=== PATIENT | female | born 1980 | race Caucasian/White ===

== ENCOUNTER 2020-11-29 15:23 | Outpatient (REF) | payer MEDICARE, MEDICAID, SELFPAY ==
[2020-11-30 11:57] LABS: BV Int Neg Control Negative (Negative); BV Int Pos Control Positive (Positive)
[2020-12-01 21:42] LABS: C. trachomatis RNA TMA NOT DETECTED (NOT DETECTED); N. gonorrhoeae RNA TMA NOT DETECTED (NOT DETECTED)
== END 2020-11-29 15:24 | disposition home or self-care (01) ==
LOC: HO.LAB 15:23
PROVIDERS: Visit Provider Advanced Practice Midwife
DX: Z20.2 Contact with and (suspected) exposure to infections with a predominantly sexual mode of transmission (principal); K08.89 Other specified disorders of teeth and supporting structures; Z13.1 Encounter for screening for diabetes mellitus; Z13.220 Encounter for screening for lipoid disorders; Z13.29 Encounter for screening for other suspected endocrine disorder
CPT/HCPCS: 36415; 80053; 80061; 83036; 84443; 85025; 86704; 86780; 86803; 87389; 87480; 87491; 87510; 87591; 87660; 99212

== ENCOUNTER 2020-11-29 16:19 | Outpatient (REF) | payer MEDICARE, MEDICAID, SELFPAY ==
[2020-11-29 17:14] LABS: MANUAL DIFF FLAG NO
[2020-11-29 17:28] LABS: Basophils Absolute Auto 0.1 X10*3/uL (0.0-0.2); Basophils Percent Auto 0.5 % (0-2); Eosinophils Absolute Auto 0.1 X10*3/uL (0.0-0.4); Eosinophils Percent Auto 1.2 % (0-4); Hematocrit 41.1 % (37-47); Hemoglobin 13.2 g/dl (12.0-16.0); Imm Gran Abs Auto 0.02 X10*3/uL (0.00-0.03); Imm Gran Pct Auto 0.2 % (0.0-0.4); Lymphocytes Absolute Auto 2.5 X10*3/uL (1.2-4.9); Lymphocytes Percent Auto 26.5 % (20-40); Mean Corpuscular HGB Conc 32.1 g/dl (31.0-35.0); Mean Corpuscular Hemoglobin 27.7 pg (27.0-33.0); Mean Corpuscular Volume 86.2 fL (80-98); Mean Platelet Volume 10.3 fL (9.4-12.3); Monocytes Absolute Auto 0.7 X10*3/uL (0.1-1.2); Monocytes Percent Auto 7.6 % (2-11); Platelet Count 243 X10*3/uL (160-400); Red Blood Count 4.77 X10*6/uL (4.20-5.50); Red Cell Distribution Width 13.3 % (11.0-16.0); White Blood Count 9.3 X10*3/uL (4.8-10.8)
[2020-11-29 17:40] LABS: Alanine Aminotransferase 6 U/L (0-31); Albumin Level 4.1 g/dL (3.5-5.0); Alkaline Phosphatase 58 U/L (39-117); Anion Gap 11 (12-20); Aspartate Amino Transferase 13 U/L (5-31); Bilirubin Total 0.7 mg/dL (0.0-1.0); Blood Urea Nitrogen 7 mg/dL (9-16); Calcium 8.6 mg/dL (8.4-10.2); Carbon Dioxide 28 mmol/L (22-29); Chloride 107 mmol/L (96-108); Cholesterol 183 mg/dL; Estimated Glomerular Filt Rate > 60; Glucose Fasting 89 mg/dL (60-99); HDL Cholesterol 43 mg/dL; LDL Cholesterol Calculated 126 mg/dl; Sodium 141 mmol/L (135-145); Total Protein 6.4 g/dL (6.5-8.0); Triglycerides 72 mg/dL
[2020-11-29 17:58] LABS: Syphilis Screen Nonreactive (Nonreactive)
[2020-11-29 18:00] LABS: TSH reflex Free T4 0.59 mIU/mL (0.32-4.0)
[2020-11-29 18:12] LABS: Estimated Average Glucose 97 mg/dL
[2020-11-30 09:08] LABS: ~HepC Num1 0.24 S/CO (0.00-0.79); ~Hepatitis C Antibody Nonreactive (Nonreactive)
[2020-11-30 09:19] LABS: HBc Num1 0.09 S/CO (0.00-0.79); HIV AB/AG Nonreactive (Nonreactive); HIV Num 1 0.16 S/CO (0.00-0.99); Hepatitis B Core Antibody Nonreactive (Nonreactive)
== END 2020-11-29 16:20 | disposition home or self-care (01) ==
LOC: HO.LAB 16:19
PROVIDERS: PCP Physician Assistant; Visit Provider Advanced Practice Midwife
DX: Z13.89 Encounter for screening for other disorder (principal)
CPT/HCPCS: 36415; 80053; 80061; 83036; 84443; 85025; 86704; 86780; 86803; 87389

== ENCOUNTER 2021-06-14 11:44 | Outpatient (REF) | payer MEDICARE, MEDICAID, SELFPAY ==
[2021-06-14 12:53] LABS: Glucose Urine UA NEG (NEG); Leukocyte Esterase Urine NEG (NEG); Nitrite Urine NEG (NEG); Urine Blood NEG (NEG); Urine Ketones NEG (NEG); Urine Protein NEG (NEG-TRACE)
[2021-06-14 12:59] LABS: Appearance Urine CLEAR; Color Urine YELLOW
[2021-06-14 13:05] LABS: Hematocrit 41.1 % (37-47); Hemoglobin 13.3 g/dl (12.0-16.0); Mean Corpuscular HGB Conc 32.4 g/dl (31.0-35.0); Mean Corpuscular Hemoglobin 27.4 pg (27.0-33.0); Mean Corpuscular Volume 84.6 fL (80-98); Mean Platelet Volume 10.4 fL (9.4-12.3); Platelet Count 263 X10*3/uL (160-400); Red Blood Count 4.86 X10*6/uL (4.20-5.50); Red Cell Distribution Width 13.6 % (11.0-16.0); White Blood Count 7.6 X10*3/uL (4.8-10.8)
[2021-06-14 13:15] LABS: Estimated Average Glucose 100 mg/dL; Hemoglobin A1c % 5.1 %
[2021-06-14 13:19] LABS: Albumin Level 4.1 g/dL (3.5-5.0); Alkaline Phosphatase 56 U/L (39-117); Anion Gap 12 (12-20); Aspartate Amino Transferase 12 U/L (5-31); Blood Urea Nitrogen 10 mg/dL (9-16); Calcium 9.1 mg/dL (8.4-10.2); Carbon Dioxide 26 mmol/L (22-29); Chloride 105 mmol/L (96-108); Estimated Glomerular Filt Rate > 60; Glucose Fasting 89 mg/dL (60-99); Potassium 4.3 mmol/L (3.3-5.1); Sodium 139 mmol/L (135-145); Total Protein 6.5 g/dL (6.5-8.0)
[2021-06-14 13:32] LABS: Alanine Aminotransferase < 6 U/L (0-31)
[2021-06-14 13:36] LABS: TSH reflex Free T4 1.12 uIU/mL (0.32-4.0)
== END 2021-06-14 11:45 | disposition home or self-care (01) ==
LOC: HO.LAB 11:44
PROVIDERS: Absent Provider Advanced Practice Midwife; PCP Physician Assistant; Visit Provider Physician Assistant
DX: R30.0 Dysuria (principal); I10 Essential (primary) hypertension; Z12.39 Encounter for other screening for malignant neoplasm of breast; Z13.1 Encounter for screening for diabetes mellitus
CPT/HCPCS: 36415; 80053; 81003; 83036; 84443; 85027

== ENCOUNTER 2021-06-15 12:22 | Outpatient (REF) | payer MEDICARE, MEDICAID, SELFPAY ==
--- NOTE | ~2021-06-15 | XR_ITS ---
EXAMINATION: XR CERVICAL SPINE CLINICAL INFORMATION: Cervicalgia. COMPARISON: None TECHNIQUE: 3 views of the cervical spine were obtained. FINDINGS: There are no prevertebral soft tissue or bony abnormalities demonstrated. No compression fractures or subluxations are identified. Alignment is maintained at the atlanto-axial articulation. The disc spaces are preserved. No endplate changes are seen. The prevertebral soft tissues are normal. The foramina are patent. XR/XR cervical spine 3V IMPRESSION: Unremarkable examination.
== END 2021-06-15 12:23 | disposition home or self-care (01) ==
LOC: HO.XRAY 12:22
PROVIDERS: PCP Physician Assistant; Visit Provider Physician Assistant
DX: M54.2 Cervicalgia (principal)
CPT/HCPCS: 72040

== ENCOUNTER 2021-09-08 11:36 | Outpatient (RCR) | payer MEDICARE, MEDICAID, SELFPAY ==
--- NOTE | 2021-09-08 13:39 | MHC.PT.EP ---
[facility] [place] Office [place] Office [place] Office [address] [place] [address] [phone] F: [phone] F: [phone] F: [phone] F: [phone] Physical Therapy Plan of Care Date of Evaluation: Date of Surgery: n/a Diagnosis: unspecified thoracic, thoracolumbar disc disorder Assessment: Patient is a 41 year old female presenting to PT with complaints of pain in her low back extending down BLE. Pt reports onset of pain began 10 years ago due to insidious onset. She presents today with impairments in lumbar ROM, pain, posture, hip strength, core strength, and +ttp lumbar paraspinals. 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 Pt expresses care home goal not specified, and is motivated to work towards this in PT. Clinical presentation today is most consistent with signs and sx associated with low back pain possible with some discogenic componenet and pt will benefit from skilled PT to address the following problems and impairments noted upon evaluation: lumbar ROM, pain, posture, hip strength, core strength, and +ttp lumbar paraspinals. These problems limit the patient with the following functional activities: ambulation, sleep, bending, lifting, ADLs, sitting, and transfers . The prescribed treatment plan of care is medically necessary. Co-morbidities of latex allergy and hx cervical cancer were identified and taken into considerations of plan of care. Pt was educated on HEP, role of PT, prognosis, POC. Frequency and Duration: The patient will be seen 2 x week x 4 weeks Short Term Goals: Pt will demonstrate improved postural awareness by sitting with biomechanically correct posture without cues throughout session to improve overall postural function in 2 weeks. Pt will demonstrate good TA recruitment in hook lying, sitting, and standing in 2 weeks. Pt will demonstrate lumbar AROM in available range without increase in pain in 2 weeks. Pt will demonstrate increased B hip strength by 1/3 MMT for increased lumbopelvic stability in 2 weeks. Pt will demonstrate only minimal ttp to lumbar paraspinals in 2 weeks. Care Home Goals: Pt will demonstrate improved ability to change positions in bed in 4 weeks with pain <3/10 for improved ability to transfer. Pt will demonstrate ability to complete all ADLs including caring for her kids with pain <3/10 in 4 weeks to allow return to PLOF. Pt will demonstrate ability to bend with pain <3/10 in 4 weeks to improve ability to clean at home. Pt will demonstrate ability to ambulate community distances in 4 weeks with min to no pain for improved access to the community. Treatment Plan: Modalities to reduce pain, spasms and effusion. Manual therapy to restore motion and function. Therapeutic exercise to improve strength and flexibility. Neuromuscular re-education for posture and balance. Therapeutic activities to return to functional activities of daily living. Electronically signed by: Yolanda Chowdhury, PT, DPT, ATC Please sign and return to therapist. Thank you for your referral.
--- NOTE | 2021-09-21 12:52 | MHC.PT.DC ---
[facility] [place] Office [place] Office [place] Office [address] [place] [address] [phone] F: [phone] F: [phone] F: [phone] F: [phone] Physical Therapy Discharge Report Diagnosis: unspecified thoracic, thoracolumbar disc disorder Date of Surgery: n/a Date of Evaluation: 09/08/21 Date of Discharge: 09/21/21 Treatments to Date: 1 Cancellations to Date: 0 No Shows to Date: 3 Discharge Status: Visit Non-compliance Discharge Summary: Pt has failed to comply with [facility] [place] policy and no showed 3 appointments. She has not returned since evaluation and her current status is unknown. Electronically signed by: Yolanda Chowdhury, PT, DPT, ATC Please sign and return to therapist. Thank you for your referral.
== END 2021-09-21 12:52 | disposition home or self-care (01) ==
LOC: HO.PT 11:36
PROVIDERS: PCP Physician Assistant; Visit Provider Physician Assistant
DX: M51.9 Unspecified thoracic, thoracolumbar and lumbosacral intervertebral disc disorder (principal)
CPT/HCPCS: 97110; 97161

== ENCOUNTER 2022-01-06 10:55 | Outpatient (REF) | payer MEDICARE, MEDICAID, OTHER, SELFPAY ==
--- NOTE | ~2022-01-06 | XR_ITS ---
EXAMINATION: XR THORACIC SPINE XR CERVICAL SPINE CLINICAL INFORMATION: Pain of thoracic spine. Cervicalgia. COMPARISON: Cervical spine radiographs from 06/15/2021 TECHNIQUE: Cervical spine, 5 views Thoracic spine, 3 views FINDINGS: Cervical spine: The craniocervical junction is normal. The dens and atlantodental articulation are intact. The cervical vertebra have normal height. Alignment is normal. No fracture, subluxation or prevertebral soft tissue swelling. No evidence of neural foraminal stenosis. The disc spaces are normal. The visualized lung apices are normal. Thoracic spine: The thoracic vertebra have normal height and alignment. The disc spaces are maintained. No vertebral endplate erosion or paraspinal soft tissue swelling. The visualized lungs are well expanded and clear. Cardiomediastinal silhouette is normal. XR/XR thoracic spine 3V IMPRESSION: Normal radiographic examinations of the cervical and thoracic spine.
--- NOTE | ~2022-01-06 | XR_ITS ---
EXAMINATION: XR THORACIC SPINE XR CERVICAL SPINE CLINICAL INFORMATION: Pain of thoracic spine. Cervicalgia. COMPARISON: Cervical spine radiographs from 06/15/2021 TECHNIQUE: Cervical spine, 5 views Thoracic spine, 3 views FINDINGS: Cervical spine: The craniocervical junction is normal. The dens and atlantodental articulation are intact. The cervical vertebra have normal height. Alignment is normal. No fracture, subluxation or prevertebral soft tissue swelling. No evidence of neural foraminal stenosis. The disc spaces are normal. The visualized lung apices are normal. Thoracic spine: The thoracic vertebra have normal height and alignment. The disc spaces are maintained. No vertebral endplate erosion or paraspinal soft tissue swelling. The visualized lungs are well expanded and clear. Cardiomediastinal silhouette is normal. XR/XR cervical spine 4V IMPRESSION: Normal radiographic examinations of the cervical and thoracic spine.
[2022-01-06 11:52] LABS: Hematocrit 41.9 % (37.0-47.0); Hemoglobin 13.5 g/dl (12.0-16.0); Mean Corpuscular HGB Conc 32.2 g/dl (31.0-35.0); Mean Corpuscular Volume 86.9 fL (80.0-98.0); Mean Platelet Volume 9.9 fL (9.4-12.3); Platelet Count 274 X10*3/uL (160-400); Red Blood Count 4.82 X10*6/uL (4.20-5.50); Red Cell Distribution Width 13.7 % (11.0-16.0); White Blood Count 5.9 X10*3/uL (4.8-10.8)
[2022-01-06 11:53] LABS: Appearance Urine HAZY; Color Urine YELLOW; Glucose Urine UA NEG (NEG); Leukocyte Esterase Urine NEG (NEG); Nitrite Urine POS (NEG); PH 6.5 (5.0-8.0); UACC Culture Trigger YES; Urine Blood NEG (NEG); Urine Ketones NEG (NEG); Urine Protein NEG (NEG-TRACE)
[2022-01-06 12:14] LABS: Alanine Aminotransferase < 6 U/L (0-31); Alkaline Phosphatase 53 U/L (39-117); Anion Gap 10 (12-20); Aspartate Amino Transferase 11 U/L (5-31); Bilirubin Direct 0.3 mg/dL (0.0-0.5); Bilirubin Total 0.7 mg/dL (0.0-1.0); Blood Urea Nitrogen 8 mg/dL (9-16); Calcium 9.1 mg/dL (8.4-10.2); Carbon Dioxide 28 mmol/L (22-29); Chloride 107 mmol/L (96-108); Estimated Glomerular Filt Rate > 60; Glucose Random 113 mg/dL (60-115); Potassium 4.6 mmol/L (3.3-5.1); Sodium 140 mmol/L (135-145); Total Protein 6.2 g/dL (6.5-8.0)
[2022-01-06 12:44] LABS: WBC Urine 0-2 /HPF (0-4)
[2022-01-06 12:47] LABS: Bacteria Urine 3+ /LPF; RBC Urine 0-2 /HPF (0); Squamous Epithelial Cell Urine 1+ /LPF; Trichomonas Urine NOTED
[2022-01-07 08:42] LABS: SARS COV2 IgG Positive (Negative)
[2022-01-13 23:17] LABS: Estrogen 310.3 pg/mL
== END 2022-01-06 10:56 | disposition home or self-care (01) ==
LOC: HO.LAB 10:55
PROVIDERS: PCP Physician Assistant; Visit Provider Physician Assistant
DX: M54.2 Cervicalgia (principal); M54.6 Pain in thoracic spine; B34.9 Viral infection, unspecified; R30.0 Dysuria; R23.2 Flushing; Z01.84 Encounter for antibody response examination
CPT/HCPCS: 36415; 72050; 72072; 80048; 80076; 81001; 81003; 82672; 85027; 86769; 87086; 87088; 87186

== ENCOUNTER 2022-04-10 10:55 | Outpatient (REF) | payer OTHER, SELFPAY ==
--- NOTE | ~2022-04-10 | XR_ITS ---
EXAMINATION: XR LUMBOSACRAL SPINE CLINICAL INFORMATION: COMPARISON: None TECHNIQUE: Three views of the lumbosacral spine. FINDINGS: The vertebral bodies and posterior elements are normal. Well-developed partially lumbarized S1. The disc spaces are preserved and the vertebral alignment is normal. The paraspinal soft tissues are normal. XR/XR lumbar spine 2-3V IMPRESSION: Normal radiograph. Normal variant, well-developed partially lumbarized S1. Intervertebral disc spaces are preserved.
== END 2022-04-10 10:56 | disposition home or self-care (01) ==
LOC: HO.XRAY 10:55
PROVIDERS: PCP Physician Assistant; Visit Provider Physician Assistant
DX: M51.9 Unspecified thoracic, thoracolumbar and lumbosacral intervertebral disc disorder (principal)
CPT/HCPCS: 72100

== ENCOUNTER 2022-04-28 10:24 | Outpatient (REF) | payer OTHER, SELFPAY ==
--- NOTE | ~2022-04-28 | MR_ITS ---
EXAMINATION: MR LUMBAR SPINE WITHOUT CONTRAST CLINICAL INFORMATION: Spinal stenosis. Status post fall. Legs go numb. Tingling of legs. Low back pain. Difficulty sleeping. Self-reported bilateral leg weakness, numbness and pain. COMPARISON: Lumbar spine radiograph 04/10/2022. TECHNIQUE: MRI of the lumbar spine was obtained using routine sequences without contrast. FINDINGS: VERTEBRAL BODIES AND PARASPINAL STRUCTURES: 6 lumbar type vertebral bodies are identified vertebral body levels are enumerated with reference to the inferior most definitive rib bearing vertebral body which is presumed to represent T12. On this basis, the S1 vertebral body demonstrates near complete bilateral lumbarization commensurate with the enumeration scheme utilized on the 04/10/2022 exam. Vertebral body height and alignment are normal in appearance. No suspicious marrow abnormalities are identified. Near-complete intervertebral disc is present at the S1-S2 level utilizing the enumeration scheme detailed above. CONUS MEDULLARIS AND CAUDA EQUINA: Normal, terminating at the level of L1-L2 SPINAL LEVELS: T12-L1: Normal. No central or foraminal stenoses. Normal intervertebral disc. L2-L3: Normal L3-L4: Minimal posterior broad-based disc bulge. No significant central or foraminal stenoses. Mild bilateral ligamentum flavum hypertrophy. L4-L5 5: Mild central and mild bilateral foraminal stenoses secondary to a mild posterior broad-based disc bulge with bilateral intraforaminal extension. Moderate bilateral ligamentum flavum hypertrophy and mild left facet hypertrophic changes. L5-S1: Mild posterior broad-based disc bulge mildly effacing the ventral thecal sac CSF space minimally abutting the traversing left and right S1 nerve roots (series 5 image 24). No significant foraminal stenoses. Normal intervertebral disc height. S1-S2:: No central or foraminal stenoses. 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 Of note, anomalous vertebral bodies may give rise to ambiguity in vertebral body level enumeration. *L5-S1 mild posterior broad-based disc bulge resulting in minimal bilateral S1 nerve root abutment; elsewhere within the lumbar spine, no direct nerve root impingement or significant central or foraminal stenoses noted.
== END 2022-04-28 10:25 | disposition home or self-care (01) ==
LOC: HO.MRI 10:24
PROVIDERS: Visit Provider Physician Assistant
DX: M48.061 Spinal stenosis, lumbar region without neurogenic claudication (principal); G99.2 Myelopathy in diseases classified elsewhere
CPT/HCPCS: 72148

== ENCOUNTER 2022-10-23 10:45 | Outpatient (REF) | payer OTHER, SELFPAY ==
[2022-10-23 13:19] LABS: Alanine Aminotransferase 8 U/L (0-31); Albumin Level 4.1 g/dL (3.5-5.0); Alkaline Phosphatase 55 U/L (39-117); Anion Gap 11 (12-20); Aspartate Amino Transferase 14 U/L (5-31); Bilirubin Total 0.5 mg/dL (0.0-1.0); Blood Urea Nitrogen 8 mg/dL (9-16); Calcium 8.9 mg/dL (8.4-10.2); Carbon Dioxide 27 mmol/L (22-29); Chloride 107 mmol/L (96-108); Estimated Glomerular Filt Rate > 60; Glucose Random 86 mg/dL (60-115); Potassium 4.2 mmol/L (3.3-5.1); Sodium 141 mmol/L (135-145); Total Protein 6.2 g/dL (6.5-8.0)
[2022-10-25 00:25] LABS: Follicle Stimulating Hormone 16.2 mIU/mL
== END 2022-10-23 10:46 | disposition home or self-care (01) ==
LOC: HO.LAB 10:45
PROVIDERS: Visit Provider Physician Assistant
DX: R23.2 Flushing (principal); Z13.29 Encounter for screening for other suspected endocrine disorder; Z13.1 Encounter for screening for diabetes mellitus
CPT/HCPCS: 36415; 80053; 83001; 84443

== ENCOUNTER → 2022-11-07 08:37 | Outpatient (REF) | payer OTHER, MEDICAID, SELFPAY ==
--- NOTE | 2022-11-07 08:40 | CA_ITS ---
Acquisition Time: 2022-11-07 09:08:30 Total Exercise Time: 00:05:17 Test Indications: CP Medications: SEE CHART Protocol: ELIZABETH Max HR: 113 BPM 63% of Pred: 177 BPM Max BP: 148/072 mmHG Max Work Load: 7.0 METS Exercise stress test with exercise 5 min 17 sec of Elizabeth protocol, achieving 64% MPHR with need to stop due severe sharp mid chest pains with clutching of chest and reported increased pain with inspiration ( mid CP 5/10 at baseline), without arrythmia during exercise, with normotensive response to exercise, with nondiagnostic EKG for ischemia due to suboptimal heart rate. In recovery he chest discomfort gradually improved back to baseline. Test reviewed with Dr Amador Msg sent to her PCP with report and recommedation for an exercise nuclear stress test. Referred By: Nathaniel Basurto Overread By: VAZQUEZ ALEXANDER
== END ==
LOC: HO.CARD 08:37
PROVIDERS: Visit Provider Physician Assistant
DX: R07.89 Other chest pain (principal)
CPT/HCPCS: 93017

== ENCOUNTER → 2022-12-06 08:52 | Outpatient (REF) | payer OTHER, MEDICAID, SELFPAY ==
--- NOTE | ~2022-12-06 | NM_ITS ---
Lexiscan Myocardial perfusion study Indication: Chest pain, for coronary disease and ischemia Technique: The patient was brought in for a Lexiscan perfusion study on 12/06/2022 and was injected 0.4 mg of Lexiscan intravenously. Within a minute of this injection 25 mCi of sestamibi was given intravenously. Images were obtained using the SPECT gamma camera interlaced with the gating device. Images were obtained in supine position. Resting perfusion study was performed on 12/07/2022. Patient was administered 31 mCi of sestamibi intravenously at rest. Images were then obtained in supine position. Images were processed with the software and compared side to side in short axis, horizontal long axis and vertical long axis views. Total DLP 70mGy-cm. Findings: Raw acquisition reviewed. The stress perfusion study showed no significant perfusion abnormality. Both uncorrected as well as CT attenuation corrected images were reviewed. There is evidence of subdiaphragmatic tracer uptake as well. The gated study shows normal LV systolic function with calculated LVEF of 58%. LV cavity is normal in size. The gated study shows normal wall thickening and contraction of segments. Resting study shows no significant perfusion abnormality. Gating at rest reveals normal wall motion with ejection fraction at 45%-visually appears normal. The findings are consistent with no reversible or fixed perfusion defects. NM/NM cardiolite stress test Impression: 1. Myocardial perfusion imaging study shows normal myocardial perfusion. 2. Gated LVEF is normal. 3. Transient ischemic dilatation not present. EKG component of the test reported separately.
--- NOTE | 2022-12-06 08:55 | CA_ITS ---
Acquisition Time: 2022-12-06 09:00:57 Total Exercise Time: 00:02:00 Test Indications: chest pain Medications: Protocol: LEXISCAN Max HR: 126 BPM 71% of Pred: 177 BPM Max BP: 118/080 mmHG Max Work Load: 1.6 METS Pharmacological stress test with Lexiscan injection, while walking slow on treadmill, with 7/10 anterior chest discomfort at baseline which did not change during test, without arrythmia, with normotensive response to injection, with nondiagnostic EKG for ischemia. Nuclear images pending. Test reviewed with Dr Romo. Referred By: Nathaniel Basurto Overread By: VAZQUEZ ALEXANDER
== END ==
LOC: HO.CARD 08:52
PROVIDERS: PCP Physician Assistant; Visit Provider Physician Assistant
DX: R07.89 Other chest pain (principal); R94.39 Abnormal result of other cardiovascular function study
CPT/HCPCS: 78452; 93017; A9500; J2785

== ENCOUNTER 2022-12-07 11:12 | Outpatient (REF) | payer OTHER, MEDICAID, SELFPAY ==
[2022-12-12 16:30] LABS: HPV mRNA E6/E7 rflx Not Detected (Not Detected)
== END 2022-12-07 11:13 | disposition home or self-care (01) ==
LOC: HO.LNP 11:12
PROVIDERS: PCP Physician Assistant; Visit Provider Advanced Practice Midwife
DX: Z01.419 Encounter for gynecological examination (general) (routine) without abnormal findings (principal); Z11.51 Encounter for screening for human papillomavirus (HPV)
CPT/HCPCS: 87624; 88142

== ENCOUNTER 2022-12-07 12:09 | Outpatient (REF) | payer OTHER, MEDICAID, SELFPAY ==
[2022-12-08 08:44] LABS: HBc Num1 0.08 S/CO (0.00-0.79); HIV AB/AG Nonreactive (Nonreactive); HIV Num 1 0.06 S/CO (0.00-0.99); Hepatitis B Core Antibody Nonreactive (Nonreactive); ~HepC Num1 0.15 S/CO (0.00-0.79); ~Hepatitis C Antibody Nonreactive (Nonreactive)
[2022-12-08 08:59] LABS: Syphilis Screen Nonreactive (Nonreactive)
== END 2022-12-07 12:10 | disposition home or self-care (01) ==
LOC: HO.LAB 12:09
PROVIDERS: PCP Physician Assistant; Visit Provider Advanced Practice Midwife
DX: Z11.4 Encounter for screening for human immunodeficiency virus [HIV] (principal); Z20.2 Contact with and (suspected) exposure to infections with a predominantly sexual mode of transmission
CPT/HCPCS: 36415; 86704; 86780; 86803; 87389

== ENCOUNTER 2022-12-28 10:48 | Outpatient (REF) | payer MEDICARE, MEDICAID, SELFPAY ==
--- NOTE | ~2022-12-28 | MM_ITS ---
EXAMINATION: MM SCREENING DIGITAL BREAST TOMOSYNTHESIS, BILATERAL CLINICAL INFORMATION: Screening. Asymptomatic. The lifetime risk of breast cancer based on the Tyrer-Cuzick Model is 5.1%. COMPARISON: Mammography: August 19, 2019 and studies dating back to August 13, 2015 TECHNIQUE: Digital breast tomosynthesis is performed in both the craniocaudal and mediolateral oblique views along with computer-aided detection (CAD). Synthesized 2D images are generated from the tomosynthesis. FINDINGS: The breasts are extremely dense, which lowers the sensitivity of mammography (ACR BI-RADS breast composition Category d). There is a stable parenchymal pattern of the left breast with no new abnormal dominant mass or suspicious grouping of microcalcifications. Within the medial aspect of the right breast approximately 3 cm from nipple there is a partially circumscribed density for which spot compression view is recommended. MM/MM tomosynthesis screening BI IMPRESSION: Right breast density for further evaluation. ASSESSMENT: BI-RADS 0: Incomplete - Need Additional Imaging Evaluation RECOMMENDATION: 1. Additional views of the right breast 2. Targeted ultrasound if warranted after review of the additional views. 3. Radiology department staff will contact the patient for additional imaging. This patient's information was entered into a reminder system with a target due date for their next mammogram.
== END 2022-12-28 10:49 | disposition home or self-care (01) ==
LOC: HO.MAMMO 10:48
PROVIDERS: Visit Provider Advanced Practice Midwife
DX: Z12.31 Encounter for screening mammogram for malignant neoplasm of breast (principal)
CPT/HCPCS: 77063; 77067

== ENCOUNTER 2023-01-11 13:38 | Outpatient (REF) | payer MEDICARE, MEDICAID, SELFPAY ==
--- NOTE | ~2023-01-11 | MM_ITS ---
EXAMINATION: MM DIAGNOSTIC DIGITAL BREAST TOMOSYNTHESIS, RIGHT US DIAGNOSTIC ULTRASOUND BREAST, RIGHT CLINICAL INFORMATION: Recall from screening for question of asymmetric density anterior medial right breast. COMPARISON: Mammography: 12/28/2022, 08/19/2019; outside mammography 08/13/2015 ([facility]) TECHNIQUE: Digital breast tomosynthesis is performed. 2D images are generated from the tomosynthesis. The following views are obtained: Spot CC. Ultrasound right breast is targeted to the medial breast. Grayscale imaging and color Doppler are performed without and with harmonics. FINDINGS: The breasts are heterogeneously dense, which may obscure small masses (ACR BI-RADS breast composition Category c). Breast tissue composition borders on average fibroglandular. Additional views show no developing density or interval mass or architectural abnormality from prior studies. Ultrasound demonstrates no cystic or solid mass or architectural abnormality or focal duct ectasia. No skin thickening or edema tracking in soft tissue planes. Results are discussed with the patient at time of visit. MM/MM tomosynthesis added views R IMPRESSION: -No mammographic evidence of malignancy. -Normal targeted right breast ultrasound. ASSESSMENT: BI-RADS 1: Negative RECOMMENDATION: Routine annual mammography screening. This patient's information was entered into a reminder system with a target due date for their next mammogram.
== END 2023-01-11 13:39 | disposition home or self-care (01) ==
LOC: HO.MAMMO 13:38
PROVIDERS: PCP Physician Assistant; Visit Provider Advanced Practice Midwife
DX: R92.2 Inconclusive mammogram (principal)
CPT/HCPCS: 76642; 77061; 77065

== ENCOUNTER → 2023-02-05 10:37 | Outpatient (BNVA) | payer MEDICARE, MEDICAID, SELFPAY | PROVIDERS: PCP Physician Assistant; Visit Provider Internal Medicine | DX: K62.5 Hemorrhage of anus and rectum (principal); K64.9 Unspecified hemorrhoids | CPT/HCPCS: 99202 ==

== ENCOUNTER 2023-02-13 12:50 | Outpatient (REF) | payer MEDICARE, MEDICAID, SELFPAY ==
--- NOTE | 2023-02-13 12:56 | ECG_ITS ---
Test Reason : CP Blood Pressure : / mmHG Vent. Rate : 073 BPM Atrial Rate : 073 BPM P-R Int : 156 ms QRS Dur : 068 ms QT Int : 368 ms P-R-T Axes : 083 077 066 degrees QTc Int : 405 ms Normal sinus rhythm Normal ECG No previous ECGs available Referred By: Nathaniel Basurto Electronically Signed By:SOFÍA CARBAJAL MD
[2023-02-13 13:18] LABS: Hematocrit 41.7 % (37.0-47.0); Hemoglobin 13.3 g/dl (12.0-16.0); Mean Corpuscular HGB Conc 31.9 g/dl (31.0-35.0); Mean Corpuscular Hemoglobin 27.3 pg (27.0-33.0); Mean Corpuscular Volume 85.5 fL (80.0-98.0); Mean Platelet Volume 9.5 fL (9.4-12.3); Platelet Count 241 X10*3/uL (160-400); Red Blood Count 4.88 X10*6/uL (4.20-5.50); Red Cell Distribution Width 13.5 % (11.0-16.0); White Blood Count 5.9 X10*3/uL (4.8-10.8)
[2023-02-13 14:05] LABS: Iron 106 mcg/dL (30-160); Percent Iron Saturation 38 % (15-50); Total Iron Binding Capacity 278 mcg/dL (228-428); Unsaturated Iron Binding 172 ug/dL
[2023-02-13 14:18] LABS: Ferritin 38 ng/mL (10-250)
== END 2023-02-13 12:51 | disposition home or self-care (01) ==
LOC: HO.LAB 12:50
PROVIDERS: Absent Provider Physician Assistant; PCP Physician Assistant; Visit Provider Internal Medicine
DX: K62.5 Hemorrhage of anus and rectum (principal); R07.89 Other chest pain
CPT/HCPCS: 36415; 82728; 83540; 85027; 93005

== ENCOUNTER 2023-06-13 09:07 | Outpatient (AMB) | payer MEDICARE, MEDICAID, SELFPAY ==
[2023-06-13 09:13] VITALS: BP 116/80; PULSE 77; O2SAT 99; BMI 20.5
--- NOTE | 2023-06-13 09:13 | A.OFFPC_ITS ---
Vital Signs 06/13/23 09:13 Height 5 ft 7 in Weight 131 lb BMI 20.5 BP 116/80 Blood Pressure Location Lt brachial Position Sitting Pulse 77 Pulse Source Pulse Oximeter Pulse Oximetry (%) 99 Oxygen Delivery Method Room Air Intake Visit Reasons: f/u Smoking cessation Vector Control Specialist Required: No Accompanied by: Self / Same As Patient Allergies latex Allergy (Unknown, Verified 06/13/23 09:28) pruritis orange Allergy (Unknown, Verified 06/13/23 09:28) Pruritis Medication List - Last Reconciled 06/13/23 by Nathaniel Basurto PA-C albuterol sulfate 90 mcg/actuation 1 inh inhalation QID PRN 30 days amitriptyline 25 mg PO BEDTIME 30 days betamethasone dipropionate 0.05% appl topical clonidine HCl 0.2 mg PO BID 30 days cyclobenzaprine 10 mg PO BEDTIME 30 days hydrocortisone 1% 1 appl TX DAILY ibuprofen 800 mg PO TID PRN lorazepam 0.5 mg PO DAILY PRN 30 days minoxidil mg PO nicotine 1 inh inhalation Q2-4H PRN 30 days nicotine (polacrilex) (Nicorette) 2 mg buccal Q2H PRN 30 days omeprazole 20 mg PO DAILY ondansetron HCl 8 mg PO Q12H 10 days polyethylene glycol 3350 (Miralax) 17 grams PO DAILY prednisone 10 mg PO DAILY 5 days sennosides (Natural Senna Laxative) 8.6 mg PO DAILY sertraline (Zoloft) 50 mg PO DAILY tramadol 50 mg PO DAILY PRN 7 days Tobacco use date assessed: 06/13/23 Dental Screening Dental Screen Date: 06/13/23 Did you have a dental visit in the last 12 months?: Yes Did you have a dental problem in the last 6 months where you did not have access to dental care?: No Was dental information given to patient?: Patient has dentist HPI f/u Smoking cessation HPI Details Patient is a 43-year-old female follow-up visit.. Patient has a past medical history significant for tobacco use disorder, generalized anxiety disorder, chronic lumbar spine pain, migraines. Concern--> she reports her frequent episodes of hot flashes to the point that it could incapacitates her and needs to use a fan to help cool down.? She does report she physically has a tactile temperature during these attacks.? She reports these attacks happen 3 to 4 times a day She does report having partial hysterectomy though still remains her with her ovaries.? Unknown if she is perimenopausal. We have checked her estrogen FSH levels which are not in postmenopausal levels. .. Tabacco use disorder:? unfortunately still smoking though has cut down some.? She continues to try to quit smoking. .. Chronic lumbar spine pain:? Continues to be on worker's Comp due to continue neck and lower back pain.? 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 ? Continues the use of ibuprofen and p.r.n. use of tramadol with minimal relief of her back pain.? Has done physical therapy though has not gotten any better.? She is awaiting to establish care with pain management. Has gotten Cervical spine and thoracic Xrays? without any significant disease. Has had MRI of her lumbar spine that did show--> *L5-S1 mild posterior broad- based disc bulge resulting in minimal bilateral S1 nerve root abutment. Has seen pain management at [facility] and was advised to increase her dose of gabapentin and perhaps seeing a neurologist for the peripheral neuropathy sympt oms. Unfortunately patient continues to have symptoms of lower back pain and weakness in her lower extremities and she is not interested in seeing a neurologist. Will try for another MRI as it has been nearly a year now and still has symptoms acute low back pains with lower extremity weakness. Will try for 2nd opinion here at the [facility] Medical History Hx of cervical cancer Surgical History H/O colonoscopy History of section History of elbow surgery History of esophagogastroduodenoscopy (EGD) History of hysterectomy History of removal of cyst Family History Father Diabetes PAD (peripheral artery disease) Hypertension Mother CAD (coronary artery disease) Emphysema lung Sister No problems noted. Brother No problems noted. 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 1. Little interest or pleasure in doing things: nearly every day 2. Feeling down, depressed, or hopeless: more than half the days 3. Trouble falling or staying asleep, or sleeping too much: nearly every day 4. Feeling tired or having little energy: not at all 5. Poor appetite or overeating: not at all 6. Feeling bad about yourself - or that you are a failure or have let yourself or your family down: not at all 7. Trouble concentrating on things, such as reading the newspaper or watching television: not at all 8. Moving or speaking so slowly that other people could have noticed. Or the opposite - being so fidgety or restless that you have been moving around a lot more than usual: not at all 9. Thoughts that you would be better off or of hurting yourself in some way: not at all Total score: 8 Depression Screening Interpretation: Negative 16465 - PHQ-9 Billing: Yes Source: Developed by Drs. Milton Yu, Diamante Naik, Syd Wooten and colleagues, with an educational jeffrey from [employer]. Thrive Questionnaire Date Thrive assessed: 03/12/23 I am a: Patient What is your living situation today?: I have a steady place to live Within the past 12 months, did the food you bought not last and you didn't have the money to get more?: Never true Within the past 12 months, did you worry whether your food would run out before you got money to buy more?: Never true Do you have trouble paying for medicines?: No Do you have trouble getting transportation to medical appointments?: No Do you have trouble paying your heating and electricity bill?: No Do you have trouble taking care of your child, family member or friend?: No Do you have trouble with day-to-day activities such as bathing, preparing meals, shopping, managing finances, etc.?: No Are you currently unemployed and looking for a job?: No Are you interested in more education?: No Please select the resources that you would like help with: None Currently or been in a relationship where the following occur: no concerns reported AUDIT C Alcohol Use Questionnaire (AUDIT-C) 1. How often do you have a drink containing alcohol?: Never Total Score: 0 RAMIRO-7 AMB Questionnaire RAMIRO-7 Date RAMIRO - 7 assessed: 06/13/23 Feeling nervous, anxious, or on edge: 3 = Nearly every day Not being able to stop or control worryin = Nearly every day Worrying too much about different things: 3 = Nearly every day Trouble relaxin = Nearly every day Being so restless that it is hard to sit still: 0 = Not at all Becoming easily annoyed or irritable: 0 = Not at all Feeling afraid as if something awful might happen: 3 = Nearly every day Total RAMIRO-7 score (0-4 normal; 5-9 mild; 10-14 moderate; 15-21 severe): 15 Source: Developed by Drs. Milton Yu, Diamante Naik, Syd Wooten and colleagues, with an educational jeffrey from [employer]. RAMIRO-7 Assessment Billing RAMIRO-7 Assessment Tool: RAMIRO-7 Assessment 69229 Physical exam (Primary Care) Vital Signs: Last Vital Signs Pulse 77 06/13/23 09:13 BP 116/80 06/13/23 09:13 Pulse Ox 99 06/13/23 09:13 Oxygen Delivery Method Room Air 06/13/23 09:13 BMI result Body Mass Index 20.5 Tobacco/Smoking Status: Tobacco use Status Tobacco use date assessed 06/13/23 06/13/23 09:23 Patient Tobacco Use Status Current everyday Tobacco 06/13/23 09:23 Tobacco use type Cigarette 06/13/23 09:23 e-Cigarette/Vaping Use Never Used 06/13/23 09:23 Are you ready to quit: No Tobacco cessation counseling provided: Yes Relapse Prevention: discussed the importance of a supportive environment, discussed negative mood or depression after quitting, weight gain after smoking is common and discussed dietary, exercise and/or lifestyle changes Number of minutes spent counselin CPT code: 64033 - 4-10 Minutes PHQ-9: PHQ-9 Score PHQ-9: Total score 8 06/13/23 09:32 Depression Screening Interpretation: Negative Thrive Assessment: Date of Thrive Assessment Date Thrive assessed 03/12/23 06/13/23 09:23 Currently or been in a relationship where the following occur: no concerns reported Assessment and Plan Assessment & Plan (1) RAMIRO (generalized anxiety disorder): Code(s): F41.1 - Generalized anxiety disorder Plan: Patient does seem to be suffering with the generalized anxiety disorder and panic disorder. Patient's RAMIRO-7 score positive for moderate to severe anxiety. Has been able to establish care with a mental health therapist and doing talk therapy. Will increase her SSRI therapy to Zoloft 100 mg for better control of her anxiety. Will supply patient with lorazepam to use on an emergency basis only for panic. (2) Syncope: Code(s): R55 - Syncope and collapse Qualifiers: Syncope type: psychogenic syncope Qualified Code(s): F48.8 - Other specified nonpsychotic mental disorders Plan: Unclear etiology to patient's syncopal episodes. Could be psychogenic as she does report anxiety at the times of her events. Has been checked out at ER after the events though no significant findings have been found. Will check catecholamines (3) Tobacco dependence: Code(s): F17.200 - Nicotine dependence, unspecified, uncomplicated Plan: Patient does understand she needs to quit smoking and has nicotine supplementation available to her. (4) Lumbar disc herniation with myelopathy: Code(s): M51.06 - Intervertebral disc disorders with myelopathy, lumbar region Plan: Patient continues to have signs symptoms own lumbar disc radiculopathy. Continues to have cramping and weakness in her lower extremities. MRI of lumbar spine in 2021 showing broad-based herniation at L5-S1. Will try for new MRI due to continued symptoms and 2nd opinion with [facility]. Orders: Orders Cortisol Random Today F48.8 - Other specified nonpsychotic mental disorders Catecholamines, Frac., Plasma Today F48.8 - Other specified nonpsychotic mental disorders MR lumbar spine wo con Today M51.06 - Intervertebral disc disorders with myelopathy, lumbar region UA CC w/rflx Micro + Cult Today R30.0 - Dysuria, Z20.2 - Contact with and (suspected) exposure to infections with a predominantly sexual mode of transmission Referrals Neuro Spine Referral M51.06 - Intervertebral disc disorders with myelopathy, lumbar region Medications: New sertraline (Zoloft) 100 mg PO DAILY 30 days 30 tabs 3RF F41.1 - Generalized anxiety disorder Changed From tramadol 50 mg PO DAILY 7 days PRN 7 tabs 0RF pain G95.9 - Disease of spinal cord, unspecified, G99.2 - Myelopathy in diseases classified elsewhere, M48.061 - Spinal stenosis, lumbar region without neurogenic claudication, M54.12 - Radiculopathy, cervical region To tramadol 50 mg PO BID 7 days PRN 14 tabs 0RF pain G95.9 - Disease of spinal cord, unspecified, G99.2 - Myelopathy in diseases classified elsewhere, M48.061 - Spinal stenosis, lumbar region without neurogenic claudication, M54.12 - Radiculopathy, cervical region Refilled lorazepam 0.5 mg PO DAILY 30 days PRN 7 tabs 0RF anxiety F41.1 - Generalized anxiety disorder Discontinued sertraline (Zoloft) Discontinued Reason: Doctor's Order 50 mg PO DAILY 90 tabs 1RF F41.1 - Generalized anxiety disorder Coding Level of Care Code Est Pt Level 4 (19144) Diagnoses RAMIRO (generalized anxiety disorder) F41.1 Syncope F48.8 Syncope type: psychogenic syncope Tobacco dependence F17.200 Lumbar disc herniation with myelopathy M51.06 Additional Codes Vital Signs *Quality* - CPT code: 34102 - 4-10 Minutes ([id number]) RAMIRO-7 Assessment Billing - RAMIRO-7 Assessment Tool: RAMIRO-7 Assessment [id number] ([id number])
== END 2023-06-13 10:07 | disposition home or self-care (01) ==
PROVIDERS: PCP Physician Assistant; Visit Provider Physician Assistant
DX: F41.1 Generalized anxiety disorder (principal); F48.8 Other specified nonpsychotic mental disorders; F17.200 Nicotine dependence, unspecified, uncomplicated; M51.06 Intervertebral disc disorders with myelopathy, lumbar region
CPT/HCPCS: 96127; 99214

== ENCOUNTER 2023-06-29 10:43 | Outpatient (REF) | payer MEDICARE, MEDICAID, SELFPAY ==
[2023-06-29 12:37] LABS: Appearance Urine Clear; Color Urine Yellow; Glucose Urine UA Negative (Negative); Leukocyte Esterase Urine Negative (Negative); Nitrite Urine Negative (Negative); PH 7.5 (5.0-9.0); Specific Gravity - Urine 1.015 (1.005-1.025); Urine Blood Negative (Negative); Urine Ketones Negative (Negative); Urine Protein Negative (Neg-Trace)
[2023-06-29 20:12] LABS: TSH reflex Free T4 1.34 uIU/mL (0.32-4.0)
[2023-07-01 06:38] LABS: Follicle Stimulating Hormone 75.9 mIU/mL
[2023-07-05 18:19] LABS: Aldosterone/Renin Ratio 17.6 Ratio (0.9-28.9); Plasma Renin Activity 0.17 ng/mL/h (0.25-5.82)
[2023-07-06 14:04] LABS: Estrogen 69 pg/mL
[2023-07-17 17:18] LABS: Catecholamine Frac, Total 534 pg/mL
== END 2023-06-29 10:44 | disposition home or self-care (01) ==
LOC: HO.LAB 10:43
PROVIDERS: PCP Physician Assistant; Visit Provider Physician Assistant
DX: F48.8 Other specified nonpsychotic mental disorders (principal); J45.20 Mild intermittent asthma, uncomplicated; R30.0 Dysuria; R23.2 Flushing
CPT/HCPCS: 36415; 81003; 82088; 82384; 82533; 82672; 83001; 84443

== ENCOUNTER 2023-09-12 13:52 | Outpatient (AMB) | payer MEDICARE, MEDICAID, SELFPAY ==
[2023-09-12 14:08] VITALS: BP 120/84; PULSE 94; RESP 15; O2SAT 95; BMI 21.0
--- NOTE | 2023-09-12 14:08 | A.OFFPC_ITS ---
Vital Signs 09/12/23 14:08 Height 5 ft 7 in Weight 134 lb 2 oz BMI 21.0 BP 120/84 Blood Pressure Location Lt brachial Position Sitting Respiration 15 Pulse 94 Pulse Source Pulse Oximeter Pulse Oximetry (%) 95 Oxygen Delivery Method Room Air Intake Visit Reasons: f/u RAMIRO/ smoking cessation Horticulturalist Required: No Accompanied by: Self / Same As Patient Allergies latex Allergy (Unknown, Verified 09/12/23 14:17) pruritis orange Allergy (Unknown, Verified 09/12/23 14:17) Pruritis Medication List - Last Reconciled 09/12/23 by Nathaniel Basurto PA-C albuterol sulfate 90 mcg/actuation 1 puff inhalation QID PRN amitriptyline 25 mg PO BEDTIME 30 days clonidine HCl 0.2 mg PO BID 30 days cyclobenzaprine 10 mg PO BEDTIME 30 days ibuprofen 800 mg PO TID PRN lorazepam 0.5 mg PO DAILY PRN 30 days lorazepam 0.5 mg PO DAILY PRN 30 days omeprazole 20 mg PO DAILY ondansetron HCl 8 mg PO Q12H 10 days ondansetron HCl 8 mg PO Q12H 10 days permethrin 5% 1 appl topical Q14D 2 doses prednisone 10 mg PO DAILY 5 days sennosides (Natural Senna Laxative) 8.6 mg PO DAILY sennosides (Natural Senna Laxative) 8.6 mg PO DAILY sertraline (Zoloft) 100 mg PO DAILY 30 days sertraline (Zoloft) 100 mg PO DAILY 30 days tramadol 50 mg PO BID PRN 7 days Tobacco use date assessed: 06/13/23 HPI f/u RAMIRO/ smoking cessation HPI Details Patient is a 43-year-old female follow-up visit.. Patient has a past medical history significant for tobacco use disorder, generalized anxiety disorder, chronic lumbar spine pain, migraines. Concern--> she reports her frequent episodes of hot flashes to the point that it could incapacitates her and needs to use a fan to help cool down.? She does report she physically has a tactile temperature during these attacks.? She reports these attacks happen 3 to 4 times a day She does report having partial hysterectomy though still remains her with her ovaries.? Unknown if she is perimenopausal. We have checked her FSH levels which was somewhat elevated at 75. She reports not having a periods or last 20 years ,has a partial hysterectomy. Advised on trying black cohosh Advised to follow-up with her plastics tooling engineer to discuss possible vasomotor menopausal symptoms. Also reports she has been having some bright red blood per rectum and attributes this to her hemorrhoidal bleeding. Has been trying laxatives which help at times. Generalized anxiety disorder: Continues to suffer with anxiety on nearly daily basis. She is now speaking with a mental health therapist. Continues on SSRI therapy with Zoloft 100 mg daily.. She does use clonidine and lorazepam on a p.r.n. basis for panic attacks. .. Tabacco use disorder:? unfortunately still smoking though has cut down some.? She continues to try to quit smoking. PLAN: She is willing to start chance .. Chronic lumbar spine pain:? Continues to be on worker's Comp due to continue neck and lower back pain.? 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 ? Continues the use of ibuprofen and p.r.n. use of tramadol with minimal relief of her back pain.? Has done physical therapy though has not gotten any better.? She is awaiting to establish care with pain management. Has gotten Cervical spine and thoracic Xrays? without any significant disease. Has had MRI of her lumbar spine that did show--> *L5-S1 mild posterior broad- based disc bulge resulting in minimal bilateral S1 nerve root abutment. Has seen pain management at [facility] and was advised to increase her dose of gabapentin and perhaps seeing a neurologist for the peripheral neuropathy symptoms. Unfortunately patient continues to have symptoms of lower back pain and weakness in her lower extremities and she is not interested in seeing a neurologist. Will try for another MRI as it has been nearly a year now and still has symptoms acute low back pains with lower extremity weakness. Will try for 2nd opinion here at the [facility] Medical History Hx of cervical cancer Surgical History History of esophagogastroduodenoscopy (EGD) H/O colonoscopy History of elbow surgery History of removal of cyst History of hysterectomy History of section Family History Father Diabetes PAD (peripheral artery disease) Hypertension Mother CAD (coronary artery disease) Emphysema lung Sister No problems noted. Brother No problems noted. 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 Milton Yu, Diamante Naik, Syd Wooten and colleagues, with an educational jeffrey from [employer]. Review of Systems Const Denies headache(s) Eyes Denies loss of vision ENT Denies vertigo, Denies dizziness, Denies headache(s) and Denies sore throat Card Denies chest pain, Denies leg edema and Denies lightheadedness Resp Denies cough, Denies hemoptysis and Denies wheezing GI Denies abdominal pain, Denies melena, Denies constipation, Denies diarrhea and Denies vomiting Denies urinary frequency, Denies dysuria and Denies urinary urgency Musc Denies arthralgias, Denies joint swelling, Denies numbness and Denies tingling Neuro Denies Abnormal speech present, Denies behavioral changes, Denies vertigo, Denies dizziness, Denies headache(s), Denies loss of vision, Denies memory loss, Denies numbness and Denies tingling Psych Denies anxiety, Denies behavioral changes, Denies depression, Denies memory loss and Denies panic attacks Willam/Lymph Denies easy bleeding and Denies easy bruising Aller/Immun Denies wheezing Physical exam (Primary Care) Vital Signs: Last Vital Signs Pulse 94 09/12/23 14:08 Resp 15 09/12/23 14:08 BP 120/84 09/12/23 14:08 Pulse Ox 95 09/12/23 14:08 Oxygen Delivery Method Room Air 10/18/23 14:08 BMI result Body Mass Index 21.0 Tobacco/Smoking Status: Tobacco use Status Tobacco use date assessed 06/13/23 09/12/23 14:09 Patient Tobacco Use Status Current everyday Tobacco 09/12/23 14:09 Tobacco use type Cigarette 09/12/23 14:09 e-Cigarette/Vaping Use Never Used 09/12/23 14:09 Are you ready to quit: Yes Tobacco cessation counseling provided: Yes Items discussed: Other Relapse Prevention: discussed negative mood or depression after quitting, weight gain after smoking is common and discussed dietary, exercise and/or lifestyle changes Number of minutes spent counselin CPT code: 88253 - 4-10 Minutes Thrive Assessment: Date of Thrive Assessment Date Thrive assessed 03/12/23 09/12/23 14:09 Const General: healthy appearing, no acute distress, alert and awake Nutritional Appearance: well nourished Orientation/consciousness: oriented to person, oriented to place and oriented to time HENMT Ears: TM's normal bilaterally General nose exam: Normal nasal mucous membranes and turbinates present Eyes Conjunctivae: conjunctivae normal Sclerae: sclerae normal Pupils: Equal, round and reactive pupils present Neck Neck: Yes no lymphadenopathy and Yes no JVD Thyroid: Thyroid normal Carotids: no bruits Resp Effort & Inspection: normal respiratory effort and not tachypneic Auscultation: no crackles, no rales, no rhonchi and no wheezes Cardio Rate: regular rate Rhythm: regular rhythm Heart sounds: no murmurs and normal S1 and S2 GI Palpation (GI): Soft to palpation, nontender, no hepatomegaly and no splenomegaly Auscultation: normal bowel sounds Skin General skin exam: no rashes or lesions noted and dry skin Neuro General: oriented to person, oriented to place and oriented to time Cranial nerves: Yes Equal, round and reactive pupils present Speech: No Abnormal speech present Gait exam (Neuro): Normal gait present Motor exam (neuro): no tremor noted Extrem Right upper extremity: full ROM Left upper extremity: full ROM Right lower extremity: full ROM; no edema Left lower extremity: full ROM; no edema Psych Mental Status: mental status grossly normal Speech and movement: Normal speech and movement present Affect: normal affect Attitude: cooperative Thought process: Normal thought process present Office Procedures Flu Questionnaire Does the patient have a severe egg allergy?: No Does the patient have severe life threatening allergies?: No Does the patient have a fever or illness today?: No Has the patient ever had Guillain-[place] Syndrome?: No Has the patient ever had any past reaction to a flu shot?: No Immunizations flu vacc [id number] 6mos up(PF) 60 mcg(15 mcgx4)/0.5 mL IM syringe Performing Provider: Nathaniel Basurto PA-C [facility] Administered by: TREY Burger on 09/12/23 14:13 Dose Route Admin Location Dispensed Lot Number Expiration Date [employer] Office Assistant 0.5 mL IM Left Deltoid 0.5 mL [id number] 05/25/24 46403-959-05 [email or web address] VIS Given Date VIS Provided VIS Publication Date 09/12/23 Single Vaccine 21 Eligibility Eligibility Date Funding Source Not [facility] Eligible 09/12/23 Private Assessment and Plan Assessment & Plan (1) RAMIRO (generalized anxiety disorder): Code(s): F41.1 - Generalized anxiety disorder Plan: Patient does seem to be suffering with the generalized anxiety disorder and panic disorder. Has been able to establish care with a mental health therapist and doing talk therapy. Will increase her SSRI therapy to Zoloft 100 mg for better control of her anxiety. Will supply patient with lorazepam to use on an emergency basis only for panic. (2) Tobacco dependence: Code(s): F17.200 - Nicotine dependence, unspecified, uncomplicated Plan: Patient does understand she needs to quit smoking and has nicotine supplementation available to her. She is now willing to try Chantix to help her quit smoking (3) Lumbar disc herniation with myelopathy: Code(s): M51.06 - Intervertebral disc disorders with myelopathy, lumbar region Plan: Patient continues to have signs symptoms own lumbar disc radiculopathy. Continues to have cramping and weakness in her lower extremities. MRI of lumbar spine in 2021 showing broad-based herniation at L5-S1. Will try for new MRI due to continued symptoms and 2nd opinion with [facility]. (4) Hemorrhoid: Code(s): K64.9 - Unspecified hemorrhoids Qualifiers: Hemorrhoid type: other Qualified Code(s): K64.8 - Other hemorrhoids Plan: Reports having symptomatic hemorrhoids as of late. Will check CBC and iron study. Will tried new laxative medication to help loosen stool temporarily. Advised on increasing her fluids and fiber in her diet. (5) Hot flashes: Code(s): R23.2 - [place] Plan: Has a history of partial hysterectomy. Most recent FSH had 75 which seems to be quite elevated. We discussed the possibility of her being perimenopause . She tried follow-up with her plastics tooling engineer specialist about basal motor symptoms. Unable to take oral control she is continuing to smoke. Orders: Orders Comprehensive [place]. Panel Fast 09/12/23 Z13.1 - Encounter for screening for diabetes mellitus IRON PROFILE 09/12/23 D50.9 - Iron deficiency anemia, unspecified, K62.5 - Hemorrhage of anus and rectum Influenza [id number] Immunization 09/12/23 Z23 - Encounter for immunization Complete Blood Count no Diff 09/12/23 K62.5 - Hemorrhage of anus and rectum Medications: New varenicline 0.5 mg PO; Take 0.5 mg qd x 3 days, then 0.5 mg b.i.d. x4 days 7 days 11 tabs 0RF F17.200 - Nicotine dependence, unspecified, uncomplicated lactulose 20 grams (30 mL) PO BID 15 days PRN 1,200 mL 1RF laxative effect K64.8 - Other hemorrhoids varenicline 1 mg PO BID 28 days 56 tabs 3RF F17.200 - Nicotine dependence, unspecified, uncomplicated Changed From lorazepam 0.5 mg PO DAILY 30 days PRN 7 tabs 0RF anxiety F41.1 - Generalized anxiety disorder To lorazepam 0.5 mg PO DAILY 30 days 14 tabs 2RF anxiety F41.1 - Generalized anxiety disorder From tramadol 50 mg PO BID 7 days PRN 14 tabs 0RF pain G95.9 - Disease of spinal cord, unspecified, G99.2 - Myelopathy in diseases classified elsewhere, M48.061 - Spinal stenosis, lumbar region without neurogenic claudication, M54.12 - Radiculopathy, cervical region To tramadol 50 mg PO BID 30 days 14 tabs 3RF pain G95.9 - Disease of spinal cord, unspecified, G99.2 - Myelopathy in diseases classified elsewhere, M48.061 - Spinal stenosis, lumbar region without neurogenic claudication, M54.12 - Radiculopathy, cervical region Refilled ibuprofen 800 mg PO TID PRN 90 tabs 3RF pain G99.2 - Myelopathy in diseases classified elsewhere, M48.061 - Spinal stenosis, lumbar region without neurogenic claudication sertraline (Zoloft) 100 mg PO DAILY 30 days 30 tabs 3RF F41.1 - Generalized anxiety disorder sennosides (Natural Senna Laxative) 8.6 mg PO DAILY 30 tabs 1RF prednisone 10 mg PO DAILY 5 days 5 tabs 0RF J45.20 - Mild intermittent asthma, uncomplicated permethrin 5% apply second treatment 14 days after first treatment if live lice remain 1 appl topical Q14D 60 grams 0RF B85.2 - Pediculosis, unspecified omeprazole 20 mg PO DAILY 90 caps 1RF K29.70 - Gastritis, unspecified, without bleeding clonidine HCl increase dose to 0.2 mg PRN 0.2 mg PO BID 30 days 60 tabs 3RF F41.1 - Generalized anxiety disorder albuterol sulfate 90 mcg/actuation 1 puff inhalation QID PRN 18 ea 1RF for wheezing J45.20 - Mild intermittent asthma, uncomplicated cyclobenzaprine 10 mg PO BEDTIME 30 days 30 tabs 1RF G99.2 - Myelopathy in diseases classified elsewhere, M48.061 - Spinal stenosis, lumbar region without neurogenic claudication lorazepam 0.5 mg PO DAILY 30 days PRN 7 tabs 0RF anxiety F41.1 - Generalized anxiety disorder ondansetron HCl 8 mg PO Q12H 10 days 20 tabs 0RF K29.70 - Gastritis, unspecified, without bleeding Coding Level of Care Code Est Pt Level 4 (58169) Diagnoses RAMIRO (generalized anxiety disorder) F41.1 Tobacco dependence F17.200 Lumbar disc herniation with myelopathy M51.06 Other hemorrhoids K64.8 Hemorrhoid type: other Hot flashes R23.2 Additional Codes Vital Signs *Quality* - CPT code: 33940 - 4-10 Minutes ([id number])
== END 2023-09-12 14:48 | disposition home or self-care (01) ==
PROVIDERS: PCP Physician Assistant; Visit Provider Physician Assistant
DX: Z23 Encounter for immunization (principal)
CPT/HCPCS: 90471; 90686; 99214; 99406

== ENCOUNTER 2023-12-11 14:31 | Outpatient (AMB) | payer MEDICARE, MEDICAID, SELFPAY ==
--- NOTE | 2023-12-11 14:23 | A.OFFPC_ITS ---
Intake Visit Reasons: Follow-up smoking cessation/ anxiety [phone] Geoscience Professor Required: No Accompanied by: Self / Same As Patient Allergies latex Allergy (Unknown, Verified 12/11/23 14:34) pruritis orange Allergy (Unknown, Verified 12/11/23 14:34) Pruritis Medication List - Last Reconciled 12/11/23 by Nathaniel Basurto PA-C albuterol sulfate 90 mcg/actuation 1 puff inhalation QID PRN amitriptyline 25 mg PO BEDTIME 30 days clonidine HCl 0.2 mg PO BID 30 days cyclobenzaprine 10 mg PO BEDTIME 30 days ibuprofen 800 mg PO TID PRN lactulose 20 grams (30 mL) PO BID PRN 15 days lorazepam 0.5 mg PO DAILY 30 days omeprazole 20 mg PO DAILY ondansetron HCl 8 mg PO Q12H 10 days permethrin 5% 1 appl topical Q14D 2 doses prednisone 10 mg PO DAILY 5 days sennosides (Natural Senna Laxative) 8.6 mg PO DAILY sertraline (Zoloft) 100 mg PO DAILY 30 days tramadol 50 mg PO BID 30 days varenicline 0.5 mg PO; Take 0.5 mg qd x 3 days, then 0.5 mg b.i.d. x4 days 7 days varenicline 1 mg PO BID 28 days Tobacco use date assessed: 12/11/23 Dental Screening Dental Screen Date: 12/11/23 Did you have a dental visit in the last 12 months?: Yes Did you have a dental problem in the last 6 months where you did not have access to dental care?: No Was dental information given to patient?: Patient has dentist HPI Follow-up smoking cessation/ anxiety [phone] HPI Details Patient is a 43-year-old female being evaluated today via telephone. Patient has a past medical history significant for tobacco use disorder, generalized anxiety disorder, chronic lumbar spine pain, migraines. Concern--> she reports her frequent episodes of hot flashes to the point that it could incapacitates her and needs to use a fan to help cool down.? She does report she physically has a tactile temperature during these attacks.? She reports these attacks happen 3 to 4 times a day She does report having partial hysterectomy though still remains her with her ovaries.? Unknown if she is perimenopausal. We have checked her FSH levels which was somewhat elevated at 75. She reports not having a periods or last 20 years ,has a partial hysterectomy. Advised to follow-up with her talent acquisition assistant to discuss possible vasomotor menopausal symptoms. Lumbar disc disease: She is followed by [facility] pain management has been getting injections which she reports is helping her pain. She does use tramadol on a p.r.n. basis. Generalized anxiety disorder: Continues to suffer with anxiety on nearly daily basis. She is now speaking with a mental health therapist. Continues on SSRI therapy with Zoloft 100 mg daily.. She does use clonidine and lorazepam on a p.r.n. basis for panic attacks. .. Tabacco use disorder:? unfortunately still smoking though has cut down some.? She continues to try to quit smoking. PLAN: She is willing to start Chantix again [facility] Medical History Hx of cervical cancer Surgical History History of esophagogastroduodenoscopy (EGD) H/O colonoscopy History of elbow surgery History of removal of cyst History of hysterectomy History of section Family History Father Diabetes PAD (peripheral artery disease) Hypertension Mother CAD (coronary artery disease) Emphysema lung Sister No problems noted. Brother No problems noted. 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 1. Little interest or pleasure in doing things: several days 2. Feeling down, depressed, or hopeless: several days 3. Trouble falling or staying asleep, or sleeping too much: nearly every day 4. Feeling tired or having little energy: several days 5. Poor appetite or overeating: several days 6. Feeling bad about yourself - or that you are a failure or have let yourself or your family down: not at all 7. Trouble concentrating on things, such as reading the newspaper or watching television: nearly every day 8. Moving or speaking so slowly that other people could have noticed. Or the opposite - being so fidgety or restless that you have been moving around a lot more than usual: several days 9. Thoughts that you would be better off or of hurting yourself in some way: not at all Total score: 11 Depression Screening Interpretation: Positive Depression Screening Follow-up: Existing condition and In treatment Depression Screening Done: Yes 60262 - PHQ-9 Billing: Yes Source: Developed by Drs. Milton Yu, Diamante Naik, Syd Wooten and colleagues, with an educational jeffrey from [employer]. Thrive Questionnaire Date Thrive assessed: 12/11/23 I am a: Patient What is your living situation today?: I have a steady place to live Within the past 12 months, did the food you bought not last and you didn't have the money to get more?: Never true Within the past 12 months, did you worry whether your food would run out before you got money to buy more?: Never true Do you have trouble paying for medicines?: No AUDIT C Alcohol Use Questionnaire (AUDIT-C) 1. How often do you have a drink containing alcohol?: Never 3. How often do you have six or more drinks on one occasion?: Never Total Score: 0 RAMIRO-7 AMB Questionnaire RAMIRO-7 Date RAMIRO - 7 assessed: 12/11/23 Feeling nervous, anxious, or on edge: 1 = Several days Not being able to stop or control worryin = Several days Worrying too much about different things: 1 = Several days Trouble relaxin = Nearly every day Being so restless that it is hard to sit still: 0 = Not at all Becoming easily annoyed or irritable: 1 = Several days Feeling afraid as if something awful might happen: 3 = Nearly every day Total RAMIRO-7 score (0-4 normal; 5-9 mild; 10-14 moderate; 15-21 severe): 10 Source: Developed by Drs. Milton Yu, Diamante Naik, Syd Wooten and colleagues, with an educational jeffrey from [employer]. RAMIRO-7 Assessment Billing RAMIRO-7 Assessment Tool: RAMIRO-7 Assessment 71015 Review of Systems Const Denies headache(s) Eyes Denies loss of vision ENT Denies vertigo, Denies dizziness, Denies headache(s) and Denies sore throat Card Denies chest pain, Denies leg edema and Denies lightheadedness Resp Denies cough, Denies hemoptysis and Denies wheezing GI Denies abdominal pain, Denies melena, Denies constipation, Denies diarrhea and Denies vomiting Denies urinary frequency, Denies dysuria and Denies urinary urgency Musc Denies arthralgias, Denies joint swelling, Denies numbness and Denies tingling Neuro Denies behavioral changes, Denies vertigo, Denies dizziness, Denies headache(s), Denies loss of vision, Denies memory loss, Denies numbness and Denies tingling Psych Denies anxiety, Denies behavioral changes, Denies depression, Denies memory loss and Denies panic attacks Willam/Lymph Denies easy bleeding and Denies easy bruising Aller/Immun Denies wheezing Physical exam (Primary Care) Tobacco/Smoking Status: Tobacco use Status Tobacco use date assessed 12/11/23 12/11/23 14:30 Patient Tobacco Use Status Current everyday Tobacco 12/11/23 14:30 Tobacco use type Cigarette 12/11/23 14:30 e-Cigarette/Vaping Use Never Used 12/11/23 14:30 Are you ready to quit: Yes Tobacco cessation counseling provided: Yes Items discussed: Nicotine replacement and QuitWorks Relapse Prevention: discussed the importance of a supportive environment, discussed negative mood or depression after quitting, weight gain after smoking is common and discussed dietary, exercise and/or lifestyle changes Number of minutes spent counselin CPT code: 81134 - 4-10 Minutes PHQ-9: PHQ-9 Score PHQ-9: Total score 11 12/11/23 14:30 Depression Screening Interpretation: Positive Depression Screening Follow-up: Existing condition and In treatment Thrive Assessment: Date of Thrive Assessment Date Thrive assessed 12/11/23 12/11/23 14:30 Telehealth Telehealth Location of provider rendering services: practice address Location of patient: other Patient Identification confirmed using: Name, : Yes Telehealth method: voice only Patient verbally consented to treatment: Yes Patient verbally consented to billing insurance company: Yes Patient informed of any privacy concerns related to visit: Yes Minutes spent on Phone/Video with Pt.: 11 Assessment and Plan Assessment & Plan (1) Smoker: Code(s): F17.200 - Nicotine dependence, unspecified, uncomplicated Plan: She does understand she needs to quit smoking. She is willing to try Chantix again. (2) RAMIRO (generalized anxiety disorder): Code(s): F41.1 - Generalized anxiety disorder Plan: Patient continues to suffer with anxiety. Does use SSRI therapy and p.r.n. use of lorazepam. She has not interested in mental health therapy at this time (3) Asthma: Code(s): J45.909 - Unspecified asthma, uncomplicated Qualifiers: Asthma severity: mild Asthma persistence: intermittent Asthma complication type: uncomplicated Qualified Code(s): J45.20 - Mild intermittent asthma, uncomplicated Plan: Her asthma has been fairly well controlled though still does smoke which causes her some shortness of breath at times. She does admit to using prednisone on a very limited basis that helps her breathing. She does have an albuterol inhaler that she uses on occasion as well. 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 Has been getting injections which have been helping reduce her pain. Again does use tramadol on a p.r.n. basis for both her migraines and her back pain. (5) Cervical myelopathy with cervical radiculopathy: Code(s): G95.9 - Disease of spinal cord, unspecified; M54.12 - Radiculopathy, cervical region Plan: Followed by [facility] pain management (6) Hot flashes: Code(s): R23.2 - [place] Plan: Continues to have intermittent episodes of hot flashes that she reports are unbearable. Hormonal testing shows an elevated FSH. Likely in premature menopause. She has upcoming appointment with her talent acquisition assistant and will discuss treatment options. Unfortunately a smoker thus estrogen products relatively contraindicated. (7) MDD (major depressive disorder), recurrent episode, moderate: Code(s): F33.1 - Major depressive disorder, recurrent, moderate Plan: Patient's PHQ-9 score positive for depression which has been existing condition for her. She continues on SSRI therapy. Orders: Orders Follicle Stimulating Hormone Today R23.2 - [place] Lutenizing Hormone Today R23.2 - [place] UA CC w/rflx Micro + Cult Today N39.0 - Urinary tract infection, site not specified, R30.0 - Dysuria Estrogen Today R23.2 - [place] Medications: Changed From sertraline (Zoloft) 100 mg PO DAILY PRN F41.1 - Generalized anxiety disorder To sertraline (Zoloft) 100 mg PO DAILY 30 days 30 tabs 3RF F41.1 - Generalized anxiety disorder Refilled ondansetron HCl 8 mg PO Q12H 10 days 20 tabs 0RF K29.70 - Gastritis, unspecified, without bleeding tramadol 50 mg PO BID 30 days 14 tabs 3RF pain G95.9 - Disease of spinal cord, unspecified, G99.2 - Myelopathy in diseases classified elsewhere, M48.061 - Spinal stenosis, lumbar region without neurogenic claudication, M54.12 - Radiculopathy, cervical region varenicline 0.5 mg PO; Take 0.5 mg qd x 3 days, then 0.5 mg b.i.d. x4 days 7 days 11 tabs 0RF F17.200 - Nicotine dependence, unspecified, uncomplicated varenicline 1 mg PO BID 28 days 56 tabs 3RF F17.200 - Nicotine dependence, unspecified, uncomplicated ibuprofen 800 mg PO TID PRN 90 tabs 3RF pain G99.2 - Myelopathy in diseases classified elsewhere, M48.061 - Spinal stenosis, lumbar region without neurogenic claudication amitriptyline 25 mg PO BEDTIME 30 days 30 tabs 0RF G43.709 - Chronic migraine without aura, not intractable, without status migrainosus albuterol sulfate 90 mcg/actuation 1 puff inhalation QID PRN 18 ea 1RF for wheezing J45.20 - Mild intermittent asthma, uncomplicated prednisone 10 mg PO DAILY 5 days 5 tabs 0RF J45.20 - Mild intermittent asthma, uncomplicated lorazepam 0.5 mg PO DAILY 30 days 14 tabs 2RF anxiety F41.1 - Generalized anxiety disorder Coding Level of Care Code Tele Est Pt Level 4 (66479) Diagnoses Smoker F17.200 RAMIRO (generalized anxiety disorder) F41.1 Mild intermittent asthma without complication J45.20 Asthma severity: mild Asthma persistence: intermittent Asthma complication type: uncomplicated 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
--- OUTSIDE RECORDS SUMMARY | 2023-12-11 14:32 | XMS_ITS | Continuity of Care Document ---
Author Name Unknown Organization [facility] Address [address] [place] [address]- Care Team Providers Care Bathhouse Attendant Name Role Phone [facility] Mark JONES Primary Care Physician [phone] [facility] ACCT R [id number] Date(s): 06/06/23 - 07/06/23 [facility] [address] [place] [id number]- Attending Physician: Ely Ricks Admitting Physician: Ely Ricks Referring Physician: Ely Ricks Allergies, Adverse Reactions, Alerts Substance Reaction Severity Status Latex C/O: itching Active Other Food Allergy oranges cause hives Ac tive Immunizations Given and Recorded Vaccine Date Status Refusal Reason tetanus/diphtheria/pertussis, acel(Tdap) 08/12/16 Given Boostrix (Tdap) (oldterm) 1 11/19/10 Given 1Admin Note: pt given tdap information sheet Medications Ativan 1 mg oral tablet 1 tablet = 1 mg, By Mouth, 2 times a day, PRN as needed for anxiety, # 10 tablet, 0 Refills, Maintenance, 03/29/23 23:12:00 EDT, [facility]/pharmacy #[id number], Partial fill upon patient request if the prescription is for a schedule II opioid drug. Start Date: 03/29/23 Stop Date: 04/05/23 Status: Ordered ibuprofen 600 mg oral tablet 600 mg, 1, tablet, By Mouth, 4 times a day, PRN, # 40 tablet, Refills 0, Tot. Refills 0, Maintenance, Pain, 09/08/19 8:03:48 EDT, Print Requisition Start Date: 09/08/19 Status: Ordered LORazepam 1 mg oral tablet 1 tablet = 1 mg, By Mouth, 3 times a day, PRN as needed for anxiety, 0 Refills, Maintenance, 07/20/18 20:03:03 EDT Start Date: 07/20/18 Status: Ordered oxycodone 5 mg oral capsule 1 capsule = 5 mg, By Mouth, Every 6 hours, PRN Pain, # 12 capsule, 0 Refills Start Date: 07/19/09 Stop Date: 07/26/09 Status: Ordered tramadol 50 mg oral tablet 50, mg, 1, tablet, By Mouth, Every 12 hours, 60, 0, 0, 08/10/08 16:23:05, Print CLARISSA Number, 103, Constant Indicator Start Date: 08/10/08 Status: Ordered Problem List Condition Confirmation Course Effective Dates Status Health St atus Informant 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 Social History Social History Type Response Smoking Status 10 or more cigarette s (1/2 pack or more)/day in last 30 days entered on: 03/29/23 Sex Patient Care team information Care Team Personnel Name: Mark Nichols MD Position: S Physician - Primary Care Member Role: PCP Address: Address: [address] [place] [address] [address] [place] [address] [place] [address]- Care Team Related Persons Name: ALDEN TAM Address: home [address] [place] [address] Name: LOGAN TAM Address: [address] [place] [address] Name: SHAN GERAMN Address: home [address] [place] [address] Name: MIO BELCHER Address: home [address] [place] [address]
== END 2023-12-11 15:13 | disposition home or self-care (01) ==
LOC: HO.HMGH 14:31
PROVIDERS: PCP Physician Assistant; Visit Provider Physician Assistant
DX: J45.20 Mild intermittent asthma, uncomplicated (principal); F17.210 Nicotine dependence, cigarettes, uncomplicated; M48.061 Spinal stenosis, lumbar region without neurogenic claudication; G99.2 Myelopathy in diseases classified elsewhere; G95.9 Disease of spinal cord, unspecified; M54.12 Radiculopathy, cervical region; R23.2 Flushing
CPT/HCPCS: 99406; 99442

== ENCOUNTER 2023-12-17 13:03 | Outpatient (REF) | payer MEDICARE, MEDICAID, SELFPAY ==
[2023-12-17 15:35] LABS: Appearance Urine Turbid; Color Urine Yellow; Glucose Urine UA Negative (Negative); Leukocyte Esterase Urine Negative (Negative); Nitrite Urine Negative (Negative); Urine Blood Negative (Negative); Urine Ketones Negative (Negative); Urine Protein Negative (Neg-Trace)
[2023-12-18 09:48] LABS: Follicle Stimulating Hormone 80.4 mIU/mL; Lutenizing Hormone 28.7 mIU/mL
[2023-12-22 17:49] LABS: Estrogen <25 pg/mL
== END 2023-12-17 13:04 | disposition home or self-care (01) ==
LOC: HO.LAB 13:03
PROVIDERS: PCP Physician Assistant; Visit Provider Physician Assistant
DX: R30.0 Dysuria (principal); N39.0 Urinary tract infection, site not specified; R23.2 Flushing
CPT/HCPCS: 36415; 81003; 82672; 83001; 83002

== ENCOUNTER → 2023-12-31 11:45 | Outpatient (BNV) | payer MEDICARE, MEDICAID, SELFPAY | PROVIDERS: PCP Physician Assistant; Visit Provider Radiology Diagnostic Radiology | DX: Z12.31 Encounter for screening mammogram for malignant neoplasm of breast (principal) | CPT/HCPCS: 77063; 77067 ==

== ENCOUNTER 2023-12-31 12:00 | Outpatient (REF) | payer MEDICARE, MEDICAID, SELFPAY | END 2023-12-31 12:01 | disposition home or self-care (01) | LOC: HO.MAMMO 12:00 | PROVIDERS: PCP Physician Assistant; Visit Provider Physician Assistant | DX: Z12.31 Encounter for screening mammogram for malignant neoplasm of breast (principal) | CPT/HCPCS: 77063; 77067 ==

== ENCOUNTER 2024-01-01 13:32 | Outpatient (REF) | payer MEDICARE, MEDICAID, SELFPAY ==
[2024-01-07 20:09] LABS: HPV mRNA E6/E7 rflx Not Detected (Not Detected)
== END 2024-01-01 13:33 | disposition home or self-care (01) ==
LOC: HO.LNP 13:32
PROVIDERS: PCP Physician Assistant; Visit Provider Advanced Practice Midwife
DX: Z01.419 Encounter for gynecological examination (general) (routine) without abnormal findings (principal); Z11.51 Encounter for screening for human papillomavirus (HPV); Z85.41 Personal history of malignant neoplasm of cervix uteri
CPT/HCPCS: 87624; 88142; G0101

== ENCOUNTER 2024-01-01 13:32 | Outpatient (AMB) | payer MEDICARE, MEDICAID, SELFPAY ==
--- NOTE | 2024-01-01 13:44 | MHC.OFFVIS ---
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 Doing well with concerns: daily hot flashes. bothering her sleep. Labs evaluated by her PCP. She tries to eat healthy, skips meals, eat late. Currently is sexually active, same partner x 3yrs. She denies vaginal itching and irritation. Denies family history of breast, ovarian or colon cancer. Last pap smear: 2018, negative. Mammogram: Up-to-date, not read. Smoker, has a prescription for Chantix but did not started due to her increased stress levels last month with of family member. She also reports an episode of pain in the chest to the shoulder going down her arm with numbness, she has not been seen for those symptoms. [facility] Medical History MDD (major depressive disorder), recurrent episode, moderate Lumbar disc herniation with myelopathy Asthma Chronic migraine Hx of cervical cancer Surgical History History of esophagogastroduodenoscopy (EGD) H/O colonoscopy History of elbow surgery History of removal of cyst History of hysterectomy History of section Family History Father Diabetes PAD (peripheral artery disease) Hypertension Mother CAD (coronary artery disease) Emphysema lung Sister No problems noted. Brother No problems noted. 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 Cognitive needs: No Hearing needs: No Vision needs: No Female Reproductive History Menstrual Age of Menarche: 11 Menopause type: surgical Date of last pap smear: 12/07/22 (neg pap and hpv) History of abnormal pap smear: Yes Date of Mammogram: 12/31/23 Review of Systems Const All systems reviewed & are unremarkable except as noted in HPI and below Reports as per HPI Eyes Reports no additional complaints ENT Reports no additional complaints Card Reports no additional complaints Resp Reports no additional complaints GI Reports as per HPI and Reports no additional complaints Reports as per HPI Musc Reports no additional complaints Skin/Breast Reports as per HPI Neuro Reports no additional complaints Psych Reports no additional complaints Endo Reports no additional complaints Willam/Lymph Reports no additional complaints Aller/Immun Reports no additional complaints Physical Exam Vital Signs: Last Vital Signs BP 112/70 01/01/24 13:56 BMI result Body Mass Index 21.8 Const General: cooperative, healthy appearing, no acute distress, well developed and alert Orientation/consciousness: patient oriented x3 HEENT Head: Yes normal to inspection Eyes General: appearance normal, both eyes and all related structures Neck Neck: Yes normal visual inspection Thyroid: Thyroid normal Chest Chest palpation & inspection: normal inspection of the chest and other (no puckering, dimpling, peau de orange, retraction, discharge, masses) Breast/axilla inspection: normal inspection of the breasts Breast/axilla palpation: normal palpation of the breasts Resp Effort & Inspection: normal respiratory effort GI Inspection: Yes normal to inspection Palpation (GI): Soft to palpation Rectal Exam - Female: deferred General: Yes bladder normal to palpation External Female Exam: normal external appearance and normal appearance of the urethra Speculum Exam - Vagina: normal appearance of the vagina, normal palpation and normal vaginal discharge Speculum Exam - Cervix: normal appearance of the cervix and normal palpation Bimanual exam- vagina & uterus: normal bimanual exam, normal palpation, uterine size normal, bladder normal to palpation, normal palpation and non-tender Bimanual Exam- Adnexa, other: no masses Skin General skin exam: no rashes or lesions noted Rashes: no rashes Neuro General: patient oriented x3 Cognition (Neuro): normal cognition Extrem General: Yes normal to inspection Psych Attitude: cooperative Thought process: Normal thought process present Assessment & Plan Assessment & Plan (1) Encounter for well woman exam with routine gynecological exam: Code(s): Z01.419 - Encounter for gynecological examination (general) (routine) without abnormal findings (2) History of cervical cancer: Code(s): Z85.41 - Personal history of malignant neoplasm of cervix uteri Plan Discussed: Current recommendations for pap smears per ASCCP guidelines. Breast awareness and periodic breast exams. Maintain a healthy lifestyle including a well balanced diet and routine exercise. Use condoms for STI and prevention. Mammogram yearly. Colonoscopy >45, or at risk sooner. Strongly recommended to quit smoking and to use other alternative to help her with stress reduction Counseled on treatment options for her hot flashes to include hormone replacement therapy, risks reviewed including for deep vein thrombosis or pulmonary embolus and slight risk for breast cancer. She has not comfortable with the risks of these discussed. I encouraged her to think seriously about stopping smoking to decrease her risk. Also [id number] and self-help measures when she is having hot flashes including cooling fabric, laying ring clothing, fan including a neck fan, hydrating well Advised to speak with her primary care about her recent numbness and pain going down her shoulder left arm and feeling discomforts on the left side of her chest, she is agreeable to do that radha. Patient verbalizes understanding and agrees to the plan of care. She was given opportunity to ask questions and all questions were answered to the best of my ability. RTO in one year for annual corporate fitness program coordinator examination. This note is constructed using voice recognition software. While every effort has been made to ensure accuracy, automobile service advisor errors may have been included. Orders: Orders Pap Smear Today Z01.419 - Encounter for gynecological examination (general) (routine) without abnormal findings, Z85.41 - Personal history of malignant neoplasm of cervix uteri Coding Level of Care Code Est Pt Prev Care 40-64y(57602) Diagnoses Encounter for well woman exam with routine gynecological exam Z01.419 History of cervical cancer Z85.41
[2024-01-01 13:56] VITALS: BP 112/70; BMI 21.8
== END 2024-01-01 14:57 | disposition home or self-care (01) ==
PROVIDERS: PCP Physician Assistant; Visit Provider Advanced Practice Midwife
DX: Z01.419 Encounter for gynecological examination (general) (routine) without abnormal findings (principal); Z85.41 Personal history of malignant neoplasm of cervix uteri
CPT/HCPCS: G0101; Q0091

== ENCOUNTER 2024-03-13 14:08 | Outpatient (AMB) | payer MEDICARE, MEDICAID, SELFPAY ==
[2024-03-13 14:40] VITALS: BP 116/80; PULSE 60; O2SAT 100; BMI 22.2
--- NOTE | 2024-03-13 14:40 | MHC.PC.OV ---
Vital Signs 03/13/24 14:40 Height 5 ft 7 in Weight 141 lb 8 oz BMI 22.2 BP 116/80 Blood Pressure Location Lt brachial Position Sitting Pulse 60 Pulse Source Pulse Oximeter Pulse Oximetry (%) 100 Oxygen Delivery Method Room Air Intake Visit Reasons: pe Intake Note: Patient is here today for a physical. 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: No Accompanied by: Self / Same As Patient Allergies latex Allergy (Unknown, Verified 03/13/24 14:56) pruritis orange Allergy (Unknown, Verified 03/13/24 14:56) Pruritis Medication List - Last Reconciled 03/13/24 by Nathaniel Basurto PA-C albuterol sulfate 90 mcg/actuation 1 puff inhalation QID PRN amitriptyline 25 mg PO BEDTIME 30 days clonidine HCl 0.2 mg PO BID 30 days cyclobenzaprine 10 mg PO BEDTIME 30 days ibuprofen 800 mg PO TID PRN lactulose 20 grams (30 mL) PO BID PRN 15 days lorazepam 0.5 mg PO DAILY 30 days omeprazole 20 mg PO DAILY ondansetron HCl 8 mg PO Q12H 10 days permethrin 5% 1 appl topical Q14D 2 doses prednisone 10 mg PO DAILY 5 days sennosides (Natural Senna Laxative) 8.6 mg PO DAILY sertraline (Zoloft) 100 mg PO DAILY 30 days tramadol 50 mg PO BID 30 days varenicline 0.5 mg PO; Take 0.5 mg qd x 3 days, then 0.5 mg b.i.d. x4 days 7 days varenicline 1 mg PO BID 28 days Tobacco use date assessed: 12/11/23 Dental Screening Dental Screen Date: 12/11/23 HPI pe HPI Details Patient is a 44-year-old female here today for routine annual physical. Patient has a past medical history significant for tobacco use disorder, generalized anxiety disorder, chronic lumbar spine pain, migraines.. Hot flashes: Has been experiencing episodes of hot flashes that have gradually gotten better over the last few weeks.. Has elevated FSH, likely in menopause. Has not had a menstrual period in quite some time. Did have a partial hysterectomy years ago. She has followed up with senior lead java developer specialty though no recommendations on starting hormonal therapy due to her smoking Lumbar disc disease: She is followed by [facility] pain management has been getting injections which she reports is helping her pain. She does use tramadol on a p.r.n. basis. Generalized anxiety disorder: Continues to suffer with anxiety on nearly daily basis. She is now speaking with a mental health therapist. Continues on SSRI therapy with Zoloft 100 mg daily.. She does use clonidine and lorazepam on a p.r.n. basis for panic attacks. .. Tabacco use disorder:? unfortunately still smoking though has cut down some.? She continues to try to quit smoking. Has tried Chantix though has not been effective. Vaccine : UTD with all vaccine. Colon cancer screening: Has had colonoscopies in the past [facility] Medical History MDD (major depressive disorder), recurrent episode, moderate Lumbar disc herniation with myelopathy Asthma Chronic migraine Hx of cervical cancer Surgical History History of esophagogastroduodenoscopy (EGD) H/O colonoscopy History of elbow surgery History of removal of cyst History of hysterectomy History of section Family History Father Diabetes PAD (peripheral artery disease) Hypertension Mother CAD (coronary artery disease) Emphysema lung Sister No problems noted. Brother No problems noted. 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 Milton Yu, Diamante Naik, Syd Wooten and colleagues, with an educational jeffrey from [employer]. Review of Systems Const Denies body aches, Denies chills, Denies excessive sweating, Denies fatigue, Denies fever(s) and Denies headache(s) Eyes Denies blurry vision ENT Denies dysphagia, Denies vertigo, Denies dizziness, Denies headache(s), Denies hearing loss and Denies tinnitus Card Denies chest pain, Denies chest pain with activity, Denies syncope, Denies irregular heart rhythm and Denies dyspnea Resp Denies chest congestion, Denies cough, Denies hemoptysis, Denies dyspnea and Denies wheezing GI Denies abdominal pain, Denies melena, Denies hematochezia, Denies coffee ground emesis, Denies dysphagia, Denies diarrhea, Denies nausea and Denies vomiting Denies urinary frequency, Denies dysuria, Denies urinary hesitancy and Denies urinary urgency Musc Denies arthralgias, Denies limited range of motion, Denies muscle cramps and Denies muscle weakness Skin/Breast Denies rash and Denies skin ulcer Neuro Denies Abnormal speech present, Denies confusion, Denies vertigo, Denies dizziness, Denies syncope, Denies headache(s), Denies memory loss and Denies seizure-like activity Psych Denies anxiety, Denies confusion, Denies depression, Denies memory loss, Denies panic attacks and Denies paranoia Endo Denies excessive sweating, Denies fatigue, Denies flushing, Denies polydipsia and Denies polyuria Aller/Immun Denies wheezing Physical exam (Primary Care) Vital Signs: Last Vital Signs Pulse 60 03/13/24 14:40 BP 116/80 03/13/24 14:40 Pulse Ox 100 03/13/24 14:40 Oxygen Delivery Method Room Air 03/13/24 14:40 BMI result Body Mass Index 22.2 Tobacco/Smoking Status: Tobacco use Status Tobacco use date assessed 12/11/23 03/13/24 14:46 Patient Tobacco Use Status Current everyday Tobacco 03/13/24 14:46 Tobacco use type Cigarette 03/13/24 14:46 e-Cigarette/Vaping Use Never Used 03/13/24 14:46 Are you ready to quit: No Tobacco cessation counseling provided: Yes Items discussed: Nicotine replacement and QuitWorks Relapse Prevention: discussed the importance of a supportive environment, discussed negative mood or depression after quitting, weight gain after smoking is common and discussed dietary, exercise and/or lifestyle changes Number of minutes spent counselin CPT code: 05532 - 4-10 Minutes Thrive Assessment: Date of Thrive Assessment Date Thrive assessed 12/11/23 03/13/24 14:46 Const General: cooperative, comfortable, no acute distress, alert and awake; No confusion Orientation/consciousness: oriented to person, oriented to place, patient oriented x3 and No confusion HENMT Head: Yes normocephalic Ears: external ears normal and TM's normal bilaterally Face and sinus: No sinus tenderness Mouth: Normal oral and palatal mucosa present and tongue normal Teeth and gingiva: dentition normal and gingiva normal Throat: Yes posterior oropharynx normal, Yes tonsils normal and Yes uvula midline Eyes Conjunctivae: conjunctivae normal Sclerae: sclerae normal Pupils: Equal, round and reactive pupils present EOM: EOMs intact bilaterally Direct Ophthalmoscopy: No no photophobia Neck Neck: Yes no lymphadenopathy, No tender and Yes no JVD Thyroid: Thyroid normal Carotids: no bruits Chest Chest palpation & inspection: no tenderness Resp Effort & Inspection: normal respiratory effort, no audible wheezes, not labored and no stridor Auscultation: no crackles, no rales, no rhonchi and no wheezes Cardio Jugular venous distension: no JVD Rate: regular rate, not bradycardic and not tachycardic Rhythm: regular rhythm Bruits: no carotid bruits Peripheral pulses: Peripheral pulses 2+ throughout GI Inspection: Yes normal to inspection, No abdominal wall ecchymosis and No visible herniation Palpation (GI): Soft to palpation, nontender, no guarding, not rigid and No hepatosplenomegaly present Auscultation: normoactive bowel sounds General: Yes no CVA tenderness Back/Spine/Pelvis Back: no CVA tenderness and No back tenderness Cervical Spine: cervical ROM normal Thoracic/Lumbar Spine: thoracic and lumbar spine normal to inspection, straight leg raise negative bilaterally, No thoraco-lumbar ROM limited and No lumbar spinal tenderness Skin Lesions: no lesions Rashes: no rashes Wounds: no wounds Neuro General: oriented to person, oriented to place, patient oriented x3, CN's II-XI intact bilaterally and No confusion Cranial nerves: Yes Equal, round and reactive pupils present and Yes Normal accommodation reflex present Cognition (Neuro): normal cognition Speech: No Abnormal speech present Gait exam (Neuro): Normal gait present Motor exam (neuro): 5/5 motor strength present throughout Extrem Right upper extremity: full ROM; no cyanosis Left upper extremity: full ROM; no cyanosis Right lower extremity: no edema Left lower extremity: no edema Psych Appearance: grossly normal Mental Status: mental status grossly normal Affect: normal affect Attitude: cooperative Thought process: Normal thought process present Results Reviewed Results Reviewed: Laboratory Last Values Urine pH (Auto) 7.0 03/13/24 12:43 Specific [place] (Auto) 1.015 03/13/24 12:43 Urine Protein (Auto) 0 mg/dL 03/13/24 12:43 Glucose (UA)(Auto) 0 mg/dL 03/13/24 12:43 Urine Ketones (Auto) Negative 03/13/24 12:43 Urine Blood (Auto) 0 Luis/uL 03/13/24 12:43 Urine Nitrite (Auto) Negative 03/13/24 12:43 Urine Bilirubin (Auto) 0 mg/dL 03/13/24 12:43 Urine Urobilinogen (Auto) 0 mg/dL 03/13/24 12:43 Leukocyte Esterase (Auto) 0 Susanna/uL 03/13/24 12:43 Assessment and Plan Assessment & Plan (1) Annual physical exam: Code(s): Z00.00 - Encounter for general adult medical examination without abnormal findings (2) Smoker: Code(s): F17.200 - Nicotine dependence, unspecified, uncomplicated Plan: She does understand she needs to quit smoking. She has tried Chantix though has not been effective. She is willing to try nicotine patches again. (3) RAMIRO (generalized anxiety disorder): Code(s): F41.1 - Generalized anxiety disorder Plan: Patient continues to suffer with anxiety. Does use SSRI therapy and p.r.n. use of lorazepam. She has not interested in mental health therapy at this time (4) Asthma: Code(s): J45.909 - Unspecified asthma, uncomplicated Qualifiers: Asthma complication type: uncomplicated Asthma persistence: intermittent Asthma severity: mild Qualified Code(s): J45.20 - Mild intermittent asthma, uncomplicated Plan: Her asthma has been fairly well controlled though still does smoke which causes her some shortness of breath at times. She does admit to using prednisone on a very limited basis that helps her breathing. She does have an albuterol inhaler that she uses on occasion as well. (5) Cervical myelopathy with cervical radiculopathy: Code(s): G95.9 - Disease of spinal cord, unspecified; M54.12 - Radiculopathy, cervical region Plan: Followed by [facility] pain management (6) Hot flashes: Code(s): R23.2 - Flushing Plan: Continues to have intermittent episodes of hot flashes that she reports are unbearable. Hormonal testing shows an elevated FSH. Likely in menopause. She has upcoming appointment with her senior lead java developer and will discuss treatment options. Unfortunately a smoker thus estrogen products are contraindicated. (7) MDD (major depressive disorder), recurrent episode, moderate: Code(s): F33.1 - Major depressive disorder, recurrent, moderate Plan: She continues on SSRI therapy with good effect on both her depression and anxiety.. (8) Flank pain: Code(s): R10.9 - Unspecified abdominal pain Plan: Urine in office today without any evidence UTI. Will send for urine culture. Orders: Orders Comprehensive [place]. Panel Fast 03/13/24 Z13.1 - Encounter for screening for diabetes mellitus AMB Urinalysis Automated 03/13/24 M54.9 - Dorsalgia, unspecified Complete Blood Count no Diff 03/13/24 K21.9 - Gastro-esophageal reflux disease without esophagitis UA CC w/rflx Micro + Cult 03/13/24 R10.9 - Unspecified abdominal pain, R30.0 - Dysuria Urine Culture 03/13/24 R10.9 - Unspecified abdominal pain Medications: New nicotine 1 patch transdermal DAILY 14 ea 1RF 14 days F17.200 - Nicotine dependence, unspecified, uncomplicated nicotine 1 patch transdermal Q24H 14 ea 0RF 14 days F17.200 - Nicotine dependence, unspecified, uncomplicated Refilled lorazepam 0.5 mg PO DAILY 14 tabs 3RF anxiety 30 days F41.1 - Generalized anxiety disorder sertraline (Zoloft) 100 mg PO DAILY 30 tabs 3RF 30 days F41.1 - Generalized anxiety disorder tramadol 50 mg PO BID 14 tabs 3RF pain 30 days G95.9 - Disease of spinal cord, unspecified, G99.2 - Myelopathy in diseases classified elsewhere, M48.061 - Spinal stenosis, lumbar region without neurogenic claudication, M54.12 - Radiculopathy, cervical region ibuprofen 800 mg PO TID PRN 90 tabs 3RF pain G99.2 - Myelopathy in diseases classified elsewhere, M48.061 - Spinal stenosis, lumbar region without neurogenic claudication ondansetron HCl 8 mg PO Q12H 20 tabs 3RF 10 days K29.70 - Gastritis, unspecified, without bleeding prednisone 10 mg PO DAILY 5 tabs 0RF 5 days J45.20 - Mild intermittent asthma, uncomplicated Discontinued permethrin 5% apply second treatment 14 days after first treatment if live lice remain Discontinued Reason: Doctor's Order 1 appl topical Q14D 60 grams 0RF B85.2 - Pediculosis, unspecified varenicline Discontinued Reason: Duplicate 0.5 mg PO; Take 0.5 mg qd x 3 days, then 0.5 mg b.i.d. x4 days 7 days 11 tabs 0RF F17.200 - Nicotine dependence, unspecified, uncomplicated varenicline Discontinued Reason: Doctor's Order 1 mg PO BID 28 days 56 tabs 3RF F17.200 - Nicotine dependence, unspecified, uncomplicated Coding Level of Care Code Est Pt Prev Care 40-64y(71303) Diagnoses Annual physical exam Z00.00 Smoker F17.200 RAMIRO (generalized anxiety disorder) F41.1 Mild intermittent asthma without complication J45.20 Asthma complication type: uncomplicated Asthma persistence: intermittent Asthma severity: mild Cervical myelopathy with cervical radiculopathy G95.9; M54.12 Hot flashes R23.2 MDD (major depressive disorder), recurrent episode, moderate F33.1 Flank pain R10.9 Additional Codes Vital Signs *Quality* - CPT code: 56479 - 4-10 Minutes ([id number])
== END 2024-03-13 15:25 | disposition home or self-care (01) ==
PROVIDERS: PCP Physician Assistant; Visit Provider Physician Assistant
DX: Z00.00 Encounter for general adult medical examination without abnormal findings (principal); F17.210 Nicotine dependence, cigarettes, uncomplicated; G95.9 Disease of spinal cord, unspecified; F33.1 Major depressive disorder, recurrent, moderate; F41.1 Generalized anxiety disorder; J45.20 Mild intermittent asthma, uncomplicated; M54.12 Radiculopathy, cervical region; R23.2 Flushing; R10.9 Unspecified abdominal pain
CPT/HCPCS: 81003; 99396

== ENCOUNTER 2024-06-05 12:44 | Outpatient (REF) | payer MEDICARE, MEDICAID, SELFPAY ==
--- NOTE | ~2024-06-05 | XR_ITS ---
EXAMINATION: XR CERVICAL SPINE CLINICAL INFORMATION: Neck pain COMPARISON: 01/06/2022 TECHNIQUE: 3 views of the cervical spine were obtained. FINDINGS: Overlying wavy opacities are characteristic of overlying fabric or hair. Straightening of the normal cervical lordosis. Cervical disc space heights are preserved. Mild multilevel cervical spondylosis. XR/XR cervical spine 3V IMPRESSION: Mild multilevel cervical spondylosis. This study was presented today June 25, 2024 for interpretation. Stat results provided at this time as requested by referring provider.
[2024-06-05 13:27] LABS: Hematocrit 41.9 % (37.0-47.0); Hemoglobin 13.6 g/dl (12.0-16.0); Mean Corpuscular HGB Conc 32.5 g/dl (31.0-35.0); Mean Corpuscular Hemoglobin 27.5 pg (27.0-33.0); Mean Corpuscular Volume 84.8 fL (80.0-98.0); Mean Platelet Volume 9.7 fL (9.4-12.3); Platelet Count 279 X10*3/uL (160-400); Red Blood Count 4.94 X10*6/uL (4.20-5.50); Red Cell Distribution Width 13.8 % (11.0-16.0); White Blood Count 5.7 X10*3/uL (4.8-10.8)
[2024-06-05 14:35] LABS: Appearance Urine Turbid; Color Urine Yellow; Glucose Urine UA Negative (Negative); Leukocyte Esterase Urine Negative (Negative); Nitrite Urine Negative (Negative); PH 8.5 (5.0-9.0); Specific Gravity - Urine 1.015 (1.005-1.025); Urine Blood Negative (Negative); Urine Ketones Negative (Negative); Urine Protein Negative (Neg-Trace)
[2024-06-05 14:39] LABS: Alanine Aminotransferase 8 U/L (0-31); Alkaline Phosphatase 55 U/L (39-117); Anion Gap 12 (12-20); Aspartate Amino Transferase 12 U/L (5-31); Bilirubin Total 0.3 mg/dL (0.0-1.0); Blood Urea Nitrogen 7 mg/dL (9-16); Calcium 9.1 mg/dL (8.4-10.2); Carbon Dioxide 26 mmol/L (22-29); Chloride 108 mmol/L (96-108); Estimated Glomerular Filt Rate > 60; Glucose Fasting 109 mg/dL (60-99); Iron 76 mcg/dL (30-160); Percent Iron Saturation 29 % (15-50); Potassium 4.3 mmol/L (3.3-5.1); Sodium 142 mmol/L (135-145); Total Iron Binding Capacity 262 mcg/dL (228-428); Total Protein 6.4 g/dL (6.5-8.0); Unsaturated Iron Binding 186 ug/dL
== END 2024-06-05 12:45 | disposition home or self-care (01) ==
LOC: HO.XRAY 12:44
PROVIDERS: Absent Provider Physician Assistant; PCP Physician Assistant; Visit Provider Internal Medicine
DX: D50.9 Iron deficiency anemia, unspecified (principal); K62.5 Hemorrhage of anus and rectum; M54.2 Cervicalgia; R30.0 Dysuria; R10.9 Unspecified abdominal pain; K21.9 Gastro-esophageal reflux disease without esophagitis; Z13.1 Encounter for screening for diabetes mellitus
CPT/HCPCS: 36415; 72040; 80053; 81003; 83540; 85027; 87086

== ENCOUNTER 2024-06-17 10:33 | Outpatient (AMB) | payer MEDICARE, MEDICAID, SELFPAY ==
[2024-06-17 10:41] VITALS: BP 132/90; PULSE 86; BMI 21.1
--- NOTE | 2024-06-17 10:41 | A.OFFPC_ITS ---
Vital Signs 06/17/24 10:41 Height 5 ft 7 in Weight 134 lb 8 oz BMI 21.1 BP 132/90 H Blood Pressure Location Lt brachial Position Sitting Pulse 86 Pulse Source Palpation Intake Visit Reasons: f/u smoking cessation Intake Note: The patient has been experiencing pain on the right side of the neck, which has been causing headaches for the past month. Glass Sagger Required: No Accompanied by: Self / Same As Patient Allergies latex Allergy (Unknown, Verified 06/17/24 10:43) pruritis orange Allergy (Unknown, Verified 06/17/24 10:43) Pruritis Medication List - Last Reconciled 06/17/24 by Nathaniel Basurto PA-C albuterol sulfate 90 mcg/actuation 1 puff inhalation QID PRN amitriptyline 25 mg PO BEDTIME 30 days clonidine HCl 0.2 mg PO BID 30 days cyclobenzaprine 10 mg PO BEDTIME 30 days ibuprofen 800 mg PO TID PRN lactulose 20 grams (30 mL) PO BID PRN 15 days lorazepam 0.5 mg PO DAILY 30 days nicotine 1 patch transdermal DAILY 14 days nicotine 1 patch transdermal Q24H 14 days omeprazole 20 mg PO DAILY ondansetron HCl 8 mg PO Q12H 10 days prednisone 10 mg PO DAILY 5 days sennosides (Natural Senna Laxative) 8.6 mg PO DAILY sertraline (Zoloft) 100 mg PO DAILY 30 days tramadol 50 mg PO BID 30 days Tobacco use date assessed: 12/11/23 Dental Screening Dental Screen Date: 12/11/23 HPI f/u smoking cessation HPI Details Patient is a 44-year-old female here today for a follow up. Patient has a past medical history significant for tobacco use disorder, generalized anxiety disorder, chronic lumbar spine pain, migraines.. Neck pain: Reports having 1 month history of acute posterior right-sided neck pain worse upon some rotational and flexion range of motions of her neck. She believes her neck pain is making her migraines worse. She has been using Excedrin on a muscle daily basis.. Of note she also reports having worsening migraine type symptoms even to the point she wakes up in the middle the night with nausea and has to vomit. She has had no neurology follow-up at this point in his interested in doing so. Hot flashes: Has been experiencing episodes of hot flashes that have gradually gotten better over the last few weeks.. Has elevated FSH, likely in menopause. Has not had a menstrual period in quite some time. Did have a partial hysterectomy years ago. She has followed up with [facility] though no recommendations on starting hormonal therapy due to her smoking Tabacco use disorder:? unfortunately still smoking though has cut down some.? She continues to try to quit smoking she does have nicotine patches available to her. Has tried Chantix though has not been effective. [facility] Medical History MDD (major depressive disorder), recurrent episode, moderate Lumbar disc herniation with myelopathy Asthma Chronic migraine Hx of cervical cancer Surgical History History of esophagogastroduodenoscopy (EGD) H/O colonoscopy History of elbow surgery History of removal of cyst History of hysterectomy History of section Family History Father Diabetes PAD (peripheral artery disease) Hypertension Mother CAD (coronary artery disease) Emphysema lung Sister No problems noted. Brother No problems noted. 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 Milton Yu, Diamante Naik, Syd Wooten and colleagues, with an educational jeffrey from [employer]. Review of Systems Const Reports headache(s) Eyes Denies loss of vision ENT Denies vertigo, Denies dizziness, Reports headache(s) and Denies sore throat Card Denies chest pain, Denies leg edema and Denies lightheadedness Resp Denies cough, Denies hemoptysis and Denies wheezing GI Denies abdominal pain, Denies melena, Denies constipation, Denies diarrhea and Denies vomiting Denies urinary frequency, Denies dysuria and Denies urinary urgency Musc Denies arthralgias, Denies joint swelling, Denies numbness and Denies tingling Neuro Denies Abnormal speech present, Denies behavioral changes, Denies vertigo, Denies dizziness, Reports headache(s), Denies loss of vision, Denies memory loss, Denies numbness and Denies tingling Psych Denies anxiety, Denies behavioral changes, Denies depression, Denies memory loss and Denies panic attacks Willam/Lymph Denies easy bleeding and Denies easy bruising Aller/Immun Denies wheezing Physical exam (Primary Care) Vital Signs: Last Vital Signs Pulse 86 06/17/24 10:41 BP 132/90 H 06/17/24 10:41 BMI result Body Mass Index 21.1 Tobacco/Smoking Status: Tobacco use Status Tobacco use date assessed 12/11/23 06/17/24 10:43 Patient Tobacco Use Status Current everyday Tobacco 06/17/24 10:43 Tobacco use type Cigarette 06/17/24 10:43 e-Cigarette/Vaping Use Never Used 06/17/24 10:43 Are you ready to quit: Yes Tobacco cessation counseling provided: Yes Items discussed: Nicotine replacement Relapse Prevention: discussed the importance of a supportive environment, discussed negative mood or depression after quitting, weight gain after smoking is common and discussed dietary, exercise and/or lifestyle changes Number of minutes spent counselin CPT code: 50847 - 4-10 Minutes Thrive Assessment: Date of Thrive Assessment Date Thrive assessed 12/11/23 06/17/24 10:43 Const General: healthy appearing, no acute distress, alert and awake Nutritional Appearance: well nourished Orientation/consciousness: oriented to person, oriented to place and oriented to time HENMT Ears: TM's normal bilaterally General nose exam: Normal nasal mucous membranes and turbinates present Eyes Conjunctivae: conjunctivae normal Sclerae: sclerae normal Pupils: Equal, round and reactive pupils present Neck Neck: Yes no lymphadenopathy and Yes no JVD Thyroid: Thyroid normal Carotids: no bruits Resp Effort & Inspection: normal respiratory effort and not tachypneic Auscultation: no crackles, no rales, no rhonchi and no wheezes Cardio Rate: regular rate Rhythm: regular rhythm Heart sounds: no murmurs and normal S1 and S2 GI Palpation (GI): Soft to palpation, nontender, no hepatomegaly and no splenomegaly Auscultation: normal bowel sounds Skin General skin exam: no rashes or lesions noted and dry skin Neuro General: oriented to person, oriented to place and oriented to time Cranial nerves: Yes Equal, round and reactive pupils present Speech: No Abnormal speech present Gait exam (Neuro): Normal gait present Motor exam (neuro): no tremor noted Extrem Right upper extremity: full ROM Left upper extremity: full ROM Right lower extremity: full ROM; no edema Left lower extremity: full ROM; no edema Psych Mental Status: mental status grossly normal Speech and movement: Normal speech and movement present Affect: normal affect Attitude: cooperative Thought process: Normal thought process present Assessment and Plan Assessment & Plan (1) Smoker: Code(s): F17.200 - Nicotine dependence, unspecified, uncomplicated Plan: She does understand she needs to quit smoking. She has tried Chantix though has not been effective. She is willing to try nicotine patches again. (2) Cervical myelopathy with cervical radiculopathy: Code(s): G95.9 - Disease of spinal cord, unspecified; M54.12 - Radiculopathy, cervical region Plan: Followed by [facility] pain management. Has recent x-ray of her neck and waiting radiology read out. Her symptoms do seem more muscular than discogenic at this point and will likely benefit from physical therapy and patient agrees. Will continue with p.r.n. use of tramadol and muscle relaxer. (3) Migraine: Code(s): G43.909 - Migraine, unspecified, not intractable, without status migrainosus Qualifiers: Intractability: not intractable Migraine type: unspecified Status migrainosus presence: without status migrainosus Qualified Code(s): G43.909 - Migraine, unspecified, not intractable, without status migrainosus Plan: Patient continues to have chronic migraines though have been worse lately due to her neck pain. She does admit to nighttime awakenings with migraine symptoms to the point she feels nauseous and vomits. Unclear what has been a trigger to her migraines. We did discuss starting vitamin B2 and magnesium. Will refer to Neurology due to some concerning migraine symptoms and the chronicity of her migraines. Orders: Orders PT Evaluation and Treatment Today G95.9 - Disease of spinal cord, unspecified, M54.12 - Radiculopathy, cervical region Referrals Neurology Referral G43.909 - Migraine, unspecified, not intractable, without status migrainosus Coding Level of Care Code Est Pt Level 4 (08009) Diagnoses Smoker F17.200 Cervical myelopathy with cervical radiculopathy G95.9; M54.12 Migraine without status migrainosus, not intractable, unspecified migraine type G43.909 Intractability: not intractable Migraine type: unspecified Status migrainosus presence: without status migrainosus Additional Codes Vital Signs *Quality* - CPT code: 28412 - 4-10 Minutes ([id number])
== END 2024-06-17 12:38 | disposition home or self-care (01) ==
PROVIDERS: PCP Physician Assistant; Visit Provider Physician Assistant
DX: F17.200 Nicotine dependence, unspecified, uncomplicated (principal); G95.9 Disease of spinal cord, unspecified; M54.12 Radiculopathy, cervical region; G43.909 Migraine, unspecified, not intractable, without status migrainosus
CPT/HCPCS: 99214; 99406

== ENCOUNTER 2024-09-18 10:04 | Outpatient (AMB) | payer MEDICARE, MEDICAID, SELFPAY ==
[2024-09-18 10:17] VITALS: BP 100/68; PULSE 74; BMI 23.5
--- NOTE | 2024-09-18 10:17 | MHC.PC.OV ---
Vital Signs 09/18/24 10:17 Height 5 ft 7 in Weight 150 lb 2 oz BMI 23.5 BP 100/68 Blood Pressure Location Lt brachial Position Sitting Pulse 74 Pulse Source Pulse Oximeter Intake Visit Reasons: f/u tabacco dependence Media Producer Required: No Accompanied by: Self / Same As Patient Allergies latex Allergy (Unknown, Verified 09/18/24 10:20) pruritis orange Allergy (Unknown, Verified 09/18/24 10:20) Pruritis Medication List - Last Reconciled 09/18/24 by Nathaniel Basurto PA-C albuterol sulfate 90 mcg/actuation 1 puff inhalation QID PRN amitriptyline 25 mg PO BEDTIME 30 days clonidine HCl 0.2 mg PO BID 30 days cyclobenzaprine 10 mg PO BEDTIME 30 days ibuprofen 800 mg PO TID PRN lactulose 20 grams (30 mL) PO BID PRN 15 days lorazepam 0.5 mg PO DAILY 30 days nicotine 1 patch transdermal DAILY 14 days nicotine 1 patch transdermal Q24H 14 days omeprazole 20 mg PO DAILY ondansetron HCl 8 mg PO Q12H 10 days prednisone 10 mg PO DAILY 5 days sennosides (Natural Senna Laxative) 8.6 mg PO DAILY sertraline (Zoloft) 100 mg PO DAILY 30 days Tobacco use date assessed: 12/11/23 Dental Screening Dental Screen Date: 12/11/23 HPI f/u tabacco dependence HPI Details Patient is a 44-year-old female here today for a follow up. Patient has a past medical history significant for tobacco use disorder, generalized anxiety disorder, chronic lumbar spine pain, migraines.. Migraines: Has noted that extension migraine has been helpful for migraines. She is not taking anymore tramadol and I congratulated her about this. .. Anxiety: She does report her anxiety is fairly well controlled with p.r.n. use of her lorazepam. Does have clonidine she uses on an as needed basis as well. He is not speaking with a mental health therapist at this time Tabacco use disorder:? unfortunately still smoking though has cut down some.? She continues to try to quit smoking she does have nicotine patches available to her. Has tried Chantix though has not been effective. [facility] Medical History MDD (major depressive disorder), recurrent episode, moderate Lumbar disc herniation with myelopathy Asthma Chronic migraine Hx of cervical cancer Surgical History History of esophagogastroduodenoscopy (EGD) H/O colonoscopy History of elbow surgery History of removal of cyst History of hysterectomy History of section Family History Father Diabetes PAD (peripheral artery disease) Hypertension Mother CAD (coronary artery disease) Emphysema lung Sister No problems noted. Brother No problems noted. 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 Milton Yu, Diamante Naik, Syd Wooten and colleagues, with an educational jeffrey from [employer]. Physical exam (Primary Care) Vital Signs: Last Vital Signs Pulse 74 09/18/24 10:17 BP 100/68 09/18/24 10:17 BMI result Body Mass Index 23.5 Tobacco/Smoking Status: Tobacco use Status Tobacco use date assessed 12/11/23 09/18/24 10:18 Patient Tobacco Use Status Current everyday Tobacco 09/18/24 10:18 Tobacco use type Cigarette 09/18/24 10:18 e-Cigarette/Vaping Use Never Used 09/18/24 10:18 Are you ready to quit: No Tobacco cessation counseling provided: Yes Items discussed: Nicotine replacement Relapse Prevention: discussed the importance of a supportive environment, discussed negative mood or depression after quitting, weight gain after smoking is common and discussed dietary, exercise and/or lifestyle changes Number of minutes spent counselin CPT code: 26022 - 4-10 Minutes Thrive Assessment: Date of Thrive Assessment Date Thrive assessed 12/11/23 09/18/24 10:18 Office Procedures Flu Questionnaire Does the patient have a severe egg allergy?: No Does the patient have severe life threatening allergies?: No Does the patient have a fever or illness today?: No Has the patient ever had Guillain-[place] Syndrome?: No Has the patient ever had any past reaction to a flu shot?: No Immunizations Fluarix Triv [id number] (PF) 45 mcg (15 mcg x 3)/0.5 mL IM syringe Performing Provider: Nathaniel Basurto PA-C [facility] Administered by: TREY Burger on 09/18/24 10:50 Dose Route Admin Location Dispensed Lot Number Expiration Date NDC 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 0.5 mL IM Left Deltoid 0.5 mL [id number] 05/25/25 [id number] [employer] VIS Given Date VIS Provided VIS Publication Date 09/18/24 Single Vaccine 21 Eligibility Eligibility Date Funding Source Not [facility] Eligible 09/18/24 Private Coding Level of Care Code Est Pt Level 4 (33581) Diagnoses ARMIRO (generalized anxiety disorder) F41.1 Tobacco dependence F17.200 Additional Codes Vital Signs *Quality* - CPT code: 52996 - 4-10 Minutes ([id number]) Assessment & Plan Assessment & Plan (1) RAMIRO (generalized anxiety disorder): Code(s): F41.1 - Generalized anxiety disorder Category: Medical Plan: Patient continues to suffer with some anxiety which most likely is a trigger for her smoking. She does use lorazepam on a very as needed basis with good effect on her anxiety. (2) Tobacco dependence: Code(s): F17.200 - Nicotine dependence, unspecified, uncomplicated Category: Medical Plan: Patient does understand she needs to quit smoking and does have nicotine replacement available to her to use when she needs. She has tried medication should she is Chantix though has not been effective. Orders: Orders Comprehensive [place]. Panel Fast 09/18/24 Z13.1 - Encounter for screening for diabetes mellitus Influenza [id number] Immunization 09/18/24 Z23 - Encounter for immunization Complete Blood Count no Diff 09/18/24 Z13.1 - Encounter for screening for diabetes mellitus Medications: Refilled cyclobenzaprine 10 mg PO BEDTIME 30 tabs 1RF 30 days G99.2 - Myelopathy in diseases classified elsewhere, M48.061 - Spinal stenosis, lumbar region without neurogenic claudication lorazepam 0.5 mg PO DAILY 14 tabs 3RF anxiety 30 days F41.1 - Generalized anxiety disorder amitriptyline 25 mg PO BEDTIME 30 tabs 3RF 30 days G43.709 - Chronic migraine without aura, not intractable, without status migrainosus ondansetron HCl 8 mg PO Q12H 20 tabs 3RF 10 days K29.70 - Gastritis, unspecified, without bleeding
== END 2024-09-18 10:54 | disposition home or self-care (01) ==
PROVIDERS: PCP Physician Assistant; Visit Provider Physician Assistant
DX: F41.1 Generalized anxiety disorder (principal); F17.200 Nicotine dependence, unspecified, uncomplicated

== ENCOUNTER → 2024-09-18 10:04 | Outpatient (BNVA) | payer MEDICARE, MEDICAID, SELFPAY | PROVIDERS: PCP Physician Assistant; Visit Provider Physician Assistant | DX: Z23 Encounter for immunization (principal); F41.1 Generalized anxiety disorder; F17.200 Nicotine dependence, unspecified, uncomplicated; Z71.6 Tobacco abuse counseling | CPT/HCPCS: 90471; 90656; 99212 ==

== ENCOUNTER 2025-01-05 11:49 | Outpatient (REF) | payer OTHER, SELFPAY | END 2025-01-05 11:50 | disposition home or self-care (01) | LOC: HO.MAMMO 11:49 | PROVIDERS: PCP Physician Assistant; Visit Provider Physician Assistant | DX: Z12.31 Encounter for screening mammogram for malignant neoplasm of breast (principal) | CPT/HCPCS: 77063; 77067 ==

== ENCOUNTER → 2025-01-05 12:00 | Outpatient (BNV) | payer OTHER, SELFPAY | PROVIDERS: PCP Physician Assistant; Visit Provider Internal Medicine | DX: Z12.31 Encounter for screening mammogram for malignant neoplasm of breast (principal) | CPT/HCPCS: 77063; 77067 ==

== ENCOUNTER 2025-01-16 09:13 | Outpatient (AMB) | payer OTHER, SELFPAY ==
--- NOTE | 2025-01-16 09:15 | A.OFFVIS_ITS ---
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: Migraines Intake Note: referred by Solis Basurto for migraines Allergies latex Allergy (Unknown, Verified 01/16/25 09:19) pruritis orange Allergy (Unknown, Verified 01/16/25 09:19) Pruritis Medication List - Last Reconciled 01/16/25 by Berta Dooley MD albuterol sulfate 90 mcg/actuation 1 puff inhalation QID PRN amitriptyline 25 mg PO BEDTIME 30 days clonidine HCl 0.2 mg PO BID 30 days cyclobenzaprine 10 mg PO BEDTIME 30 days gabapentin 300 mg PO BEDTIME ibuprofen 800 mg PO TID PRN lactulose 20 grams (30 mL) PO BID PRN 15 days lorazepam 0.5 mg PO DAILY 30 days magnesium oxide 400 mg PO BEDTIME nicotine 1 patch transdermal Q24H 14 days nicotine 1 patch transdermal DAILY 14 days omeprazole 20 mg PO DAILY ondansetron HCl 8 mg PO Q12H 10 days prednisone 10 mg PO DAILY 5 days riboflavin (vitamin B2) 400 mg PO QAM sennosides (Natural Senna Laxative) 8.6 mg PO DAILY sumatriptan succinate take 1 tab at onset of headache; if no relief may repeat 1 tab after at least 2 hrs; max = 4 tabs/24 hr PO HPI Comments Details: 44y/o Right handed female comes for management of chronic headaches. She started getting noticeable headaches in her teens and has increased intensity and frequency since then. Headaches can be unilateral or bilateral, temporal, occipital , whole head pulsating , pounding pain with severe nausea, vomiting, photophobia, phonophobia ,blurry vision , visual aura, has neck pain , tingling in her hands. The headaches lasts few hrs to days. she used to take tramadol for many years but her PCP stopped and now takes OTC ibuprofen 800mg 2 tabs . she has 5-7 headaches days a week and takes 30 ibuprofens a week or more. she also tries tylenol- but does not help. she has tried some triptans many years ago and it did not work. She has anxiety which is fairly controlled No known major head injuries she is not aware of family history She had partial hysterectomy 14 years ago. she does not sleep good- has trouble falling asleep and frequent arousals during sleep with headaches and excessive daytime fatigue.she also reports leg cramps at rest he has first cousin with aneurysm she sees [facility] pain management [facility] Medical History (Updated 01/16/25 @ 10:07 by Berta Dooley MD) Chronic migraine with aura FHx: cerebral aneurysm Leg cramps, sleep related Snoring Hypersomnia MDD (major depressive disorder), recurrent episode, moderate Lumbar disc herniation with myelopathy Asthma Chronic migraine Hx of cervical cancer Surgical History History of esophagogastroduodenoscopy (EGD) H/O colonoscopy History of elbow surgery History of removal of cyst History of hysterectomy History of section Family History Father Diabetes PAD (peripheral artery disease) Hypertension Mother CAD (coronary artery disease) Emphysema lung Sister No problems noted. Brother No problems noted. 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 Cognitive needs: No Hearing needs: No Vision needs: No Female Reproductive History Menstrual Age of Menarche: 11 Physical Exam Vital Signs: Last Vital Signs BP 124/74 01/16/25 09:16 BMI result Body Mass Index 24.7 Const General: cooperative, healthy appearing, comfortable and no acute distress Nutritional Appearance: average body habitus Orientation/consciousness: patient oriented x3 Eyes Pupils: Equal, round and reactive pupils present Neuro Other: neck tightness and tenderness General: patient oriented x3, gait normal, tone normal, moves all extremities and no focal motor deficits Cranial nerves: Yes Facial sensation intact/muscles of mastication intact, Yes Equal, round and reactive pupils present, Yes Bilaterally intact EOM present, Yes Nystagmus not present, Yes Normal facial strength present and Yes Midline tongue present Cognition (Neuro): normal cognition Gait exam (Neuro): Normal gait present Motor exam (neuro): 5/5 motor strength present throughout and Normal motor muscle tone present throughout Deep tendon reflexes (DTR's): Right triceps reflex intensity grade: 1+, Left triceps reflex intensity grade: 1+, Rt Biceps (C5, C6): 1+, Left biceps reflex intensity grade: 1+, Right brachioradialis reflex intensity grade: 1+, Left brachioradialis reflex intensity grade: 1+, Right patellar reflex intensity grade: 1+ and Left patellar reflex intensity grade: 1+ Coordination: [id number] test normal Assessment & Plan Assessment & Plan (1) Chronic migraine with aura: Code(s): G43.E09 - Chronic migraine with aura, not intractable, without status migrainosus Category: Medical Qualifiers: Status migrainosus presence: without status migrainosus Intractability: not intractable Qualified Code(s): G43.E09 - Chronic migraine with aura, not intractable, without status migrainosus (2) FHx: cerebral aneurysm: Code(s): Z82.49 - Family history of ischemic heart disease and other diseases of the circulatory system Category: Medical (3) Leg cramps, sleep related: Code(s): G47.62 - Sleep related leg cramps Category: Medical (4) Snoring: Code(s): R06.83 - Snoring Category: Medical (5) Hypersomnia: Code(s): G47.10 - Hypersomnia, unspecified Category: Medical Plan Take amitriptyline 25 mg qhs consistently I will trial her on magnesium 400mg qhs and Riboflavin 400mg qam , gabapentin 300mg qhs for prophylaxis Sumatriptan 50mg as needed for migraine MRI MRA brain F/u [facility] pain management Cyclobenzaprine 5 mg qhs Orders: Orders RT home sleep study Today G47.10 - Hypersomnia, unspecified, G47.62 - Sleep related leg cramps, R06.83 - Snoring MR head/brain wo con Today G43.709 - Chronic migraine without aura, not intractable, without status migrainosus, Z82.49 - Family history of ischemic heart disease and other diseases of the circulatory system MR angio head wo/w con Today F48.8 - Other specified nonpsychotic mental disorders, G43.709 - Chronic migraine without aura, not intractable, without status migrainosus, Z82.49 - Family history of ischemic heart disease and other diseases of the circulatory system Medications: New gabapentin 300 mg PO BEDTIME 90 caps 6RF sumatriptan succinate take 1 tab at onset of headache; if no relief may repeat 1 tab after at least 2 hrs; max = 4 tabs/24 hr PO 14 tabs 6RF magnesium oxide 400 mg PO BEDTIME 90 tabs 6RF riboflavin (vitamin B2) 400 mg PO QAM 90 tabs 6RF Coding Level of Care Code New Pt Level 4 (95677) Complex EM visit Add On G2211 Diagnoses Chronic migraine with aura without status migrainosus, not intractable G43.E09 Status migrainosus presence: without status migrainosus Intractability: not intractable FHx: cerebral aneurysm Z82.49 Leg cramps, sleep related G47.62 Snoring R06.83 Hypersomnia G47.10
[2025-01-16 09:16] VITALS: BP 124/74; BMI 24.7
== END 2025-01-16 10:03 | disposition home or self-care (01) ==
PROVIDERS: PCP Physician Assistant; Visit Provider Psychiatry & Neurology Neurology
DX: G43.E09 Chronic migraine with aura, not intractable, without status migrainosus (principal); Z82.49 Family history of ischemic heart disease and other diseases of the circulatory system; G47.62 Sleep related leg cramps; R06.83 Snoring; G47.10 Hypersomnia, unspecified
CPT/HCPCS: 99204; G2211

== ENCOUNTER → 2025-01-16 09:13 | Outpatient (BNVA) | payer OTHER, SELFPAY | PROVIDERS: PCP Physician Assistant; Visit Provider Psychiatry & Neurology Neurology | DX: G43.E09 Chronic migraine with aura, not intractable, without status migrainosus (principal); G47.62 Sleep related leg cramps; G47.10 Hypersomnia, unspecified; R06.83 Snoring; Z82.49 Family history of ischemic heart disease and other diseases of the circulatory system | CPT/HCPCS: 99202 ==

== ENCOUNTER 2025-02-03 13:32 | Outpatient (REF) | payer OTHER, SELFPAY ==
[2025-02-06 15:07] LABS: HPV Genotype 16 Negative (Negative); HPV Genotype 18 Negative (Negative); HPV High Risk Negative (Negative)
== END 2025-02-03 13:33 | disposition home or self-care (01) ==
LOC: HO.LNP 13:32
PROVIDERS: PCP Physician Assistant; Visit Provider Advanced Practice Midwife
DX: Z01.419 Encounter for gynecological examination (general) (routine) without abnormal findings (principal); Z85.41 Personal history of malignant neoplasm of cervix uteri; F17.200 Nicotine dependence, unspecified, uncomplicated
CPT/HCPCS: 87626; 88175; 99396; 99459

== ENCOUNTER 2025-02-03 13:32 | Outpatient (AMB) | payer OTHER, SELFPAY ==
[2025-02-03 13:34] VITALS: BP 126/70
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
== END 2025-02-03 15:05 | disposition home or self-care (01) ==
LOC: HO.HWSM 13:32
PROVIDERS: PCP Physician Assistant; Visit Provider Advanced Practice Midwife
DX: Z01.419 Encounter for gynecological examination (general) (routine) without abnormal findings (principal); Z85.41 Personal history of malignant neoplasm of cervix uteri; F17.200 Nicotine dependence, unspecified, uncomplicated; Z12.39 Encounter for other screening for malignant neoplasm of breast
CPT/HCPCS: 99396; 99459

== ENCOUNTER → 2025-02-20 09:38 | Outpatient (BNV) | payer OTHER, SELFPAY | PROVIDERS: PCP Physician Assistant; Visit Provider Radiology Diagnostic Radiology | DX: G43.709 Chronic migraine without aura, not intractable, without status migrainosus (principal) | CPT/HCPCS: 70546; 70551 ==

== ENCOUNTER 2025-02-20 09:39 | Outpatient (REF) | payer OTHER, SELFPAY ==
--- NOTE | ~2025-02-20 | MR_ITS ---
EXAMINATION: MR BRAIN WITHOUT CONTRAST CLINICAL INFORMATION: Chronic migraine. COMPARISON: None available. TECHNIQUE: MRI of the brain was obtained using routine sequences without contrast. FINDINGS: No restricted diffusion. No acute intracranial hemorrhage, mass effect, midline shift, hydrocephalus or herniation. Winn-white matter differentiation is normal. There is a 1.6 cm extra-axial heterogeneous slightly hyperintense FLAIR with hypointense T2 signal centered in the apophysis kyler brandi. Posterior cranial fossa contents demonstrated no acute intracranial hemorrhage or mass effect. There is quite small isointense signal within the right internal auditory canal. Flow-void signal within the main cerebral vessels is normal. Sellar/suprasellar region demonstrated no signal abnormality or gross masses. Craniocervical junction is intact and normal. MR/MR head/brain wo con IMPRESSION: No acute brain abnormality. Questionable meningioma at the apophysis kyler brandi. Recommend dedicated IV contrast enhanced MRI brain. Questionable intracanalicular isointense T2 signal, right internal auditory canal. Electronically signed by: Yazan Ramsay MD 02/20/2025 11:58 AM EDT
--- NOTE | ~2025-02-20 | MR_ITS ---
EXAMINATION: MR ANGIOGRAPHY BRAIN WITHOUT AND WITH CONTRAST CLINICAL INFORMATION: No psychotic mental disorder. Cerebral aneurysm. COMPARISON: None available. TECHNIQUE: Axial 3-D [id number]. Maximum intensity projections. IV contrast,: Total of 7 cc Gadavist. No reported immediate complications. FINDINGS: Anterior cerebral circulation: ICAs: Normal patency. No focal stenosis. No abrupt cut off. Ophthalmic arteries are patent without vascular irregularity at the origin. MCA's: Normal patency. No focal stenosis. No abrupt cut off. Trifurcation/bifurcation demonstrated no vascular irregularity. ACAs: Normal patency. No focal stenosis. No abrupt cut off. Anterior communicating artery is patent. Posterior communicating arteries are patent without vascular irregularity at the origin. Posterior cerebral circulation: V3/V4 segments: Normal patency. No intimal flap. Left posterior inferior cerebellar artery is patent without contour irregularity in its origin. I do not see the right posterior inferior cerebellar artery. Anterior inferior cerebellar arteries are patent. Basilar artery is patent without focal stenosis or intimal flap. Basilar artery tip is normal. Superior cerebellar arteries are patent. peg driver: Normal patency. No focal stenosis. No abrupt cut off. MR/MR angio head wo/w con IMPRESSION: Normal MRA brain. Electronically signed by: Yazan Ramsay MD 02/20/2025 12:28 PM EDT
[2025-02-20] MEDS: gadobutroL 7.5 ML VIAL IVPUSH (11:16)
== END 2025-02-20 09:40 | disposition home or self-care (01) ==
LOC: HO.MRI 09:39
PROVIDERS: PCP Physician Assistant; Visit Provider Psychiatry & Neurology Neurology
DX: F48.8 Other specified nonpsychotic mental disorders (principal); G43.709 Chronic migraine without aura, not intractable, without status migrainosus; Z82.49 Family history of ischemic heart disease and other diseases of the circulatory system
CPT/HCPCS: 70546; 70551; A9585

== ENCOUNTER 2025-02-27 09:20 | Outpatient (AMB) | payer OTHER, SELFPAY ==
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
[2025-02-27 09:28] VITALS: BP 130/90; PULSE 76; O2SAT 98; BMI 24.3
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
== END 2025-02-27 10:12 | disposition home or self-care (01) ==
LOC: HO.HSMS 09:21
PROVIDERS: PCP Physician Assistant; Visit Provider Physician Assistant Medical
DX: M54.2 Cervicalgia (principal); D42.9 Neoplasm of uncertain behavior of meninges, unspecified; G43.E09 Chronic migraine with aura, not intractable, without status migrainosus; Z82.49 Family history of ischemic heart disease and other diseases of the circulatory system; G47.62 Sleep related leg cramps; R06.83 Snoring; G47.10 Hypersomnia, unspecified; R53.83 Other fatigue; G47.9 Sleep disorder, unspecified
CPT/HCPCS: 99214; G2211

== ENCOUNTER → 2025-02-27 09:20 | Outpatient (BNVA) | payer OTHER, SELFPAY | PROVIDERS: PCP Physician Assistant; Visit Provider Physician Assistant Medical | DX: G43.E09 Chronic migraine with aura, not intractable, without status migrainosus (principal); G47.62 Sleep related leg cramps; G47.10 Hypersomnia, unspecified; M54.2 Cervicalgia; D42.9 Neoplasm of uncertain behavior of meninges, unspecified; R06.83 Snoring; R53.83 Other fatigue; Z82.49 Family history of ischemic heart disease and other diseases of the circulatory system | CPT/HCPCS: 99212 ==

== ENCOUNTER 2025-03-03 09:16 | Outpatient (REF) | payer OTHER, SELFPAY ==
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
[2025-03-03 18:41] LABS: MANUAL DIFF FLAG NO
[2025-03-03 18:56] LABS: Basophils Absolute Auto 0.1 X10*3/uL (0.0-0.2); Basophils Percent Auto 1.2 % (0-2); Eosinophils Absolute Auto 0.2 X10*3/uL (0.0-0.4); Eosinophils Percent Auto 2.8 % (0-4); Hemoglobin 13.6 g/dl (12.0-16.0); Imm Gran Abs Auto 0.03 X10*3/uL (0.00-0.03); Imm Gran Pct Auto 0.5 % (0.0-0.4); Lymphocytes Absolute Auto 2.2 X10*3/uL (1.2-4.9); Lymphocytes Percent Auto 37.4 % (20-40); Mean Corpuscular HGB Conc 31.6 g/dl (31.0-35.0); Mean Corpuscular Hemoglobin 27.3 pg (27.0-33.0); Mean Corpuscular Volume 86.3 fL (80.0-98.0); Mean Platelet Volume 10.1 fL (9.4-12.3); Monocytes Absolute Auto 0.7 X10*3/uL (0.1-1.2); Monocytes Percent Auto 11.8 % (2-11); Neutrophils Absolute Auto 2.7 x10*3/uL (2.0-8.3); Neutrophils Percent Auto 46.3 % (45-73); Platelet Count 297 X10*3/uL (160-400); Red Blood Count 4.98 X10*6/uL (4.20-5.50); Red Cell Distribution Width 13.4 % (11.0-16.0); White Blood Count 5.8 X10*3/uL (4.8-10.8)
[2025-03-03 19:09] LABS: Alanine Aminotransferase < 6 U/L (0-31); Albumin Level 3.7 g/dL (3.5-5.0); Alkaline Phosphatase 68 U/L (39-117); Anion Gap 7 (12-20); Aspartate Amino Transferase 22 U/L (5-31); Bilirubin Total 0.6 mg/dL (0.0-1.0); Blood Urea Nitrogen 7 mg/dL (9-16); Calcium 8.9 mg/dL (8.4-10.2); Carbon Dioxide 26 mmol/L (22-29); Chloride 111 mmol/L (96-108); Estimated Glomerular Filt Rate > 60; Glucose Random 92 mg/dL (60-115); Potassium 4.3 mmol/L (3.3-5.1); Sodium 140 mmol/L (135-145); Total Protein 6.1 g/dL (6.5-8.0)
== END 2025-03-03 09:17 | disposition home or self-care (01) ==
LOC: HO.HKASLDS 09:16
PROVIDERS: Nurse Practitioner Family; PCP Physician Assistant; Visit Provider Psychiatry & Neurology Neurology
DX: F17.200 Nicotine dependence, unspecified, uncomplicated (principal); G47.62 Sleep related leg cramps; G47.10 Hypersomnia, unspecified; J45.20 Mild intermittent asthma, uncomplicated; F41.1 Generalized anxiety disorder
CPT/HCPCS: 36415; 80053; 85025

== ENCOUNTER → 2025-03-06 11:08 | Outpatient (BNV) | payer OTHER, SELFPAY | PROVIDERS: PCP Physician Assistant; Visit Provider Radiology Vascular & Interventional Radiology | DX: D32.0 Benign neoplasm of cerebral meninges (principal) | CPT/HCPCS: 70553 ==

== ENCOUNTER 2025-03-06 11:14 | Outpatient (REF) | payer OTHER, SELFPAY ==
--- NOTE | ~2025-03-06 | MR_ITS ---
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 Reference postcontrast axial image 11 and postcontrast coronal image 27, there is a uniformly enhancing dural-based mass along the inferior left frontal lobe, measuring up to 1.6 x1 0.2 x 1.0 cm. This results in mild local mass effect. No midline shift. No surrounding edema. Thin slice high-resolution images through the IAC's demonstrate no cerebellopontine angle mass or abnormal enhancement along the cranial nerves. 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 No cerebellopontine angle mass or evidence of see lesion. This document has been electronically signed by: Christiano Villegas MD on 03/06/2025 12:30:18
[2025-03-06] MEDS: gadobutroL 7.5 ML VIAL IVPUSH (12:06)
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
== END 2025-03-06 11:15 | disposition home or self-care (01) ==
LOC: HO.MRI 11:14
PROVIDERS: PCP Physician Assistant; Visit Provider Physician Assistant Medical
DX: D42.9 Neoplasm of uncertain behavior of meninges, unspecified (principal); M54.2 Cervicalgia
CPT/HCPCS: 70553; A9585

== ENCOUNTER → 2025-03-17 08:34 | Outpatient (REF) | payer OTHER, SELFPAY ==
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
== END ==
LOC: HO.SL 08:34
PROVIDERS: PCP Physician Assistant; Visit Provider Psychiatry & Neurology Neurology
DX: G47.10 Hypersomnia, unspecified (principal); R06.83 Snoring; G47.62 Sleep related leg cramps
CPT/HCPCS: 95806

== ENCOUNTER → 2025-03-17 08:43 | Outpatient (BNV) | payer OTHER, SELFPAY | PROVIDERS: PCP Physician Assistant; Visit Provider Psychiatry & Neurology Neurology | DX: R06.83 Snoring (principal); G47.10 Hypersomnia, unspecified | CPT/HCPCS: 95806 ==

== ENCOUNTER 2025-03-24 10:13 | Outpatient (AMB) | payer OTHER, SELFPAY ==
--- NOTE | 2025-03-24 10:17 | MHC.PC.OV ---
Vital Signs 03/24/25 10:25 Height 5 ft 8 in Weight 156 lb 8 oz BMI 23.8 BP 110/60 Blood Pressure Location Lt brachial Position Sitting Pulse 80 Pulse Source Pulse Oximeter Temp 97.5 F Temp Source Temporal Artery Scan Pulse Oximetry (%) 96 Oxygen Delivery Method Room Air Intake Visit Reasons: PE Scale Technician Required: No Accompanied by: Self / Same As Patient Allergies latex Allergy (Unknown, Verified 03/24/25 10:30) pruritis orange Allergy (Unknown, Verified 03/24/25 10:30) Pruritis Medication List - Last Reconciled 03/24/25 by Nathaniel Basurto PA-C albuterol sulfate 90 mcg/actuation 1 puff inhalation QID PRN amitriptyline 25 mg PO BEDTIME 30 days clonidine HCl 0.2 mg PO BID 30 days cyclobenzaprine 10 mg PO BEDTIME 30 days gabapentin 300 mg PO BEDTIME ibuprofen 800 mg PO TID PRN lactulose 20 grams (30 mL) PO BID PRN 15 days lorazepam 0.5 mg PO DAILY 30 days magnesium oxide 400 mg PO BEDTIME nicotine 1 patch transdermal Q24H 14 days nicotine 1 patch transdermal DAILY 14 days omeprazole 20 mg PO DAILY ondansetron HCl 8 mg PO Q12H 10 days riboflavin (vitamin B2) 400 mg PO QAM sennosides (Natural Senna Laxative) 8.6 mg PO DAILY sumatriptan succinate take 1 tab at onset of headache; if no relief may repeat 1 tab after at least 2 hrs; max = 4 tabs/24 hr PO Tobacco use date assessed: 03/24/25 Dental Screening Dental Screen Date: 03/24/25 Did you have a dental visit in the last 12 months?: Yes Did you have a dental problem in the last 6 months where you did not have access to dental care?: No Was dental information given to patient?: Patient has dentist HPI PE HPI Details Patient is a 45-year-old female here today for routine annual physical Patient has a past medical history significant for tobacco use disorder, generalized anxiety disorder, chronic lumbar spine pain, migraines.. Recently found to have a meningioma on brain MRI. She has been referred to neurosurgeon at [facility] for evaluation and further treatment. Migraines: Has noted that sumatriptan has been helpful for her migraines. She is not taking anymore tramadol and I congratulated her about this. .. Anxiety: She does report her anxiety is fairly well controlled with p.r.n. use of her lorazepam. Does have clonidine she uses on an as needed basis as well. He is not speaking with a mental health therapist at this time Tabacco use disorder:? unfortunately still smoking though has cut down some.? She continues to try to quit smoking she does have nicotine patches available to her. Has tried Chantix though has not been effective. Vaccine : UTD with all vaccine. Colon cancer screening: Has had colonoscopies in the past [facility] Medical History Chronic migraine with aura FHx: cerebral aneurysm Leg cramps, sleep related Snoring Hypersomnia MDD (major depressive disorder), recurrent episode, moderate Lumbar disc herniation with myelopathy Asthma Chronic migraine Hx of cervical cancer Surgical History History of esophagogastroduodenoscopy (EGD) H/O colonoscopy History of elbow surgery History of removal of cyst History of hysterectomy History of section Family History Father Diabetes PAD (peripheral artery disease) Hypertension Mother CAD (coronary artery disease) Emphysema lung Sister No problems noted. Brother No problems noted. 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 1. Little interest or pleasure in doing things: not at all 2. Feeling down, depressed, or hopeless: more than half the days 3. Trouble falling or staying asleep, or sleeping too much: more than half the days 4. Feeling tired or having little energy: several days 5. Poor appetite or overeating: more than half the days 6. Feeling bad about yourself - or that you are a failure or have let yourself or your family down: not at all 7. Trouble concentrating on things, such as reading the newspaper or watching television: more than half the days 8. Moving or speaking so slowly that other people could have noticed. Or the opposite - being so fidgety or restless that you have been moving around a lot more than usual: not at all 9. Thoughts that you would be better off or of hurting yourself in some way: not at all Total score: 9 Depression Screening Interpretation: Positive Depression Screening Follow-up: Existing condition and In treatment Depression Screening Done: Yes 06566 - PHQ-9 Billing: Yes Source: Developed by Drs. Milton Yu, Diamante Naik, Syd Wooten and colleagues, with an educational jeffrey from [employer]. Thrive Questionnaire Date Thrive assessed: 03/24/25 I am a: Patient What is your living situation today?: I have a steady place to live Within the past 12 months, did the food you bought not last and you didn't have the money to get more?: Never true Within the past 12 months, did you worry whether your food would run out before you got money to buy more?: Never true Do you have trouble paying for medicines?: No Do you have trouble getting transportation to medical appointments?: No Do you have trouble paying your heating and electricity bill?: No Do you have trouble taking care of your child, family member or friend?: No Do you have trouble with day-to-day activities such as bathing, preparing meals, shopping, managing finances, etc.?: Yes Are you currently unemployed and looking for a job?: Yes Are you interested in more education?: No Please select the resources that you would like help with: None Currently or been in a relationship where the following occur: No concerns reported THRIVE Score: 0 AUDIT C Alcohol Use Questionnaire (AUDIT-C) 1. How often do you have a drink containing alcohol?: Never 3. How often do you have six or more drinks on one occasion?: Never Total Score: 0 RAMIRO-7 AMB Questionnaire RAMIRO-7 Date RAMIRO - 7 assessed: 03/24/25 Feeling nervous, anxious, or on edge: 3 = Nearly every day Not being able to stop or control worryin = Several days Worrying too much about different things: 1 = Several days Trouble relaxin = Several days Being so restless that it is hard to sit still: 0 = Not at all Becoming easily annoyed or irritable: 1 = Several days Feeling afraid as if something awful might happen: 0 = Not at all Total RAMIRO-7 score (0-4 normal; 5-9 mild; 10-14 moderate; 15-21 severe): 7 Source: Developed by Drs. Milton Yu, Diamante Naik, Syd Wooten and colleagues, with an educational jeffrey from [employer]. RAMIRO-7 Assessment Billing RAMIRO-7 Assessment Tool: RAMIRO-7 Assessment 06651 Review of Systems Const All systems reviewed & are unremarkable except as noted in HPI and below Denies body aches, Denies chills, Denies excessive sweating, Denies fatigue, Denies fever(s) and Reports headache(s) Eyes Denies blurry vision ENT Denies dysphagia, Denies vertigo, Denies dizziness, Reports headache(s), Denies hearing loss and Denies tinnitus Card Denies chest pain, Denies chest pain with activity, Denies syncope, Denies irregular heart rhythm and Denies dyspnea Resp Denies chest congestion, Denies cough, Denies hemoptysis, Denies dyspnea and Denies wheezing GI Denies abdominal pain, Denies melena, Denies hematochezia, Denies coffee ground emesis, Denies dysphagia, Denies diarrhea, Denies nausea and Denies vomiting Denies urinary frequency, Denies dysuria, Denies urinary hesitancy and Denies urinary urgency Musc Denies arthralgias, Denies limited range of motion, Denies muscle cramps and Denies muscle weakness Skin/Breast Denies rash and Denies skin ulcer Neuro Denies Abnormal speech present, Denies confusion, Denies vertigo, Denies dizziness, Denies syncope, Reports headache(s), Denies memory loss and Denies seizure-like activity Psych Reports anxiety, Denies confusion, Denies depression, Denies memory loss, Denies panic attacks and Denies paranoia Endo Denies excessive sweating, Denies fatigue, Denies flushing, Denies polydipsia and Denies polyuria Aller/Immun Denies wheezing Physical exam (Primary Care) Vital Signs: Last Vital Signs Temp 97.5 F 03/24/25 10:25 Pulse 80 03/24/25 10:25 BP 110/60 03/24/25 10:25 Pulse Ox 96 03/24/25 10:25 Oxygen Delivery Method Room Air 03/24/25 10:25 BMI result Body Mass Index 23.8 Tobacco/Smoking Status: Tobacco use Status Tobacco use date assessed 03/24/25 03/24/25 10:18 Patient Tobacco Use Status Current everyday Tobacco 03/24/25 10:43 Tobacco use type Cigarette 03/24/25 10:43 e-Cigarette/Vaping Use Never Used 03/24/25 10:43 Are you ready to quit: No Tobacco cessation counseling provided: Yes Items discussed: Nicotine replacement Relapse Prevention: discussed the importance of a supportive environment, discussed negative mood or depression after quitting, weight gain after smoking is common and discussed dietary, exercise and/or lifestyle changes Number of minutes spent counselin CPT code: 78549 - 4-10 Minutes PHQ-9: PHQ-9 Score PHQ-9: Total score 9 03/24/25 10:48 Depression Screening Interpretation: Positive Depression Screening Follow-up: Existing condition and In treatment Thrive Assessment: Date of Thrive Assessment Date Thrive assessed 03/24/25 03/24/25 10:18 Currently or been in a relationship where the following occur: No concerns reported Const General: cooperative, comfortable, no acute distress, alert and awake; No confusion Orientation/consciousness: oriented to person, oriented to place, patient oriented x3 and No confusion HENMT Head: Yes normocephalic Ears: external ears normal and TM's normal bilaterally Face and sinus: No sinus tenderness Mouth: Normal oral and palatal mucosa present and tongue normal Teeth and gingiva: dentition normal and gingiva normal Throat: Yes posterior oropharynx normal, Yes tonsils normal and Yes uvula midline Eyes Conjunctivae: conjunctivae normal Sclerae: sclerae normal Pupils: Equal, round and reactive pupils present EOM: EOMs intact bilaterally Direct Ophthalmoscopy: No no photophobia Neck Neck: Yes no lymphadenopathy, No tender and Yes no JVD Thyroid: Thyroid normal Carotids: no bruits Chest Chest palpation & inspection: no tenderness Resp Effort & Inspection: normal respiratory effort, no audible wheezes, not labored and no stridor Auscultation: no crackles, no rales, no rhonchi and no wheezes Cardio Jugular venous distension: no JVD Rate: regular rate, not bradycardic and not tachycardic Rhythm: regular rhythm Bruits: no carotid bruits Peripheral pulses: Peripheral pulses 2+ throughout GI Inspection: Yes normal to inspection, No abdominal wall ecchymosis and No visible herniation Palpation (GI): Soft to palpation, nontender, no guarding, not rigid and No hepatosplenomegaly present Auscultation: normoactive bowel sounds General: Yes no CVA tenderness Back/Spine/Pelvis Back: no CVA tenderness and No back tenderness Cervical Spine: cervical ROM normal Thoracic/Lumbar Spine: thoracic and lumbar spine normal to inspection, straight leg raise negative bilaterally, No thoraco-lumbar ROM limited and No lumbar spinal tenderness Skin Lesions: no lesions Rashes: no rashes Wounds: no wounds Neuro General: oriented to person, oriented to place, patient oriented x3, CN's II-XI intact bilaterally and No confusion Cranial nerves: Yes Equal, round and reactive pupils present and Yes Normal accommodation reflex present Cognition (Neuro): normal cognition Speech: No Abnormal speech present Gait exam (Neuro): Normal gait present Motor exam (neuro): 5/5 motor strength present throughout Extrem Right upper extremity: full ROM; no cyanosis Left upper extremity: full ROM; no cyanosis Right lower extremity: no edema Left lower extremity: no edema Psych Appearance: grossly normal Mental Status: mental status grossly normal Affect: normal affect Attitude: cooperative Thought process: Normal thought process present Coding Level of Care Code Est Pt Prev Care 40-64y(64128) Diagnoses Annual physical exam Z00.00 RAMIRO (generalized anxiety disorder) F41.1 Tobacco dependence F17.200 Colon cancer screening Z12.11 Meningioma D32.9 MDD (major depressive disorder), recurrent episode, moderate F33.1 Migraine without status migrainosus, not intractable, unspecified migraine type G43.909 Intractability: not intractable Migraine type: unspecified Status migrainosus presence: without status migrainosus Additional Codes RAMIRO-7 Assessment Billing - RAMIRO-7 Assessment Tool: RAMIRO-7 Assessment 74757 ([id number]) PHQ-9 - 92614 - PHQ-9 Billing: Yes ([id number]) Vital Signs *Quality* - CPT code: 52563 - 4-10 Minutes ([id number]) Assessment & Plan Assessment & Plan (1) Annual physical exam: Code(s): Z00.00 - Encounter for general adult medical examination without abnormal findings Category: Medical Plan: as per HPI (2) RAMIRO (generalized anxiety disorder): Code(s): F41.1 - Generalized anxiety disorder Category: Medical Plan: Patient continues to suffer with some anxiety which most likely is a trigger for her smoking. She does use lorazepam on a very as needed basis with good effect on her anxiety. (3) Tobacco dependence: Code(s): F17.200 - Nicotine dependence, unspecified, uncomplicated Category: Medical Plan: Patient does understand she needs to quit smoking and does have nicotine replacement available to her to use when she needs. She has tried medication should she is Chantix though has not been effective. (4) Colon cancer screening: Code(s): Z12.11 - Encounter for screening for malignant neoplasm of colon Category: Medical Plan: Patient in need of colonoscopy (5) Meningioma: Code(s): D32.9 - Benign neoplasm of meninges, unspecified Category: Medical Plan: As per HPI patient recently found to have meningioma on brain MRI. She has been referred to [facility] neurosurgeon for evaluation and possible treatment. (6) MDD (major depressive disorder), recurrent episode, moderate: Code(s): F33.1 - Major depressive disorder, recurrent, moderate Category: Medical Plan: Patient's PHQ-9 score positive for depression which has been existing condition for her. (7) Migraine: Code(s): G43.909 - Migraine, unspecified, not intractable, without status migrainosus Category: Medical Qualifiers: Intractability: not intractable Migraine type: unspecified Status migrainosus presence: without status migrainosus Qualified Code(s): G43.909 - Migraine, unspecified, not intractable, without status migrainosus Plan: Patient does report sumatriptan has been effective on migraine . Patient now followed by Neurology.. Since starting vitamins her migraines has been less frequent and severe. Orders: Referrals Gastroenterology Referral Z12.11 - Encounter for screening for malignant neoplasm of colon Medications: New sumatriptan succinate take 1 tab at onset of headache; if no relief, may repeat 1 tab after at least 2 hrs; max = 2 tabs/24 hrs orally PRN; 7 days 5 tabs 0RF migraine headache G89.29 - Other chronic pain, R51.9 - Headache, unspecified
[2025-03-24 10:25] VITALS: BP 110/60; PULSE 80; TEMP 36.4; O2SAT 96; BMI 23.8
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
== END 2025-03-24 11:09 | disposition home or self-care (01) ==
LOC: HO.HMCH 10:14
PROVIDERS: PCP Physician Assistant; Visit Provider Physician Assistant
DX: Z00.00 Encounter for general adult medical examination without abnormal findings (principal); F41.1 Generalized anxiety disorder; D32.9 Benign neoplasm of meninges, unspecified; F33.1 Major depressive disorder, recurrent, moderate; F17.200 Nicotine dependence, unspecified, uncomplicated; Z12.11 Encounter for screening for malignant neoplasm of colon; G43.909 Migraine, unspecified, not intractable, without status migrainosus

== ENCOUNTER → 2025-03-24 10:13 | Outpatient (BNVA) | payer OTHER, SELFPAY | PROVIDERS: PCP Physician Assistant; Visit Provider Physician Assistant | DX: Z00.01 Encounter for general adult medical examination with abnormal findings (principal); F41.1 Generalized anxiety disorder; G43.909 Migraine, unspecified, not intractable, without status migrainosus; M54.50 Low back pain, unspecified; G89.29 Other chronic pain; F17.210 Nicotine dependence, cigarettes, uncomplicated; D32.9 Benign neoplasm of meninges, unspecified; F33.1 Major depressive disorder, recurrent, moderate; Z79.899 Other long term (current) drug therapy | CPT/HCPCS: 96127; 99396 ==

== ENCOUNTER 2025-04-10 11:05 | Outpatient (AMB) | payer OTHER, SELFPAY ==
--- NOTE | 2025-04-10 11:13 | MHC.OFFVIS ---
Vital Signs 04/10/25 11:14 Height 5 ft 8 in Weight 161 lb 2 oz BMI 24.5 BP 118/78 Blood Pressure Location Rt brachial Position Sitting Pulse 88 Pulse Source Pulse Oximeter Pulse Oximetry (%) 97 Oxygen Delivery Method Room Air Intake Visit Reasons: 1 mnth f/u Intake Note: Patient presents follow up migraine. MRI in chart 03/06. Patient states that her sumatriptan is working but not last the month. She has been taking excedrin migraine as she has been out. Accompanied by: Spouse Allergies latex Allergy (Unknown, Verified 04/10/25 11:17) pruritis orange Allergy (Unknown, Verified 04/10/25 11:17) Pruritis HPI Comments Details: 45 yo r. handed female comes for management of chronic migraines. HST completed 03/2025 she does not have sleep apnea AHI was <3 and oxygen betito to 88%. MRI reviewed with patient today c/w mild local mass effect, neuro-surgeon consult with Dr. Durbin in [facility] is pending May 07, 2025. She does not sleep well and has trouble falling asleep with frequent arousals during sleep due to the nightly headaches which wake her up from sleep leading to excessive daytime fatigue. She c/o chronic unilateral and or bilateral, temporal, occipital, whole head pulsating, pounding pain with severe nausea, vomiting, photophobia, phonophobia, blurry vision, visual aura, neck pain, tingling in her hands, L>R. The headaches last few hrs to days and improved with Sumatriptan 50mg to 100mg every other day. She has 5-7 headaches which if not controlled become migraines. She takes Sumatriptan 100mg every other day and notices she is headache free every other day, which has improved from daily migraines. She continues to take her amitriptyline daily at bedtime. She has anxiety which is controlled with lorazepam, but she notices she is running out of the Sumatriptan and takes over 4-6 tablets a week. She stopped taking the Flexiril and Gabapentin as it was sedating. She smokes 1 to 1.5 pack of cigarettes daily, her voice is raspy, and coughs between sentences. She also uses MJ to help her stay asleep at night. She also reports leg cramps at rest, though they don't wake her up at night, she does have an uncomfortable sensation bilaterally in her feet and she says the magnesium helps. [facility] Medical History (Updated 04/29/25 @ 07:56 by Berta Dooley MD) Abnormal MRI Chronic migraine with aura FHx: cerebral aneurysm Leg cramps, sleep related Snoring Hypersomnia MDD (major depressive disorder), recurrent episode, moderate Lumbar disc herniation with myelopathy Asthma Chronic migraine Hx of cervical cancer Surgical History History of esophagogastroduodenoscopy (EGD) H/O colonoscopy History of elbow surgery History of removal of cyst History of hysterectomy History of section Family History Father Diabetes PAD (peripheral artery disease) Hypertension Mother CAD (coronary artery disease) Emphysema lung Sister No problems noted. Brother No problems noted. 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 Cognitive needs: No Hearing needs: No Vision needs: No Female Reproductive History Menstrual Age of Menarche: 11 Physical Exam Vital Signs: Last Vital Signs Pulse 88 04/10/25 11:14 BP 118/78 04/10/25 11:14 Pulse Ox 97 04/10/25 11:14 Oxygen Delivery Method Room Air 04/10/25 11:14 BMI result Body Mass Index 24.5 Const General: cooperative and no acute distress Nutritional Appearance: average body habitus Orientation/consciousness: patient oriented x3 HEENT Face and sinus: Yes face symmetric Eyes Pupils: Equal, round and reactive pupils present Resp Effort & Inspection: normal respiratory effort and able to speak in complete sentences Neuro General: patient oriented x3 and moves all extremities Cranial nerves: Yes Equal, round and reactive pupils present, Yes Normal accommodation reflex present, Yes Nystagmus not present, Yes Normal facial strength present, Yes Midline tongue present, Yes Ability to bilaterally rotate head present (pain on rotation bilaterally) and Yes Ability to bilaterally elevate shoulders present Gait exam (Neuro): Normal gait present Motor exam (neuro): 5/5 motor strength present throughout and Normal motor muscle tone present throughout Psych Appearance: grossly normal Speech and movement: Normal speech and movement present Results Reviewed Results Reviewed: 03/15/2025 MRI Findings: Limited sequences as a follow-up from a 02/20/2025 study. Reference postcontrast axial image 11 and postcontrast coronal image 27, there is a uniformly enhancing dural-based mass along the inferior left frontal lobe, measuring up to 1.6 x1 0.2 x 1.0 cm. This results in mild local mass effect. No midline shift. No surrounding edema. Assessment & Plan Assessment & Plan (1) Leg cramps, sleep related: Comment: psg? HST was normal will evaluate for RLS Labs are normal Code(s): G47.62 - Sleep related leg cramps Category: Medical Plan: PLMD/RLS (2) Fatigue due to sleep pattern disturbance: Code(s): R53.83 - Other fatigue; G47.9 - Sleep disorder, unspecified Category: Medical (3) Chronic headaches: Code(s): R51.9 - Headache, unspecified; G89.29 - Other chronic pain Category: Medical Qualifiers: Headache type: unspecified Intractability: not intractable Qualified Code(s): R51.9 - Headache, unspecified; G89.29 - Other chronic pain (4) Abnormal MRI: Code(s): R93.89 - Abnormal findings on diagnostic imaging of other specified body structures Category: Medical Plan PSG RLS / PLMD Stop Gabapentin 300mg po at bedtime and stop cyclobenzaprine 5 mg qhs, was sedating. Acute migraines start Rizatriptan 10mg po daily may take one additional tablet within 2 hours to abort migraines. Do not exceed more than 3 tablets daily. Chronic migraine preventive therapy Continue with amitriptyline 25 mg qhs at bedtime daily. Continue magnesium 400mg qhs at bedtime, and Riboflavin 400mg qam, for sleep difficulties and fatigue. Stop Sumatriptan if you have any leftover, medication overuse headache, taking more than 4-6 tablets weekly. Continue pain management with [facility] for Herniated Lumbar disc and Bilateral Radiculopathy/RLS?PLMD? Cervicalgia will trial Botox in future. Will trial her on Emgality if headaches are not better managed. F/u in 1-2 months after psg and neuro surgeon consult. Orders: Orders RT PSG in-lab sleep study 04/10/25 R53.83 - Other fatigue, G47.9 - Sleep disorder, unspecified, G47.62 - Sleep related leg cramps Medications: New rizatriptan do not exceed 3 doses per 24 hrs 10 mg PO Q2-4H PRN 14 tabs 0RF migraine headache 30 days MDD 20mg Z86.69 - Personal history of other diseases of the nervous system and sense organs Patient Instructions: Sleep Hygiene provided: set a scheduled bedtime and wake time to help regulate the circadian rhythm and balance the release of pituitary hormones. Sleep in a dark room, temperatures below 68 degrees, and no devices n bed. Limit caffeinated products 6 hours prior to bed, and limit fluids 2-4 hours prior to bed. Gentle night yoga, diffusing essential oils, and playing soft music can be relaxing. Migraine/ Headaches: Stop Sumatriptan, Start Rizatriptan 10mg PO, may take one addtional tablet within 2 hours of first dose if migraine/ headache does not subside/ abort. Will trial Botox in the future. Will trial Emgality or Ajovy at next visit. F/U with [facility] Neurosurgeon consult with Dr. Durbin. F/U with [facility] [place] [place] [facility] and Neuro in one month. Coding Level of Care Code Est Pt Level 4 (66019) Diagnoses Leg cramps, sleep related G47.62 Fatigue due to sleep pattern disturbance R53.83; G47.9 Chronic nonintractable headache, unspecified headache type R51.9; G89.29 Headache type: unspecified Intractability: not intractable Abnormal MRI R93.89 Time Spent (min) 30
[2025-04-10 11:14] VITALS: BP 118/78; PULSE 88; O2SAT 97; BMI 24.5
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
== END 2025-04-10 12:03 | disposition home or self-care (01) ==
LOC: HO.HSMS 11:05
PROVIDERS: PCP Physician Assistant; Visit Provider Physician Assistant Medical
DX: G47.62 Sleep related leg cramps (principal); R53.83 Other fatigue; G47.9 Sleep disorder, unspecified; R51.9 Headache, unspecified; G89.29 Other chronic pain; R93.89 Abnormal findings on diagnostic imaging of other specified body structures
CPT/HCPCS: 99214

== ENCOUNTER → 2025-04-10 11:05 | Outpatient (BNVA) | payer OTHER, SELFPAY | PROVIDERS: PCP Physician Assistant; Visit Provider Physician Assistant Medical | DX: G43.909 Migraine, unspecified, not intractable, without status migrainosus (principal); G47.62 Sleep related leg cramps; G89.29 Other chronic pain; R53.83 Other fatigue; G47.9 Sleep disorder, unspecified; R93.89 Abnormal findings on diagnostic imaging of other specified body structures; F17.210 Nicotine dependence, cigarettes, uncomplicated; Z79.899 Other long term (current) drug therapy | CPT/HCPCS: 99212 ==

== ENCOUNTER 2025-05-27 11:26 | Outpatient (AMB) | payer OTHER, SELFPAY ==
--- NOTE | 2025-05-27 11:41 | MHC.OFFVIS ---
Vital Signs 05/27/25 11:42 Height 5 ft 8 in Weight 160 lb 6 oz BMI 24.4 Pulse 90 Pulse Source Pulse Oximeter Pulse Oximetry (%) 98 Oxygen Delivery Method Room Air Intake Visit Reasons: 6wk f/u Intake Note: Patient presents follow up Sleep/Migraine medication. PSG booked 05/28. Patient states migraines states migraines are pretty good. had only a few in last month(might be due to the heat)SOmetimes pain on left side with blurry vision/ with Aura Accompanied by: Self / Same As Patient Allergies latex Allergy (Unknown, Verified 05/27/25 11:49) pruritis orange Allergy (Unknown, Verified 05/27/25 11:49) Pruritis HPI Comments Details: 45 yo r. handed female comes for management of acute and chronic migraines. HST completed 03/2025 she does not have sleep apnea AHI was <3 and oxygen betito to 88%. MRI reviewed with patient today c/w mild local mass effect, neuro-surgeon consult with Dr. Durbin in [facility] is pending May,. She does not sleep well and has trouble falling asleep with frequent arousals during sleep due to the nightly headaches which wake her up from sleep leading to excessive daytime fatigue. She c/o chronic unilateral and or bilateral, temporal, parietal and occipital pain. Her entire head starts to pulsate, with pounding pain and severe nausea, followed by vomiting. She has photophobia, phonophobia, and blurry vision. She has auras with light flashing circular patterns, and pulling sensation of the neck. With the recent heat wave she notices few migraines every other day, l. sided and throbbing stabbing pain 8/10 intensity. Her hands begin to tingle always L>R. The headaches last few hrs to days and improved with Sumatriptan 50mg to 100mg every other day she had partial effect and was running out of her medication. She continues to have 5-7 headaches which if not controlled become migraines. She tried Rizatriptan 10mg and every other day noticed she is headache free every other day, which has improved from daily migra kaiden. She continues to take her amitriptyline 25mg po daily at bedtime and still wakes up with headaches in the middle of the night. She has anxiety which is controlled with lorazepam. She stopped taking the Flexiril and Gabapentin as it was too sedating. She smokes 1 to 1.5 pack of cigarettes daily, her voice is raspy, and coughs between sentences. She also uses MJ to help her stay asleep through the night. RLS symtpoms She also reports leg cramps at rest, though they don't wake her up at night, she does have an uncomfortable sensation bilaterally in her feet and she says the magnesium helps. She had to reschedule her appt for neurosurgeon consult due to family emergency, May 07 to consult June 23. [facility] Medical History Abnormal MRI Chronic migraine with aura FHx: cerebral aneurysm Leg cramps, sleep related Snoring Hypersomnia MDD (major depressive disorder), recurrent episode, moderate Lumbar disc herniation with myelopathy Asthma Chronic migraine Hx of cervical cancer Surgical History History of esophagogastroduodenoscopy (EGD) H/O colonoscopy History of elbow surgery History of removal of cyst History of hysterectomy History of section Family History Father Diabetes PAD (peripheral artery disease) Hypertension Mother CAD (coronary artery disease) Emphysema lung Sister No problems noted. Brother No problems noted. 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 Cognitive needs: No Hearing needs: No Vision needs: No Female Reproductive History Menstrual Age of Menarche: 11 Physical Exam Vital Signs: Last Vital Signs Pulse 90 05/27/25 11:42 Pulse Ox 98 05/27/25 11:42 Oxygen Delivery Method Room Air 05/27/25 11:42 BMI result Body Mass Index 24.4 Const General: cooperative and no acute distress Nutritional Appearance: average body habitus Orientation/consciousness: patient oriented x3 HEENT Face and sinus: Yes face symmetric Eyes Pupils: Equal, round and reactive pupils present Resp Effort & Inspection: normal respiratory effort and able to speak in complete sentences Neuro Other: raspy voice General: patient oriented x3 and moves all extremities Cranial nerves: Yes Equal, round and reactive pupils present, Yes Normal accommodation reflex present, Yes Nystagmus not present, Yes Normal facial strength present, Yes Midline tongue present, Yes Ability to bilaterally rotate head present (pain on rotation bilaterally) and Yes Ability to bilaterally elevate shoulders present Gait exam (Neuro): Normal gait present Motor exam (neuro): Normal motor muscle tone present throughout Psych Appearance: grossly normal Results Reviewed Results Reviewed: 02/2025 MRI Findings: Limited sequences as a follow-up from a 02/20/2025 study. Reference postcontrast axial image 11 and postcontrast coronal image 27, there is a uniformly enhancing dural-based mass along the inferior left frontal lobe, measuring up to 1.6 x1 0.2 x 1.0 cm. This results in mild local mass effect. No midline shift. No surrounding edema. Thin slice high-resolution images through the IAC's demonstrate no cerebellopontine angle mass or abnormal enhancement along the cranial nerves. 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 No cerebellopontine angle mass or evidence of see lesion. Assessment & Plan Assessment & Plan (1) Fatigue due to sleep pattern disturbance: Code(s): R53.83 - Other fatigue; G47.9 - Sleep disorder, unspecified Category: Medical (2) Leg cramps, sleep related: Comment: psg? HST was normal will evaluate for RLS/ plmd Labs are normal Code(s): G47.62 - Sleep related leg cramps Category: Medical Plan: PLMD/RLS (3) Abnormal MRI: Comment: meningioma Code(s): R93.89 - Abnormal findings on diagnostic imaging of other specified body structures Category: Medical (4) Cervicalgia: Comment: Will consider Botox in the future. Code(s): M54.2 - Cervicalgia Category: Medical (5) Chronic migraine with aura: Code(s): G43.E09 - Chronic migraine with aura, not intractable, without status migrainosus Category: Medical Qualifiers: Status migrainosus presence: without status migrainosus Intractability: not intractable Qualified Code(s): G43.E09 - Chronic migraine with aura, not intractable, without status migrainosus (6) Acute migraine: Code(s): G43.909 - Migraine, unspecified, not intractable, without status migrainosus Category: Medical Plan RLS / PLMD Stop Gabapentin 300mg po at bedtime and stop cyclobenzaprine 5 mg qhs, too sedating. Preventive treatment for Acute migraines continue Rizatriptan 10mg po daily may take one additional tablet within 2 hours to abort migraines. Do not exceed more than 3 tablets daily. Partial effectiveness, still having migraines every other day. Previously trialed Sumatriptan 100mg po partial effectiveness, still having 2-3 migraines every other day. Chronic migraine preventive therapy Continue with Amitriptyline 50mg po qhs at bedtime daily. Continue magnesium 400mg qhs at bedtime, and Riboflavin 400mg qam, for sleep difficulties and fatigue. Start Nurtec disintegrating tablets every other day for migraine prevention. Continue pain management with [facility] for Herniated Lumbar disc and Bilateral Radiculopathy/RLS?PLMD? Cervicalgia will trial Botox in future if neck pain and migraines don't improve. F/u in 1-2 months once neuro surgeon consult is completed with Dr. Heath at [facility]. Medications: New rimegepant (Nurtec ODT) take one tablet nurtec odt 75mg disintegrating, underneath the tongue every other day for prevention of acute migraines. 75 mg PO Q OTHER DAY 15 tabs 0RF acute migraines 1 month MDD 75mg po G43.909 - Migraine, unspecified, not intractable, without status migrainosus Changed From amitriptyline 25 mg PO BEDTIME 30 days 30 tabs 3RF G43.709 - Chronic migraine without aura, not intractable, without status migrainosus To amitriptyline take 1- 50mg tablet daily at bedtime for chronic migraines. 50 mg PO BEDTIME 30 tabs 3RF migraines 30 days MDD 50mg G43.709 - Chronic migraine without aura, not intractable, without status migrainosus Patient Instructions: Sleep Hygiene provided: set a scheduled bedtime and wake time to help regulate the circadian rhythm and balance the release of pituitary hormones. Sleep in a dark room, temperatures below 68 degrees, and no devices n bed. Limit caffeinated products 6 hours prior to bed, and limit fluids 2-4 hours prior to bed. Gentle night yoga, diffusing essential oils, and playing soft music can be relaxing. Coding Level of Care Code Est Pt Level 4 (50650) Complex EM visit Add On G2211 Diagnoses Fatigue due to sleep pattern disturbance R53.83; G47.9 Leg cramps, sleep related G47.62 Abnormal MRI R93.89 Cervicalgia M54.2 Chronic migraine with aura without status migrainosus, not intractable G43.E09 Status migrainosus presence: without status migrainosus Intractability: not intractable Acute migraine G43.909 Time Spent (min) 30 Comment migraines not well managed
[2025-05-27 11:42] VITALS: PULSE 90; O2SAT 98; BMI 24.4
--- OUTSIDE RECORDS SUMMARY | 2025-05-27 12:15 | XMS_ITS | Clinical Summary ---
Author Organization [facility] Address [address] [place] [address] Phone Care Team Providers Care Events Intern Name Role Phone Nathaniel Basurto Primary Care Provider [phone] Allergies Active Allergy Reactions Criticality Noted Date Comments Latex Itching 02/21/2025 Medications albuterol HFA (PROAIR HFA ; PROVENTIL HFA ; VENTOLIN HFA) 90 mcg/actuation inhaler Inhale 2 puffs by mouth every 4 (four) hours if needed for wheezing or shortness of breath. 1 each Active Surgical History Surgery Date Site/Laterality Comments HYSTERECTOMY 04/27/2014 PROCEDURE: HISTORICAL HYSTERECTOMY Medical History Medical History Date Comments Cervical cancer ([facility] V24 , [facility] V28) 01/05/2015 DX:Cervical cancer ([facility]) Marijuana use 01/05/2015 DX:Marijuana use [...] 74 02/21/2025 10:19 AM EDT Temperature 36.3 C (97.3 F) 02/21/2025 10:19 AM EDT Respiratory Rate 16 02/21/2025 10:19 AM EDT [...] HIV Screening 10/29/2022 Hepatitis C Screening 10/29/2022 Medicare Annual Wellness Visit 10/29/2022 Social Influencers of Health Screening 10/29/2022 COVID-19 Vaccine (5 - season) 2024 09/20/2022, 05/05/2022, 11/03/2021, Additional [...] on patient's age to complete this topic Insurance [facility] Member Subscriber Plan / Payer ( fective 2024-Present) Name:Anita Arriola Relation to Subscriber:Self Name:Anita Arriola Payer ID:[id number] Group ID:[id number] Type:Not on file Address: [address] [place] [address] [employer] Member Subscriber Plan / Payer ( fective 2024-Present) Name:Anita Arriola Relation to Subscriber:Self Name:Anita Arriola Payer ID:[id number] Group ID:[id number] Type:Not on file Address: [address] [place] [address] Care Teams Events Intern Relationship Specialty Start Date End Date Nathaniel Basurto PA [address] [place] [phone] PCP - General Physician Front Office Medical Assistant 02/21/25
== END 2025-05-27 12:41 | disposition home or self-care (01) ==
LOC: HO.HSMS 11:26
PROVIDERS: PCP Physician Assistant; Visit Provider Physician Assistant Medical
DX: R53.83 Other fatigue (principal); G47.9 Sleep disorder, unspecified; G47.62 Sleep related leg cramps; R93.89 Abnormal findings on diagnostic imaging of other specified body structures; M54.2 Cervicalgia; G43.E09 Chronic migraine with aura, not intractable, without status migrainosus; G43.909 Migraine, unspecified, not intractable, without status migrainosus
CPT/HCPCS: 99214; G2211

== ENCOUNTER → 2025-05-27 11:26 | Outpatient (BNVA) | payer OTHER, SELFPAY | PROVIDERS: PCP Physician Assistant; Visit Provider Physician Assistant Medical | DX: G43.E09 Chronic migraine with aura, not intractable, without status migrainosus (principal); R53.83 Other fatigue; G47.62 Sleep related leg cramps; M54.2 Cervicalgia; R93.89 Abnormal findings on diagnostic imaging of other specified body structures | CPT/HCPCS: 99212 ==

== ENCOUNTER → 2025-05-28 20:30 | Outpatient (REF) | payer OTHER, SELFPAY ==
--- OUTSIDE RECORDS SUMMARY | 2025-05-28 21:46 | XMS_ITS | Clinical Summary ---
Author Organization [facility] Address [address] [place] [address] Phone Care Team Providers Care Supervisory Forester Name Role Phone Nathaniel Basurto Primary Care Provider [phone] Allergies Active Allergy Reactions Criticality Noted Date [...] Medical History Date Comments Cervical cancer ([facility] V24 , [facility] V28) 01/05/2015 DX:Cervical cancer ([facility]) Marijuana use 01/05/2015 DX:Marijuana use ; COMMENT: [...] patient's age to complete this topic Insurance [facility] Member Subscriber Plan / Payer ( fective 2024-Present) Name:Anita Arriola Relation to Subscriber:Self Name:Anita Arriola Payer ID:[id number] Group ID:[id number] Type:Not on file Address: [address] [place] [address] [employer] Member Subscriber Plan / Payer ( fective 2024-Present) Name:Anita Arriola Relation to Subscriber:Self Name:Anita Arriola Payer ID:[id number] Group ID:[id number] Type:Not on file Address: [address] [place] [address] Care Teams Supervisory Forester Relationship Specialty Start Date End Date Nathaniel Basurto PA [address] [place] [phone] PCP - General Physician Marketing Sales Consultant 02/21/25
== END ==
LOC: HO.SL 20:30
PROVIDERS: PCP Physician Assistant; Visit Provider Physician Assistant Medical
DX: G47.9 Sleep disorder, unspecified (principal); G47.62 Sleep related leg cramps; R53.83 Other fatigue
CPT/HCPCS: 95810

== ENCOUNTER → 2025-05-28 21:37 | Outpatient (BNV) | payer OTHER, SELFPAY | PROVIDERS: PCP Physician Assistant; Visit Provider Psychiatry & Neurology Neurology | DX: G47.9 Sleep disorder, unspecified (principal) | CPT/HCPCS: 95810 ==

== ENCOUNTER 2025-07-02 10:43 | Outpatient (AMB) | payer OTHER, SELFPAY ==
--- NOTE | 2025-07-02 10:44 | A.OFFVIS_ITS ---
Vital Signs 07/02/25 10:45 Height 5 ft 8 in Weight 167 lb 6 oz BMI 25.4 BP 120/88 Blood Pressure Location Rt brachial Position Sitting Pulse 90 Pulse Source Pulse Oximeter Pulse Oximetry (%) 97 Oxygen Delivery Method Room Air Intake Visit Reasons: Follow up Intake Note: Patient presents follow up Migraine medication. Patient states migraine have been controlled. Nurtec does not work(Makes her heart flutter/racing. Would like to stay with Sumatriptan. Gabapentin taken as needed Accompanied by: Self / Same As Patient Allergies latex Allergy (Unknown, Verified 07/02/25 10:47) pruritis orange Allergy (Unknown, Verified 07/02/25 10:47) Pruritis HPI Comments Details: 45 yo r. handed female comes for management of acute and chronic migraines. HST completed 03/2025 she does not have sleep apnea AHI was <3 and oxygen betito to 88%. Neuro-surgeon consult reviewed with her today and she will continue with observation per her consult with Dr. Durbin, [facility]. She does not sleep well and has trouble falling asleep with frequent arousals during sleep due to the nightly headaches which wake her up from sleep leading to excessive daytime fatigue. Migraines: She c/o chronic unilateral and or bilateral, temporal, parietal and occipital pain. Her entire head starts to pulsate, with pounding pain and severe nausea, followed by vomiting. She has photophobia, phonophobia, and blurry vision. She has auras with light flashing circular patterns, and pulling sensation of the neck. With the recent heat wave she notices few migraines every other day, l. sided and throbbing stabbing pain 8/10 intensity. Her hands begin to tingle always L>R. The headaches last few hrs to days and improve with Sumatriptan 50mg to 100mg every other day she had partial effect and was running out of her medication. She continues to have 5-7 headaches which if not controlled become migraines. She tried Rizatriptan 10mg and every other day and noticed she is headache free every other day, which has improved from daily migra kaiden. She continues to take her Amitriptyline 25mg po daily at bedtime and still wakes up with headaches in the middle of the night. She has anxiety which is controlled with lorazepam. She smokes 1 to 1.5 pack of cigarettes daily, her voice is raspy, and coughs between sentences. She also uses MJ to help her stay asleep through the night. RLS symtpoms: She also reports leg cramps at rest, though they don't wake her up at night, but has an uncomfortable sensation bilaterally in her feet and she says the magnesium helps. Sometimes she will take 100-200mg gabapentin at night. [facility] Medical History Abnormal MRI Chronic migraine with aura FHx: cerebral aneurysm Leg cramps, sleep related Snoring Hypersomnia MDD (major depressive disorder), recurrent episode, moderate Lumbar disc herniation with myelopathy Asthma Chronic migraine Hx of cervical cancer Surgical History History of esophagogastroduodenoscopy (EGD) H/O colonoscopy History of elbow surgery History of removal of cyst History of hysterectomy History of section Family History Father Diabetes PAD (peripheral artery disease) Hypertension Mother CAD (coronary artery disease) Emphysema lung Sister No problems noted. Brother No problems noted. 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 Cognitive needs: No Hearing needs: No Vision needs: No Female Reproductive History Menstrual Age of Menarche: 11 Physical Exam Vital Signs: Last Vital Signs Pulse 90 07/02/25 10:45 BP 120/88 07/02/25 10:45 Pulse Ox 97 07/02/25 10:45 Oxygen Delivery Method Room Air 07/02/25 10:45 BMI result Body Mass Index 25.4 Const General: cooperative and no acute distress Nutritional Appearance: average body habitus Orientation/consciousness: patient oriented x3 HEENT Face and sinus: Yes face symmetric Eyes Pupils: Equal, round and reactive pupils present Resp Effort & Inspection: normal respiratory effort and able to speak in complete sentences Neuro Other: raspy voice General: patient oriented x3 and moves all extremities Cranial nerves: Yes Equal, round and reactive pupils present, Yes Normal accommodation reflex present, Yes Nystagmus not present, Yes Normal facial strength present, Yes Midline tongue present, Yes Ability to bilaterally rotate head present (pain on rotation bilaterally) and Yes Ability to bilaterally elevate shoulders present Gait exam (Neuro): Normal gait present Motor exam (neuro): Normal motor muscle tone present throughout Psych Appearance: grossly normal Assessment & Plan Assessment & Plan (1) Fatigue due to sleep pattern disturbance: Code(s): R53.83 - Other fatigue; G47.9 - Sleep disorder, unspecified Category: Medical (2) Leg cramps, sleep related: Comment: psg? HST was normal will evaluate for RLS/ plmd Labs are normal Code(s): G47.62 - Sleep related leg cramps Category: Medical Plan: PLMD/RLS (3) Abnormal MRI: Comment: meningioma / surgical consult with Dr. Durbin Code(s): R93.89 - Abnormal findings on diagnostic imaging of other specified body structures Category: Medical (4) Cervicalgia: Comment: Will consider Botox in the future. Code(s): M54.2 - Cervicalgia Category: Medical (5) Chronic migraine with aura: Code(s): G43.E09 - Chronic migraine with aura, not intractable, without status migrainosus Category: Medical Qualifiers: Status migrainosus presence: without status migrainosus Intractability: not intractable Qualified Code(s): G43.E09 - Chronic migraine with aura, not intractable, without status migrainosus (6) Acute migraine: Code(s): G43.909 - Migraine, unspecified, not intractable, without status migrainosus Category: Medical Plan Abnormal MRI finding of Meningioma Neuroconsult completed per Dr. Durbin [facility] will f/u w/ annual MRIs. RLS / PLMD Stop Gabapentin 300mg po at bedtime and stop cyclobenzaprine 5 mg qhs, too sedating, decreased use to 100mg po now. Migraines Preventive treatment for Acute migraines continue Rizatriptan 10mg po daily may take one additional tablet within 2 hours to abort migraines. Do not exceed more than 3 tablets daily. Partial effectiveness, still having migraines every other day. Previously trialed Sumatriptan 100mg po partial effectiveness, still having 2-3 migraines every other day, prefers to use Sumatriptan. Discontinued Nurtec. disintegrating tablets for migraine prevention due to s/e of metallic taste in mouth, flutters and anxiety. Chronic migraine preventive therapy Continue with Amitriptyline 50mg po qhs at bedtime daily. Continue magnesium 400mg qhs at bedtime, and Riboflavin 400mg qam, for sleep difficulties and fatigue. RLS /PLMD Continue pain management with [facility] for Herniated Lumbar disc and Bilateral Radiculopathy/RLS?PLMD? Stop Gabapentin 300mg po at bedtime and stop cyclobenzaprine 5 mg qhs, too sedating, decreased use to 100mg po now. Cervicalgia will trial Botox in future if neck pain and migraines don't improve. BB? or calcium ch. tanja? or injectable F/u in 1-2 months once neuro surgeon consult is completed with Dr. Heath at [facility]. Patient Instructions: Sleep Hygiene provided: set a scheduled bedtime and wake time to help regulate the circadian rhythm and balance the release of pituitary hormones. Sleep in a dark room, temperatures below 68 degrees, and no devices n bed. Limit caffeinated products 6 hours prior to bed, and limit fluids 2-4 hours prior to bed. Gentle night yoga, diffusing essential oils, and playing soft music can be relaxing. Coding Level of Care Code Est Pt Level 4 (05195) Diagnoses Fatigue due to sleep pattern disturbance R53.83; G47.9 Leg cramps, sleep related G47.62 Abnormal MRI R93.89 Cervicalgia M54.2 Chronic migraine with aura without status migrainosus, not intractable G43.E09 Status migrainosus presence: without status migrainosus Intractability: not intractable Acute migraine G43.909
[2025-07-02 10:45] VITALS: BP 120/88; PULSE 90; O2SAT 97; BMI 25.4
--- OUTSIDE RECORDS SUMMARY | 2025-07-02 11:24 | XMS_ITS | Clinical Summary ---
Author Organization [facility] Address [address] [place] [address] Phone Care Team Providers Care Supervisor Dock Name Role Phone Nathaniel Basurto Primary Care Provider [phone]- [phone] Allergies Active Allergy Reactions Criticality Noted Date [...] History Medical History Date Comments Cervical cancer ([facility]24 , [facility] V28) 01/05/2015 DX:Cervical cancer ([facility]) Marijuana use 01/05/2015 DX:Marijuana use ; COMMENT: [...] Panel) 10/29/2022 Colorectal Cancer Screening: Colonoscopy 10/29/2022 HIV Screening 10/29/2022 Hepatitis C Screening 10/29/2022 Medicare Annual Wellness Visit 10/29/2022 Social Influencers of Health Screening 10/29/2022 COVID-19 Vaccine (5 - season) 2024 09/20/2022, 05/05/2022, 11/03/2021, Additional history exists Depression Screening 11/26/2024 Influenza Vaccine (#1) 2025 , 09/12/2023, 10/13/2021, Additional history exists DTaP,Tdap,and Td Vaccines (5 - Td or Tdap) 03/25/2029 03/25/2019, 08/12/2016, 04/27/2016, Additional history exists Pneumococcal Vaccine: Pediatrics (0 to 5 Years) and At-Risk Patients (6 to 49 Years) Completed 03/12/2023, 06/22/2016 HIB Vaccines Aged Out No longer eligi [...] patient's age to complete this topic Insurance [facility] Member Subscriber Plan / Payer (Ef fective 2024-Present) Name:Anita Arriola Relation to Subscriber:Self Name:Anita Arriola Payer ID:[id number] Group ID:[id number] Type:Not on file Address: [address] [place] [address] [employer] Member Subscriber Plan / Payer ( fective 2024-Present) Name:Anita Arriola Relation to Subscriber:Self Name:Anita Arriola Payer ID:[id number] Group ID:[id number] Type:Not on file Address: [address] [place] [address] Care Teams Supervisor Dock Relationship Specialty Start Date End Date Nathaniel Basurto PA [address] [place] [phone] PCP - General Physician Boilermaker Helper 02/21/25
== END 2025-07-02 11:16 | disposition home or self-care (01) ==
LOC: HO.HSMS 10:43
PROVIDERS: PCP Physician Assistant; Visit Provider Physician Assistant Medical
DX: R53.83 Other fatigue (principal); G47.9 Sleep disorder, unspecified; G47.62 Sleep related leg cramps; R93.89 Abnormal findings on diagnostic imaging of other specified body structures; M54.2 Cervicalgia; G43.E09 Chronic migraine with aura, not intractable, without status migrainosus; G43.909 Migraine, unspecified, not intractable, without status migrainosus
CPT/HCPCS: 99214

== ENCOUNTER → 2025-07-02 10:43 | Outpatient (BNVA) | payer OTHER, SELFPAY | PROVIDERS: PCP Physician Assistant; Visit Provider Physician Assistant Medical | DX: G47.62 Sleep related leg cramps (principal); R53.83 Other fatigue; G47.9 Sleep disorder, unspecified; R93.89 Abnormal findings on diagnostic imaging of other specified body structures; M54.2 Cervicalgia; G43.E09 Chronic migraine with aura, not intractable, without status migrainosus | CPT/HCPCS: 99212 ==

== ENCOUNTER 2025-07-15 13:59 | Outpatient (AMB) | payer OTHER, SELFPAY ==
--- NOTE | 2025-07-15 14:10 | MHC.OFFVIS ---
Vital Signs 07/15/25 14:14 Height 5 ft 8 in Weight 168 lb BMI 25.5 BP 124/77 Blood Pressure Location Rt brachial Position Sitting Pulse 91 Intake Visit Reasons: Hemorrhoids Intake Note: Patient referred by pcp Nathaniel Basurto PA-C for evaluation and treatment of hemorrhoids. Patient c/o: bleeding after BM. On and off constipation. Hx of colonoscopy yrs ago. Press Loader Required: No Accompanied by: Self / Same As Patient Allergies latex Allergy (Unknown, Verified 07/15/25 14:12) pruritis orange Allergy (Unknown, Verified 07/15/25 14:12) Pruritis Medication List - Last Reconciled 07/15/25 by Frederick Chao MD albuterol sulfate 90 mcg/actuation 1 puff inhalation QID PRN amitriptyline 50 mg PO BEDTIME 30 days MDD 50mg clonidine HCl 0.2 mg PO BID 30 days cyclobenzaprine 10 mg PO BEDTIME 30 days docusate sodium 100 mg PO BEDTIME gabapentin 300 mg PO BEDTIME lactulose 20 grams (30 mL) PO BID PRN 15 days lorazepam 0.5 mg PO DAILY 30 days magnesium oxide 400 mg PO BEDTIME nicotine 1 patch transdermal Q24H 14 days nicotine 1 patch transdermal DAILY 14 days omeprazole 20 mg PO DAILY ondansetron HCl 8 mg PO Q12H 10 days peg 3350-electrolytes 236-22.74-6.74 -5.86 gram (Golytely) 240 mL PO Q10M prednisone 20 mg PO DAILY 7 days riboflavin (vitamin B2) 400 mg PO QAM rizatriptan 10 mg PO Q2-4H PRN 30 days MDD 20mg sennosides (senna) 17.2 mg (2 x 8.6 mg) PO DAILY sumatriptan succinate take 1 tab at onset of headache; if no relief, may repeat 1 tab after at least 2 hrs; max = 2 tabs/24 hrs orally PRN; 30 days HPI HPI Hemorrhoids: Details: 45-year-old female referred for bleeding hemorrhoids. She says that she has had this problem of passage of blood per rectum bowel movements for ?several months?. She denies any pain. She just note that she has hemorrhoids and she says that she can feel this outside her anus . She denies any complaints including constipation. She does describe discomfort with the hemorrhoids. She says she is healthy overall. She does complain of back pain and migraine. [facility] Medical History Abnormal MRI Chronic migraine with aura FHx: cerebral aneurysm Leg cramps, sleep related Snoring Hypersomnia MDD (major depressive disorder), recurrent episode, moderate Lumbar disc herniation with myelopathy Asthma Chronic migraine Hx of cervical cancer Surgical History History of esophagogastroduodenoscopy (EGD) H/O colonoscopy History of elbow surgery History of removal of cyst History of hysterectomy History of section Family History Father Diabetes PAD (peripheral artery disease) Hypertension Mother CAD (coronary artery disease) Emphysema lung Sister No problems noted. Brother No problems noted. 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 Cognitive needs: No Hearing needs: No Vision needs: No Female Reproductive History Menstrual Age of Menarche: 11 Review of Systems Const Denies chills and Denies fever(s) Card Denies chest pain, Denies dyspnea and Denies dyspnea on exertion Resp Denies cough, Denies dyspnea and Denies dyspnea on exertion GI Reports hematochezia and Denies change in bowel habits Denies hematuria Musc Denies back pain and Denies limited range of motion Neuro Denies focal weakness and Denies convulsions Psych Denies depression and Denies mood swings Physical Exam Vital Signs: Last Vital Signs Pulse 91 07/15/25 14:14 BP 124/77 07/15/25 14:14 BMI result Body Mass Index 25.5 Const General: comfortable and no acute distress Orientation/consciousness: patient oriented x3 Neck Neck: Yes no lymphadenopathy Resp Auscultation: clear to auscultation bilaterally Cardio Rhythm: regular rhythm GI Other: Rectal exam shows large external hemorrhoids on both the left and right side, not currently bleeding Palpation (GI): Soft to palpation, nontender and no guarding Neuro General: patient oriented x3 Office Procedures Anoscopy She was in prone delilah-knife position. The anoscope was gently inserted. A full examination of the anal canal was done. She did have mixed internal and external hemorrhoidal columns, large sized mostly on the right side but also on the left. There were no lesions seen. There was no fissure ulceration there. There was no tenderness or bleeding. [id number] Assessment & Plan Assessment & Plan (1) Bleeding hemorrhoid: Code(s): K64.9 - Unspecified hemorrhoids Category: Medical Plan: She has describes significant passage of bright blood per rectum. She says that this often lingers for a few days . He she also describes discomfort with the hemorrhoids and says that these feels swollen currently. She says she uses a cream for this periodically. She wants to proceed with a hemorrhoidectomy. I had a long discussion with her about the technique of exam under anesthesia and hemorrhoidectomy. I explained the risks including but not limited to bleeding, infections and postop pain. I reviewed the benefits and alternatives. I also explained to her what to expect postoperatively She understands and wants to proceed. She says that she seeing a market consultant. I am uncertain if she is scheduled to have a colonoscopy and I told her that if she is, we will do the hemorrhoidectomy after her colonoscopy is done. Coding Level of Care Code New Pt Level 3 (59928) Diagnoses Bleeding hemorrhoid K64.9 CPT Codes Details - CPT: 33542-[id number] ([id number])
[2025-07-15 14:14] VITALS: BP 124/77; PULSE 91; BMI 25.5
== END 2025-07-15 14:57 | disposition home or self-care (01) ==
PROVIDERS: PCP Physician Assistant; Referring Provider Physician Assistant; Visit Provider Surgery
DX: K64.9 Unspecified hemorrhoids (principal)
CPT/HCPCS: 46600; 99203

== ENCOUNTER → 2025-07-15 13:59 | Outpatient (BNVA) | payer OTHER, SELFPAY | PROVIDERS: PCP Physician Assistant; Referring Provider Physician Assistant; Visit Provider Surgery | DX: K64.8 Other hemorrhoids (principal) | CPT/HCPCS: 46600; 99202 ==

== ENCOUNTER 2025-07-22 10:13 | Outpatient (REF) | payer OTHER, SELFPAY ==
[2025-07-24 22:28] LABS: TS Negative Control Passed; TS Panel A 2; TS Panel B 2; TS Positive Control Passed; TSpotTB Negative (Negative)
== END 2025-07-22 10:14 | disposition home or self-care (01) ==
LOC: HO.HKASLDS 10:13
PROVIDERS: Visit Provider Physician Assistant
DX: Z11.1 Encounter for screening for respiratory tuberculosis (principal)
CPT/HCPCS: 36415; 86481

== ENCOUNTER 2025-08-13 13:00 | Outpatient (AMB) | payer OTHER, SELFPAY ==
--- NOTE | 2025-08-13 13:01 | A.OFFPC_ITS ---
Vital Signs 08/13/25 13:02 Height 5 ft 8 in Weight 165 lb 2 oz BMI 25.1 BP 132/70 Blood Pressure Location Lt brachial Position Sitting Pulse 93 Pulse Source Pulse Oximeter Temp 97.1 F Temp Source Temporal Artery Scan Pulse Oximetry (%) 98 Oxygen Delivery Method Room Air Intake Visit Reasons: follow up Intake Note: Patient is here to follow up on Smoking Cessation. Charge Poster Required: No Dealmaker: Not Required per policy Accompanied by: Self / Same As Patient Allergies latex Allergy (Unknown, Verified 08/13/25 13:24) pruritis orange Allergy (Unknown, Verified 08/13/25 13:24) Pruritis Tobacco use date assessed: 08/13/25 Dental Screening Dental Screen Date: 03/24/25 HPI follow up HPI Details Patient is a 45-year-old female here today for a follow-up visit Patient has a past medical history significant for tobacco use disorder, generalized anxiety disorder, chronic lumbar spine pain, migraines.. Anxiety: The patient has been experiencing anxiety, which has been exacerbated by recent life events, including the of her sister from a tumor. She reports that her anxiety contributes to her smoking habits, which she has been unable to quit. She has a history of meningioma, identified on a brain MRI, and is under surveillance by a neurosurgeon due to its location near the olfactory nerve, which complicates surgical intervention. Meningioma: Patient followed by neurosurgeon at [facility] in for now will undergo surveillance of her brain meningioma Migraines: Patient followed by Neurology and has been started on new migraine medication which has been helping her tremendously reducing her frequency of her migraines. .. Anxiety: She does report her anxiety is fairly well controlled with p.r.n. use of her lorazepam. Does have clonidine she uses on an as needed basis as well. He is not speaking with a mental health therapist at this time . GERD: She reports her GERD symptoms has been more evident lately. Unfortunately still smoking. She is using omeprazole daily though does not feel it is as effective as it once was. Will increase her dose of omeprazole to 40 mg Tabacco use disorder:? unfortunately still smoking though has cut down some.? She continues to try to quit smoking she does have nicotine patches available to her. Has tried Chantix though has not been effective. [facility] Medical History Abnormal MRI Chronic migraine with aura FHx: cerebral aneurysm Leg cramps, sleep related Snoring Hypersomnia MDD (major depressive disorder), recurrent episode, moderate Lumbar disc herniation with myelopathy Asthma Chronic migraine Hx of cervical cancer Surgical History History of esophagogastroduodenoscopy (EGD) H/O colonoscopy History of elbow surgery History of removal of cyst History of hysterectomy History of section Family History Father Diabetes PAD (peripheral artery disease) Hypertension Mother CAD (coronary artery disease) Emphysema lung Sister No problems noted. Brother No problems noted. 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 Cognitive needs: No Hearing needs: No Vision needs: No Female Reproductive History Menstrual Age of Menarche: 11 Questionnaire Thrive Questionnaire Date Thrive assessed: 03/24/25 I am a: Patient What is your living situation today?: I have a steady place to live Within the past 12 months, did the food you bought not last and you didn't have the money to get more?: Never true Within the past 12 months, did you worry whether your food would run out before you got money to buy more?: Never true Do you have trouble paying for medicines?: No Do you have trouble getting transportation to medical appointments?: No Do you have trouble paying your heating and electricity bill?: No Do you have trouble taking care of your child, family member or friend?: No Do you have trouble with day-to-day activities such as bathing, preparing meals, shopping, managing finances, etc.?: Yes Are you currently unemployed and looking for a job?: Yes Are you interested in more education?: No Please select the resources that you would like help with: None Currently or been in a relationship where the following occur: No concerns reported THRIVE Score: 0 RAMIRO-7 AMB Questionnaire RAMIRO-7 Date RAMIRO - 7 assessed: 03/24/25 Source: Developed by Drs. Milton Yu, Diamante Naik, Syd Wooten and colleagues, with an educational jeffrey from [employer]. Review of Systems Const Denies headache(s) Eyes Denies loss of vision ENT Denies vertigo, Denies dizziness, Denies headache(s) and Denies sore throat Card Denies chest pain, Denies leg edema and Denies lightheadedness Resp Denies cough, Denies hemoptysis and Denies wheezing GI Denies abdominal pain, Denies melena, Denies constipation, Denies diarrhea and Denies vomiting Denies urinary frequency, Denies dysuria and Denies urinary urgency Musc Denies arthralgias, Denies joint swelling, Denies numbness and Denies tingling Neuro Denies Abnormal speech present, Denies behavioral changes, Denies vertigo, Denies dizziness, Denies headache(s), Denies loss of vision, Denies memory loss, Denies numbness and Denies tingling Psych Denies anxiety, Denies behavioral changes, Denies depression, Denies memory loss and Denies panic attacks Willam/Lymph Denies easy bleeding and Denies easy bruising Aller/Immun Denies wheezing Physical exam (Primary Care) Vital Signs: Last Vital Signs Temp 97.1 F 08/13/25 13:02 Pulse 93 08/13/25 13:02 BP 132/70 08/13/25 13:02 Pulse Ox 98 08/13/25 13:02 Oxygen Delivery Method Room Air 08/13/25 13:02 BMI result Body Mass Index 25.1 Tobacco/Smoking Status: Tobacco use Status Tobacco use date assessed 08/13/25 08/13/25 13:08 Patient Tobacco Use Status Current everyday Tobacco 08/13/25 13:08 Tobacco use type Cigarette 08/13/25 13:08 e-Cigarette/Vaping Use Never Used 08/13/25 13:08 Are you ready to quit: No Tobacco cessation counseling provided: Yes Items discussed: Nicotine replacement Relapse Prevention: discussed the importance of a supportive environment, discussed negative mood or depression after quitting, weight gain after smoking is common and discussed dietary, exercise and/or lifestyle changes Number of minutes spent counselin CPT code: 05562 - 4-10 Minutes Thrive Assessment: Date of Thrive Assessment Date Thrive assessed 03/24/25 08/13/25 13:08 Currently or been in a relationship where the following occur: No concerns reported Const General: healthy appearing, no acute distress, alert and awake Nutritional Appearance: well nourished Orientation/consciousness: oriented to person, oriented to place and oriented to time HENMT Ears: TM's normal bilaterally General nose exam: Normal nasal mucous membranes and turbinates present Eyes Conjunctivae: conjunctivae normal Sclerae: sclerae normal Pupils: Equal, round and reactive pupils present Neck Neck: Yes no lymphadenopathy and Yes no JVD Thyroid: Thyroid normal Carotids: no bruits Resp Effort & Inspection: normal respiratory effort and not tachypneic Auscultation: no crackles, no rales, no rhonchi and no wheezes Cardio Rate: regular rate Rhythm: regular rhythm Heart sounds: no murmurs and normal S1 and S2 GI Palpation (GI): Soft to palpation, nontender, no hepatomegaly and no splenomegaly Auscultation: normal bowel sounds Skin General skin exam: no rashes or lesions noted and dry skin Neuro General: oriented to person, oriented to place and oriented to time Cranial nerves: Yes Equal, round and reactive pupils present Speech: No Abnormal speech present Gait exam (Neuro): Normal gait present Motor exam (neuro): no tremor noted Extrem Right upper extremity: full ROM Left upper extremity: full ROM Right lower extremity: full ROM; no edema Left lower extremity: full ROM; no edema Psych Mental Status: mental status grossly normal Speech and movement: Normal speech and movement present Affect: normal affect Attitude: cooperative Thought process: Normal thought process present Coding Level of Care Code Est Pt Level 4 (80166) Diagnoses RAMIRO (generalized anxiety disorder) F41.1 Meningioma of uncertain behavior D42.9 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 Management includes ongoing support and consideration of mental health therapy, although insurance issues have previously limited access. (2) Meningioma of uncertain behavior: Comment: Neuroconsult with Dr. Durbin at [facility] May 07, 2025 Code(s): D42.9 - Neoplasm of uncertain behavior of meninges, unspecified Category: Medical Plan: The meningioma is being monitored with regular imaging due to its location near the olfactory nerve, which complicates surgical options. The patient is advised to continue with scheduled follow-ups and to consider potential treatment options if growth is observed. 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 She has gotten injections in her back that has given her temporary relief. Will restart tramadol to use on an as needed basis for pain scales of 9-10. Otherwise will continue with the use of her gabapentin and Tylenol. (4) Tobacco dependence: Code(s): F17.200 - Nicotine dependence, unspecified, uncomplicated Category: Medical Plan: The patient has been unable to quit smoking, which is exacerbated by stress and anxiety. Continued encouragement to reduce smoking is advised, with potential consideration of smoking cessation programs or therapies. (5) Allergic rhinitis: Code(s): J30.9 - Allergic rhinitis, unspecified Category: Medical Qualifiers: Allergic rhinitis trigger: pollen Allergic rhinitis seasonality: seasonal Qualified Code(s): J30.1 - Allergic rhinitis due to pollen Plan: The patient is managing allergic rhinitis with loratadine and a nasal spray. A prescription for Montelukast (Singulair) has been provided to improve symptom control. Orders: Orders Complete Blood Count no Diff Today K21.9 - Gastro-esophageal reflux disease without esophagitis Comprehensive [place]. Panel Fast Today Z13.1 - Encounter for screening for diabetes mellitus Medications: New montelukast 10 mg PO DAILY 90 tabs 1RF 90 days J30.9 - Allergic rhinitis, unspecified omeprazole 40 mg PO DAILY 90 caps 1RF 90 days K21.9 - Gastro-esophageal reflux disease without esophagitis tramadol 50 mg PO BID PRN 14 tabs 0RF pain 7 days G99.2 - Myelopathy in diseases classified elsewhere, M48.061 - Spinal stenosis, lumbar region without neurogenic claudication Refilled prednisone 20 mg PO DAILY 7 tabs 0RF 7 days J45.20 - Mild intermittent asthma, uncomplicated albuterol sulfate 90 mcg/actuation 1 puff inhalation QID PRN 18 ea 1RF for wheezing J45.20 - Mild intermittent asthma, uncomplicated Discontinued cyclobenzaprine Discontinued Reason: Doctor's Order 10 mg PO BEDTIME 30 days 30 tabs 1RF G99.2 - Myelopathy in diseases classified elsewhere, M48.061 - Spinal stenosis, lumbar region without neurogenic claudication omeprazole Discontinued Reason: Doctor's Order 20 mg PO DAILY 90 caps 1RF K29.70 - Gastritis, unspecified, without bleeding
[2025-08-13 13:02] VITALS: BP 132/70; PULSE 93; TEMP 36.2; O2SAT 98; BMI 25.1
--- OUTSIDE RECORDS SUMMARY | 2025-08-13 15:01 | XMS_ITS | Clinical Summary ---
Author Organization [facility] Address [address] [place] [address] Phone Care Team Providers Care Manager Agriculture Name Role Phone Nathaniel Basurto Primary Care Provider [phone] Allergies Active Allergy Reactions Criticality Noted Date [...] History Medical History Date Comments Cervical cancer ([facility] V24 , [facility] V28) 01/05/2015 DX:Cervical cancer ([facility]) Marijuana use 01/05/2015 DX:Marijuana use [...] 10/29/2022 Social Influencers of Health Screening 10/29/2022 Depression Screening 11/26/2024 COVID-19 Vaccine ( season) 2025 09/20/2022, 05/05/2022, 11/03/2021, Additional history exists Influenza Vaccine (#1) 2025 , 09/12/2023, 10/13/2021, [...] to complete this topic Insurance [facility] Member Subscriber Plan / Payer (Ef fective 2024-Present) Name:Anita Arriola Relation to Subscriber:Self Name:Anita Arriola Payer ID:[id number] Group ID:[id number] Type:Not on file Address: [address] [place] [id number] [employer] MED[employer] Member Subscriber Plan / Payer ( fective 2024-Present) Name:Anita Arriola Relation to Subscriber:Self Name:Anita Arriola Payer ID:[id number] Group ID:[id number] Type:Not on file Address: [address] [place] [id number] Care Teams Manager Agriculture Relationship Specialty Start Date End Date Nathaniel Basurto PA [address] [place] [id number] PCP - General Physician Contract Post Office Clerk 02/21/25
== END 2025-08-13 13:56 | disposition home or self-care (01) ==
PROVIDERS: PCP Physician Assistant; Visit Provider Physician Assistant
DX: F41.1 Generalized anxiety disorder (principal); D42.9 Neoplasm of uncertain behavior of meninges, unspecified; M48.061 Spinal stenosis, lumbar region without neurogenic claudication; G99.2 Myelopathy in diseases classified elsewhere; F17.200 Nicotine dependence, unspecified, uncomplicated; J30.1 Allergic rhinitis due to pollen

== ENCOUNTER → 2025-08-13 13:00 | Outpatient (BNVA) | payer OTHER, SELFPAY | PROVIDERS: PCP Physician Assistant; Visit Provider Physician Assistant | DX: F41.1 Generalized anxiety disorder (principal); D32.9 Benign neoplasm of meninges, unspecified; G43.909 Migraine, unspecified, not intractable, without status migrainosus; K21.9 Gastro-esophageal reflux disease without esophagitis; M48.061 Spinal stenosis, lumbar region without neurogenic claudication; G99.2 Myelopathy in diseases classified elsewhere; J30.1 Allergic rhinitis due to pollen; J45.20 Mild intermittent asthma, uncomplicated; K29.70 Gastritis, unspecified, without bleeding; F17.210 Nicotine dependence, cigarettes, uncomplicated | CPT/HCPCS: 99212 ==

== ENCOUNTER 2025-09-11 09:33 | Outpatient (REF) | payer OTHER, SELFPAY ==
--- OUTSIDE RECORDS SUMMARY | 2025-09-09 09:26 | XMS_ITS | Encounter Summary ---
Author Organization [employer] Address [address] [place] [address] Care Team Providers Care Inker And Opaquer Name Role Phone Nathaniel Basurto Primary Care Provider Reason for Visit * Reason Comments Hoarseness Encounter Details Date Type Department Care Team (Late st Contact Info) Description 09/09/2025 9:26 AM EDT - 09/09/2025 10:01 AM EDT Emergency [facility] Emergency [address] [place] [address] Dalila Harding MD [address] [place] [address] Viral pharyngitis (Primary Dx); Rib contusion, left, initial encounter Discharge Disposition: Home or Self Care Social History Tobacco Use Types Packs/Day Years Used Date Smoking Tobacco: Every Day Cigarettes Alcohol Use Standard Drinks/Week Comments No 0 (1 standard drink = 0.6 oz pur e alcohol) Comments Unknown Sex and Gender Information Value Date Recorded Sex Assigned at Not on file Legal Sex Female 5:29 AM EST Gender Identity Not on file Sexual Orientation Not on file documented as of this encounter Last Filed Vital Signs Vital Sign Reading Time Taken Comments Blood Pressure 132/89 09/09/2025 9:10 AM EDT Pulse 86 09/09/2025 9:10 AM EDT Temperature 36.3 C (97.4 F) 09/09/2025 9:10 AM EDT Respiratory Rate 16 09/09/2025 9:10 AM EDT Oxygen Saturation 100% 09/09/2025 9:10 AM EDT Inhaled Oxygen Concentration - - Weight 74.8 kg (165 lb) 09/09/2025 9:10 AM EDT Height 170.2 cm (5' 7 ) 09/09/2025 9:10 AM EDT Body Mass Index 25.84 09/09/2025 9:10 AM EDT documented in this encounter Functional Status * Are you deaf or do you have serious difficulty hearing? Answer Date of Assessment Author No 02/21/2025 11:28 AM EDT Giovanna Kirkpatrick RN * Are you blind or do you have serious difficulty seeing, even when wearing glasses? Answer Date of Assessment Author No 02/21/2025 11:28 AM EDT Giovanna Kirkpatrick RN * Do you have serious difficulty walking or climbing stairs? Answer Date of Assessment Author No 02/21/2025 11:28 AM Giovanna Loomis RN * Do you have serious difficulty dressing or bathing? Answer Date of Assessment Author No 02/21/2025 11:28 AM EDT Giovanna Kirkpatrick RN * Because of a physical, mental, or emotional condition, do you have serious difficulty doing errandsalone such as visiting the doctor? Answer Date of Assessment Author No 02/21/2025 11:28 AM ALLANT Giovanna Kirkpatrick RN * Calculated C-SSRS Risk Score (Lifetime/Recent) Answer Date of Assessment Author No Risk Indicated 09/09/2025 9:09 AM EDT Paul Ozuna RN * [place] Suicide Severity Rating Scale (Screener/Recent Self-Report) Question Answer Date of Assessment Author 1. Wish to be (Past 1 Month) No 9:09 AM ALLANT Viktoriya Ozuna RN 2. Non-Specific Active Suici shon Thoughts (Past 1 Month) No 09/09/2025 9:09 AM ALLANT Viktoriya Ozuna RN 6. Suicidal Behavior (Lifetime) No 9:09 AM ALLANT Viktoriya Ozuna RN documented as of this encounter Mental Status * Because of a physical, mental, or emotional condition, do you have serious difficulty concentrating, remembering, or making decisions? (5 years old or older) Answer Entry Date Author No 02/21/2025 11:28 AM EDT Giovanna Kirkpatrick RN documented in this encounter Discharge Instructions * Discharge Instructions* Dalila Harding MD - 09/09/2025 9:28 AM EDT Please take no more than 800 mg of ibuprofen every 8 hours. You can take Robaxin twice a day as needed for pain to your chest wall. You can continue to do things like applying ice or heat. Monitor your hoarseness of your voice and follow-up with your doctor if it does not improve after a number of weeks for further evaluation. * Attachments The following attachments cannot be sent through Care Everywhere. * Chest Contusion (Australian) * Sore Throat (Australian) documented in this encounter Medications at Time of Discharge methocarbamoL (ROBAXIN) 500 mg tablet Take 1 tablet (500 mg total) by mouth 2 (two) times a day if needed for muscle spasms for up to 10 days. 20 tablet 09/09/2025 09/19/2025 documented as of this encounter Ordered Prescriptions Prescription Sig Dispense Quantity Refills Last Filled Start Date End Date methocarbamoL (ROBAXIN) 500 mg tablet Take 1 tablet (500 mg total) by mouth 2 (two) times a day if needed for muscle spasms for up to 10 days. 20 tablet 09/09/2025 09/19/2025 documented in this encounter Discharge Disposition Disposition Code Departure Means Destination Comment s Home or Self Care documented in this encounter Progress Notes * Viktoriya Ozuna RN - 09/09/2025 9:09 AM EDT PT C/O 1 WEEK OF LOSING VOICE LEFT RIB PAIN- DENIES TRAUMA * Dalila Harding MD - 09/09/2025 9:07 AM EDT Images from the original note were not included. [facility] EMERGENCY EMERGENCY DEPARTMENT ENCOUNTER Patient: Anita Arriola MR# [id number] Time of Service: 09/09/2025 9:26 AM History PCP: PETRA Santo. Chief Complaint Patient presents with Hoarseness Anita Arriola is a 45 y.o. female with history of meningioma and chronic back pain who presents to the ED with chief complaint Hoarseness . Patient states that she has had a hoarse voice for about a week. States that it comes and goes. Associated with throat discomfort at right side and has a clicking sensation in her right ear when swallowing. Has pain with swallowing. No fevers, does have mild cough. Also was boxing with her child about a week ago and got hit in the left chest wall and having discomfort of the chest wall. Taking 1600 mg of ibuprofen at a time, has gabapentin that she takes at night. No additional trauma noted. ROS Negative except for HPI. Allergies: Latex and Other Medical History[1] Problem List[2] Surgical History[3] Family History[4] Social History[5] Physical Exam Vitals: 09/09/25 0910 BP: 132/89 Pulse: 86 Resp: 16 Temp: 36.3 ??C (97.4 ??F) TempSrc: Oral SpO2: 100% Weight: 74.8 kg (165 lb) Height: 1.702 m (67 ) General Appearance: No acute distress Skin: Dry Eyes: EOMI, no scleral icterus HENT: Normocephalic, atraumatic, moist mucous membranes, no trismus, no erythema of throat, status post tonsillectomy, no exudate noted, left TM clear bilaterally Neck: Supple, normal range of motion Cardiovascular: Regular rate and rhythm, no murmur, 2+ radial pulses Respiratory: Lungs clear to auscultation bilaterally, no respiratory distress, no wheezing or rhonchi Abdomen: Soft, non-tender, non-distended MSK: Tenderness of left anterior inferior aspect of chest wall without any bruising, swelling, other skin changes noted Neurologic: Awake, alert, no obvious deficits, moving all extremities Psychiatric: Appropriate, cooperative Procedures Medical Decision Making 45-year-old female presenting with hoarseness of voice and sore throat as well as pain of chest wall. No signs of bacterial infection on physical exam of throat. Suspect viral pharyngitis. Patient cinda smoker so we did discuss the possibility that she could have a throat or vocal cord mass but she should monitor for improvement of symptoms as more likely viral infection. If does not improve does have a primary care provider she can follow-up with. In regards to chest wall, suspect contusion based on mechanism of injury and physical exam. Offered chest x-ray but likely not necessary. Patient amenable to plan. Will have patient take appropriate dosing of Motrin, Robaxin as needed for severe pa in. Medications Administered Medications dexAMETHasone (DECADRON) injection 10 mg (has no administration in time range) Clinical Impressions as of 09/09/25 09 Viral pharyngitis Rib contusion, left, initial encounter Prescription management: In addition to any applicable prescriptions, the patient was counseled by me regarding [id number] medications that can be used at home. New Prescriptions METHOCARBAMOL (ROBAXIN) 500 MG TABLET Take 1 tablet (500 mg total) by mouth 2 (two) times a day if needed for muscle spasms for up to 10 days. Disposition: Discharge CLINICAL IMPRESSION: 1. Viral pharyngitis 2. Rib contusion, left, initial encounter 09/09/2025 Dalila Harding MD [1] Past Medical History: Diagnosis Date Cervical cancer (CMS/HCC V24, CMS/HCC V28) 01/05/2015 DX:Cervical cancer (HCC) Diverticulosis 02/22/2015 DX:Diverticulosis Marijuana use 01/05/2015 DX:Marijuana use; COMMENT: + UDS by previous PCP, per pt, last use 11/2014 per pt [2] There is no problem list on file for this patient. [3] Past Surgical History: Procedure Laterality Date HYSTERECTOMY 04/27/2014 PROCEDURE: HISTORICAL HYSTERECTOMY [4] Family History Problem Relation Name Age of Onset Other (Other: COPD ) Mother Other (Other: some type of cancer, no blood ) Mother Cervical cancer Sister [5] Social History Tobacco Use Smoking status: Every Day Current packs/day: 1.00 Types: Cigarettes Substance Use Topics Alcohol use: No Drug use: Yes Dalila Harding MD 09/09/25 0932 documented in this encounter Plan of Treatment Not on file documented as of this encounter Visit Diagnoses Diagnosis Viral pharyngitis- Primary Acute pharyngitis Rib contusion, left, initial encounter documented in this encounter Administered Medications Inactive Administered Medications - up to 3 most recent administrations Medication Order MAR Action Action Date Dose Rate Site dexAMETHasone (DECADRON) injection 10 mg 10 mg, oral, Once, On Sun09/09/25 at 0928, For 1 dose Given 09/09/2025 9:32 AM EDT 10 mg documented in this encounter Active and Recently Administered Medications Times are shown in EDT. Scheduled Medication Order 09/07/2025 09/08/2025 09/09/2025 dexAMETHasone (DECADRON) injection 10 mg (COMPLETED) 10 mg, oral, Once, On Sun09/09/25 at 0928, For 1 dose 0932 (Given - Provid er: Mahi Yeung RN) documented in this encounter Orders Medications Ordered That Nikhil ht Not Have Been Administered Count Last Ordered Date First Ordered Date dexAMETHasone (DECADRON) injection 10 mg 1 09/09/2025 documented in this encounter Care Teams Inker And Opaquer Relationship Specialty Start [place] [address] [place] [phone] PCP - General Physician Adoption Specialist 02/21/25 documented as of this encounter
--- OUTSIDE RECORDS SUMMARY | 2025-09-11 10:53 | XMS_ITS | Clinical Summary ---
Author Organization [facility] Address [address] [place] [address] Phone Care Team Providers Care Armature Straightener Name Role Phone Nathaniel Basurto Primary Care Provider Allergies Active Allergy Reactions Criticality Noted Date Comments Latex Itching 02/21/2025 Other 09/09/2025 ORANGES Medications albuterol HFA (PROAIR HFA ; PROVENTIL HFA ; VENTOLIN HFA) 90 mcg/actuation inhaler Inhale 2 puffs by mouth every 4 (four) hours if needed for wheezing or shortness of breath. 1 each 5 Active methocarbamoL (ROBAXIN) 500 mg tablet Take 1 tablet (500 mg total) by mouth 2 (two) times a day if needed for muscle spasms for up to 10 days. 20 tablet 09/19/20 25 Active Encounters Date Type Department Care Team Description 09/09/2025 9:26 AM EDT - 09/09/2025 10:01 AM EDT Emergency [facility] Emergency [address] [place] [address] Dalila Harding MD Viral pharyngitis (Primary Dx); Rib contusion, left, initial encounter Discharge Disposition: Home or Self Care from Last 3 Months Surgical History Surgery Date Site/Laterality Comments HYSTERECTOMY 04/27/2014 PROCEDURE: HISTORICAL HYSTERECTOMY Medical History Medical History Date Comments Cervical cancer ([facility] V24 , CMS/HCC V28) 01/05/2015 DX:Cervical cancer [...] Mass Index 25.84 09/09/2025 9:10 AM EDT Plan of Treatment Health Maintenance Due Date Last Done Comments Breast Cancer Screening 1979 Colorectal Cancer Screening: Colonoscopy 1979 Hepatitis B Vaccines (1 of 3 - 19+ 3-dose series) 1998 Cervical Cancer Screening: Pap Smear 02/09/2000 Cholesterol Screening (Lipid Panel) 10/29/2022 HIV Screening 10/29/2022 Hepatitis C Screening 10/29/2022 Medicare Annual Wellness Visit 10/29/2022 Social Influencers of Health Screening 10/29/2022 Depression Screening 11/26/2024 COVID-19 Vaccine ( season) 2025 09/20/2022, 05/05/2022, 11/03/2021, Additional history exists Influenza Vaccine (#1) 2025 , 09/12/2023, 10/13/2021, Additional history exists DTaP,Tdap,and Td Vaccines (5 - Td or Tdap) 03/25/2029 03/25/2019, 08/12/2016, 04/27/2016, Additional history exists RSV Immunization Adult Patients (1 - 1-dose 75+ series) 2054 Pneumococcal Vaccine: Pediatrics (0 to 5 Years) [...] patient's age to complete this topic Insurance [facility] Member Subscriber Plan / Payer (Ef fective 2024-Present) Name:ANITA BELCHER Relation to Subscriber:Self Name:Anita Belcher Payer ID:[id number] Group ID:[id number] Type:Not on file Address: [place] [address] [address] [phone] [facility] MEDICARE Member Subscriber Plan / Payer (Ef fective 2024-Present) Name:YENICHOLAS TovarA Relation to Subscriber:Self Name:Ye Anita Cheung Payer ID:[id number] Group ID:[id number] Type:Not on file Address: [place] [address] [address] [phone] Care Teams Armature Straightener Relationship Specialty Start Date End Date Nathaniel Basurto PA [address] [place] [phone] PCP - General Physician [employer] Appliances Demonstrator 02/21/25
[2025-09-11 13:59] LABS: Hematocrit 37.2 % (37.0-47.0); Hemoglobin 11.4 g/dl (12.0-16.0); Mean Corpuscular HGB Conc 30.6 g/dl (31.0-35.0); Mean Corpuscular Hemoglobin 24.7 pg (27.0-33.0); Mean Corpuscular Volume 80.7 fL (80.0-98.0); NRBC Abs Auto 0.000 X10*3/uL (0.0-0.012); NRBC Pct Auto 0.0 /100WBC (0.0-0.2); Platelet Count 398 X10*3/uL (160-400); Red Blood Count 4.61 X10*6/uL (4.20-5.50); White Blood Count 7.7 X10*3/uL (4.8-10.8)
[2025-09-11 16:07] LABS: Alanine Aminotransferase 9 U/L (0-31); Albumin Level 4.0 g/dL (3.5-5.0); Alkaline Phosphatase 75 U/L (39-117); Anion Gap 12 (12-20); Aspartate Amino Transferase 19 U/L (5-31); Blood Urea Nitrogen 11 mg/dL (9-16); Calcium 9.3 mg/dL (8.4-10.2); Carbon Dioxide 29 mmol/L (22-29); Chloride 108 mmol/L (96-108); Estimated Glomerular Filt Rate > 60; Potassium 4.5 mmol/L (3.3-5.1); Sodium 144 mmol/L (135-145); Total Protein 6.3 g/dL (6.5-8.0)
== END 2025-09-11 09:34 | disposition home or self-care (01) ==
LOC: HO.HKASLDS 09:33
PROVIDERS: PCP Physician Assistant; Visit Provider Physician Assistant
DX: K21.9 Gastro-esophageal reflux disease without esophagitis (principal); Z13.1 Encounter for screening for diabetes mellitus
CPT/HCPCS: 36415; 80053; 85027